=== PATIENT | female | born 1935 | race Caucasian/White ===

== ENCOUNTER 2016-11-08 10:09 | Observation (INO) | payer MEDICARE, BC ==
[~2016-11-08] VITALS: Ht 170.2 cm; Wt 65.0 kg
[~2016-11-08 10:09] MED LIST: CALC625 PO; CENTTAB9 PO; CHOL1CAP6 PO; CHOL4 PO; CLAR10TA7 PO; DONE5TAB14 PO; FLUO10TA PO; METO25 PO; NAME10TA PO; POTA20PA PO; VITA60003
[2016-11-08 10:13] VITALS: BP 178/71; PULSE 90; RESP 20; TEMP 98.3; O2SAT 98
[2016-11-08] MEDS ORDERED: SODIUM CHLORIDE 0.9% FLUSH 5 ML FLUSH IVF PRN (10:15)
[2016-11-08] MEDS ORDERED: MORPHINE SULFATE 4 MG/ML INJ IV PUSH ONE (10:30)
--- NOTE | 2016-11-08 10:32 | PD ---
HPI Chief Complaint: Fall Time Seen by Provider: 10:13 Travel History International Travel<30 days: No Contact w/Intl Traveler<30days: No Traveled to known affect area: No History of Present Illness HPI 80-year-old female with history of dementia brought in by ambulance from home for evaluation of head injury after an unwitnessed fall. 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 She found the patient on the floor. The patient was awake when she found the patient. The patient is complaining of some posterior head pain. She does not provide any other history and is likely secondary to her dementia. Med rec with the patient does not show that the patient is on any antiplatelets or anticoagulate. PFSH Past Medical History Alzheimer's Disease: Yes Heart Rhythm Problems: No Cardiovascular Problems: Yes High Cholesterol: No Chest Pain: No Congestive Heart Failure: No Dementia: Yes Diminished Hearing: No Hypertension: Yes Musculoskeletal: No Neurologic: No Respiratory: No Immunizations Current: Yes Menopausal: Yes Past Surgical History Appendectomy: Yes Cholecystectomy: Yes Hysterectomy: Yes Other Surgery: Yes Social History Alcohol Use: No Tobacco Use: No Substance Use: No Allergies-Medications (Allergen,Severity, Reaction): Coded Allergies: Contrast Media (Verified Allergy, Mild, 12/28/15) Sulfa (Verified Allergy, Mild, 12/28/15) Tetanus Toxoid (Verified Allergy, Mild, 12/28/15) Reported Meds & Prescriptions Reported Meds & Active Scripts Active Reported Fluoxetine (Fluoxetine HCl) 10 Mg Cap 10 Mg PO DAILY Vitamin D-1000 (Cholecalciferol) 1,000 Unit Tab 1,000 Units PO DAILY Metoprolol Tartrate 25 Mg Tab 25 Mg PO BID Centrum (Multiple Vitamins W/ Minerals) 1 Tab 1 Tab PO DAILY Sm Artificial Tears Opth Drops (Artificial Tear Solution Opth Drops) 1 Drops 1 Drop EACH EYE BID Alph-E (Vitamin E) 400 Unit Cap 400 Units PO DAILY Review of Systems Except as stated in HPI: all other systems reviewed are Neg Physical Exam Narrative GENERAL: Well-developed, well-nourished, awake, alert, no acute distress. SKIN: Warm and dry. Laceration to posterior scalp, moderate depth, no visible contamination, no active bleeding, galea intact. HEAD: Atraumatic. Normocephalic. EYES: Pupils equal and round. No scleral icterus. No injection or drainage. ENT: Mucous membranes pink and moist. NECK: Trachea midline. No JVD. No midline vertebral step-off or tenderness. CARDIOVASCULAR: Regular rate and rhythm. RESPIRATORY: No accessory muscle use. Clear to auscultation. Breath sounds equal bilaterally. GASTROINTESTINAL: Abdomen soft, non-tender, nondistended. MUSCULOSKELETAL: No obvious deformities. No clubbing. No cyanosis. No edema. NEUROLOGICAL: Awake and alert. No obvious cranial nerve deficits. Motor grossly within normal limits. Normal speech. No focal deficits. Data Data Last Documented VS Vital Signs Date Time Temp Pulse Resp B/P Pulse Ox O2 Delivery O2 Flow Rate FiO2 11/08/16 10:13 98.3 90 20 178/71 98 Orders Basic Metabolic Panel (Bmp) (11/08/16 10:14) Complete Blood Count With Diff (11/08/16 10:14) Prothrombin Time / Inr (Pt) (11/08/16 10:14) Act Partial Throm Time (Ptt) (11/08/16 10:14) Urinalysis - C+S If Indicated (11/08/16 10:14) Iv Access Insert/Monitor (11/08/16 10:14) Ecg Monitoring (11/08/16 10:14) Oximetry (11/08/16 10:14) Sodium Chloride 0.9% Flush (Ns Flush) (11/08/16 10:15) Electrocardiogram (11/08/16 10:14) Cath For Specimen (11/08/16 10:14) Chest, Single Ap (11/08/16 ) Ct Brain W/O Iv Contrast(Rout) (11/08/16 ) Ct Cerv Spine W/O Contrast (11/08/16 ) Morphine Inj (Morphine Inj) (11/08/16 10:30) Ckmb (Isoenzyme) Profile (11/08/16 10:28) Troponin I (11/08/16 10:28) Urine Culture (11/08/16 10:30) Ceftriaxone Inj (Rocephin Inj) (11/08/16 11:15) Wound Care (11/08/16 11:15) Lidocai-Epi 1%-1:100,000 Inj (Xylocaine- (11/08/16 11:15) Sodium Chlor 0.9% 1000 Ml Inj (Ns 1000 M (11/08/16 11:45) Labs Laboratory Tests Test 11/08/16 10:30 White Blood Count 6.4 TH/MM3 Red Blood Count 3.95 MIL/MM3 Hemoglobin 12.0 GM/DL Hematocrit 36.4 % Mean Corpuscular Volume 92.1 FL Mean Corpuscular Hemoglobin 30.3 PG Mean Corpuscular Hemoglobin 32.9 % Concent Red Cell Distribution Width 14.1 % Platelet Count 166 TH/MM3 Mean Platelet Volume 7.8 FL Neutrophils (%) (Auto) 56.4 % Lymphocytes (%) (Auto) 29.0 % Monocytes (%) (Auto) 9.9 % Eosinophils (%) (Auto) 4.2 % Basophils (%) (Auto) 0.5 % Neutrophils # (Auto) 3.6 TH/MM3 Lymphocytes # (Auto) 1.9 TH/MM3 Monocytes # (Auto) 0.6 TH/MM3 Eosinophils # (Auto) 0.3 TH/MM3 Basophils # (Auto) 0.0 TH/MM3 CBC Comment DIFF FINAL Differential Comment Prothrombin Time 10.8 SEC Prothromb Time International 1.0 RATIO Ratio Activated Partial 23.1 SEC Thromboplast Time Urine Color YELLOW Urine Turbidity HAZY Urine pH 7.5 Urine Specific [place] 1.014 Urine Protein NEG mg/dL Urine Glucose (UA) NEG mg/dL Urine Ketones NEG mg/dL Urine Occult Blood NEG Urine Nitrite POS Urine Bilirubin NEG Urine Urobilinogen LESS THAN 2.0 MG/DL Urine Leukocyte Esterase TRACE Urine RBC LESS THAN 1 /hpf Urine WBC 2 /hpf Urine Amorphous Sediment RARE Urine Bacteria OCC /hpf Urine Mucus FEW /lpf Microscopic Urinalysis Comment CATH-CULTURE IND Sodium Level 144 MEQ/L Potassium Level 4.3 MEQ/L Chloride Level 109 MEQ/L Carbon Dioxide Level 30.7 MEQ/L Anion Gap 4 MEQ/L Blood Urea Nitrogen 21 MG/DL Creatinine 1.39 MG/DL Estimat Glomerular Filtration 36 ML/MIN Rate Random Glucose 116 MG/DL Calcium Level 9.0 MG/DL [facility] Medical Decision Making Medical Screen Exam Complete: Yes Emergency Medical Condition: Yes Medical Record Reviewed: Yes Interpretation(s) EKG: Sinus, rate 90, normal axis, normal intervals, ST depressions in inferior and lateral leads Differential Diagnosis Syncope, dysrhythmia, ACS, mechanical fall, intracranial trauma, cervical spine injury Narrative Course Vital signs reviewed. CBC is unremarkable. BMP is remarkable for BUN 21, creatinine 1.29, GFR 36 which is worse than her baseline. UA is suggestive of UTI. The patient was given a dose of Rocephin. CT head: CONCLUSION: 1. 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 2. Moderate periventricular and subcortical white matter small vessel ischemic changes bilaterally. 3. Diffuse cerebral atrophy. 4. No acute hemorrhage, acute infarct, mass effect or extraaxial fluid collections. CT cervical spine: CONCLUSION: No acute disease. No evidence of fracture. Chest x-ray: CONCLUSION: Stable chest with no acute disease The patient was given a liter of normal saline for acute renal insufficiency. Given abnormal EKG and likely syncopal episode, the patient will be admitted for overnight observation and telemetry monitoring. Scalp laceration repaired by my PA. See his note for further details. The patient was not given tetanus as she is allergic. Case discussed with hospitalist Dr. De Leon who will admit the patient to his service. Diagnosis Primary Impression: Syncope Qualified Code: R55 - Syncope, unspecified syncope type Additional Impressions: Head injury Qualified Code: S09.90XA - Head injury, initial encounter Scalp laceration Qualified Code: S01.01XA - Scalp laceration, initial encounter Abnormal EKG UTI (urinary tract infection) Qualified Code: N39.0 - Urinary tract infection without hematuria, site unspecified Acute renal insufficiency Rich Marlow MD Nov 08, 2016 10:31
[2016-11-08 11:06] LABS: BACTERIA, URINE OCC /hpf; BLOOD, URINE NEG (NEG); COMMENT (UR) CATH-CULTURE IND; CULTURE IF INDICATED CATH CULTURE IND; GLUCOSE,URINE NEG (NEG); KETONE, URINE NEG (NEG); MUCUS URINE FEW /lpf (OCC); PH, URINE 7.5 (5.0-8.5); URINE COLOR YELLOW (YELLW/STRAW)
[2016-11-08 11:07] LABS: NITRITE,URINE POS (NEG)
[2016-11-08 11:11] LABS: AUTOMATED NEUTROPHIL # 3.6 TH/MM3 (1.8-7.7); BASOPHIL % 0.5 % (0.0-2.0); EOSINOPHIL # 0.3 TH/MM3 (0-0.4); EOSINOPHIL % 4.2 % (0.0-4.0); HEMATOCRIT 36.4 % (35.0-46.0); HEMO FLAGS DIFF FINAL; LYMPHOCYTE # 1.9 TH/MM3 (1.0-4.8); MEAN CELL VOLUME 92.1 FL (80.0-100.0); MEAN CORPUSCULAR HEMOGLOBIN 30.3 PG (27.0-34.0); MEAN CORPUSCULAR HGB CONC 32.9 % (32.0-36.0); MONO % 9.9 % (0.0-8.0); NEUT % 56.4 % (16.0-70.0); PLATELET COUNT 166 TH/MM3 (150-450); RED BLOOD COUNT 3.95 MIL/MM3 (4.00-5.30); RED CELL DISTRIBUTION WIDTH 14.1 % (11.6-17.2); WHITE BLOOD COUNT 6.4 TH/MM3 (4.0-11.0)
[2016-11-08 11:15] LABS: APTT (PATIENT) 23.1 SEC (24.3-30.1); PROTHROMBIN TIME - PATIENT 10.8 SEC (9.8-11.6)
[2016-11-08] MEDS ORDERED: LIDOCAINE 1%/EPINEPHrine 1:100,000 SOLN 20 ML VIAL INFIL ONE (11:15)
[2016-11-08] MEDS ORDERED: cefTRIAXone INJ 1,000 MG in SODIUM CHLORIDE 0.9% INJ 100 ML IV ONE (11:15)
--- NOTE | 2016-11-08 11:18 | RADRPT ---
EXAM DATE/TIME: 11/08/2016 10:40 [facility] COMPARISON: CHEST SINGLE AP, December 28, 2015, 12:47. INDICATIONS : Syncope, laceration back of head. MEDICAL HISTORY : Unresponsive SURGICAL HISTORY : Unresponsive ENCOUNTER: Initial ACUITY: 1 day PAIN SCORE: Non-responsive. LOCATION: Left chest FINDINGS: Mild biapical pleural thickening is noted. Patchy granulomatous calcifications are noted. There is no evidence of infiltrate or effusion. Cardiomediastinal contours are satisfactory for projection CONCLUSION: Stable chest with no acute disease Jamarcus Kovacs MD on November 08, 2016 at 11:14 Board Certified Radiologist. This report was verified electronically.
[2016-11-08 11:31] LABS: BICARBONATE 30.7 MEQ/L (21.0-32.0)
--- NOTE | 2016-11-08 11:33 | RADRPT ---
EXAM DATE/TIME: 11/08/2016 11:00 [facility] COMPARISON: CT CERVICAL SPINE W/O CONTRAST, March 09, 2015, 1:26. INDICATIONS : Trauma; fall, laceration to back of head. RADIATION DOSE: 21.08 CTDIvol (mGy) MEDICAL HISTORY : Alzheimer's Hypertension. SURGICAL HISTORY : None. ENCOUNTER: Initial ACUITY: 1 day PAIN SCALE: 3/10 LOCATION: neck TECHNIQUE: Volumetric scanning of the cervical spine was performed. Multiplanar reconstructions in the sagittal, coronal and oblique axial planes were performed. Using automated exposure control and adjustment o f the mA and/or kV according to patient size, radiation dose was kept as low as reasonably achievable to obtain optimal diagnostic quality images. FINDINGS: The cervical spine maintains normal alignment without evidence of fracture or dislocation. There is n o evidence of disc protrusion. There are severe bilateral facet degenerative changes present from the level of c3-c6. The prevertebral soft tissues are normal. Imaging of the lungs demonstrates apical scarring. CONCLUSION: No acute disease. No evidence of fracture. Courtney Diaz MD on November 08, 2016 at 11:24 Board Certified Radiologist. This report was verified electronically.
[2016-11-08 11:35] LABS: POTASSIUM 4.3 MEQ/L (3.5-5.1)
[2016-11-08] MEDS ORDERED: SODIUM CHLOR 0.9% 1000 ML INJ 1,000 ML IV ONE (11:45)
--- NOTE | 2016-11-08 11:46 | RADRPT ---
EXAM DATE/TIME: 11/08/2016 11:00 [facility] COMPARISON: CT BRAIN W/O CONTRAST, December 28, 2015, 13:22. INDICATIONS: Trauma; fall, laceration to posterior head. RADIATION DOSE: 31.13 CTDIvol (mGy) MEDICAL HISTORY: Alzheimer's Hypertension. SURGICAL HISTORY: None. ENCOUNTER: Initial ACUITY: 1 day PAIN SCALE: 4/10 LOCATION: Occipital TECHNIQUE: Multiple contiguous axial images were obtained of the head. Using automated exposure control and adj ustment of the mA and/or kV according to patient size, radiation dose was kept as low as reasonably a chievable to obtain optimal diagnostic quality images. FINDINGS: Focal encephalomalacia is noted involving the left occipital lobe. There is also encephalomalacia in volving the left temporal lobe. Moderate periventricular and subcortical white matter small vessel ischemic you ges are noted bilaterally. Diffuse cerebral atrophy is noted. there is no acute hemorrhage, midline shift or extr aaxial fluid collections. CONCLUSION: 1. Encephalomalacia involving the left temporal and occipital lobes consistent with probable old inf arcts. 2. Moderate periventricular and subcortical white matter small vessel ischemic changes bilaterally. 3. Diffuse cerebral atrophy. 4. No acute hemorrhage, acute infarct, mass effect or extraaxial fluid collections. Adalid Castano MD on November 08, 2016 at 11:14 Board Certified Radiologist. This report was verified electronically.
--- NOTE | 2016-11-08 11:46 | PD ---
Physical Exam Date Seen by Provider: Nov 08, 2016 Time Seen by Provider: 11:44 Narrative 80-year-old female that presents to the ED for evaluation of laceration to the scalp. My attending asked me to repair laceration. Please refer to his note for pertinent findings in history and physical. Data Data Last Documented VS Vital Signs Date Time Temp Pulse Resp B/P Pulse Ox O2 Delivery O2 Flow Rate FiO2 11/08/16 10:13 98.3 90 20 178/71 98 Orders Basic Metabolic Panel (Bmp) (11/08/16 10:14) Complete Blood Count With Diff (11/08/16 10:14) Prothrombin Time / Inr (Pt) (11/08/16 10:14) Act Partial Throm Time (Ptt) (11/08/16 10:14) Urinalysis - C+S If Indicated (11/08/16 10:14) Iv Access Insert/Monitor (11/08/16 10:14) Ecg Monitoring (11/08/16 10:14) Oximetry (11/08/16 10:14) Sodium Chloride 0.9% Flush (Ns Flush) (11/08/16 10:15) Electrocardiogram (11/08/16 10:14) Cath For Specimen (11/08/16 10:14) Chest, Single Ap (11/08/16 ) Ct Brain W/O Iv Contrast(Rout) (11/08/16 ) Ct Cerv Spine W/O Contrast (11/08/16 ) Morphine Inj (Morphine Inj) (11/08/16 10:30) Ckmb (Isoenzyme) Profile (11/08/16 10:28) Troponin I (11/08/16 10:28) Urine Culture (11/08/16 10:30) Ceftriaxone Inj (Rocephin Inj) (11/08/16 11:15) Wound Care (11/08/16 11:15) Lidocai-Epi 1%-1:100,000 Inj (Xylocaine- (11/08/16 11:15) Sodium Chlor 0.9% 1000 Ml Inj (Ns 1000 M (11/08/16 11:45) Labs Laboratory Tests Test 11/08/16 10:30 White Blood Count 6.4 TH/MM3 Red Blood Count 3.95 MIL/MM3 Hemoglobin 12.0 GM/DL Hematocrit 36.4 % Mean Corpuscular Volume 92.1 FL Mean Corpuscular Hemoglobin 30.3 PG Mean Corpuscular Hemoglobin 32.9 % Concent Red Cell Distribution Width 14.1 % Platelet Count 166 TH/MM3 Mean Platelet Volume 7.8 FL Neutrophils (%) (Auto) 56.4 % Lymphocytes (%) (Auto) 29.0 % Monocytes (%) (Auto) 9.9 % Eosinophils (%) (Auto) 4.2 % Basophils (%) (Auto) 0.5 % Neutrophils # (Auto) 3.6 TH/MM3 Lymphocytes # (Auto) 1.9 TH/MM3 Monocytes # (Auto) 0.6 TH/MM3 Eosinophils # (Auto) 0.3 TH/MM3 Basophils # (Auto) 0.0 TH/MM3 CBC Comment DIFF FINAL Differential Comment Prothrombin Time 10.8 SEC Prothromb Time International 1.0 RATIO Ratio Activated Partial 23.1 SEC Thromboplast Time Urine Color YELLOW Urine Turbidity HAZY Urine pH 7.5 Urine Specific [place] 1.014 Urine Protein NEG mg/dL Urine Glucose (UA) NEG mg/dL Urine Ketones NEG mg/dL Urine Occult Blood NEG Urine Nitrite POS Urine Bilirubin NEG Urine Urobilinogen LESS THAN 2.0 MG/DL Urine Leukocyte Esterase TRACE Urine RBC LESS THAN 1 /hpf Urine WBC 2 /hpf Urine Amorphous Sediment RARE Urine Bacteria OCC /hpf Urine Mucus FEW /lpf Microscopic Urinalysis Comment CATH-CULTURE IND Sodium Level 144 MEQ/L Potassium Level 4.3 MEQ/L Chloride Level 109 MEQ/L Carbon Dioxide Level 30.7 MEQ/L Anion Gap 4 MEQ/L Blood Urea Nitrogen 21 MG/DL Creatinine 1.39 MG/DL Estimat Glomerular Filtration 36 ML/MIN Rate Random Glucose 116 MG/DL Calcium Level 9.0 MG/DL [facility] Medical Record Reviewed: Yes Supervised Visit with MARLO: No Procedures Procedure Narrative LACERATION LOCATION: occipital scalp LENGTH: 2 cm NUMBER OF STITCHES/LUKE: 6 luke REPAIR: The area of the laceration was prepped with Betadine and sterilely draped. The laceration was infiltrated with 1% Xylocaine. The wound was copiously irrigated and explored without evidence of foreign body, tendon injury or neurovascular injury. The wound was closed using sterile stapler. This was a 1 layer repair. A sterile dressing was applied. The patient was advised to keep the dressing clean and dry. Patient tolerated the procedure well. Diagnosis Primary Impression: Syncope Qualified Code: R55 - Syncope, unspecified syncope type Additional Impressions: Abnormal EKG Acute renal insufficiency Scalp laceration Qualified Code: S01.01XA - Scalp laceration, initial encounter UTI (urinary tract infection) Qualified Code: N39.0 - Urinary tract infection without hematuria, site unspecified Head injury Qualified Code: S09.90XA - Head injury, initial encounter Ambrosio Krause Nov 08, 2016 11:46
[2016-11-08] MEDS ORDERED: MULT-6 PO (12:12)
[2016-11-08] MEDS ORDERED: METO25TA3 PO (12:12)
[2016-11-08] MEDS ORDERED: [UNRECOGNIZED DRUG - OTHER] EACH EYE (12:12)
[2016-11-08] MEDS ORDERED: ALPH400C2 PO (12:12)
[2016-11-08] MEDS ORDERED: METO-309 PO (12:12)
[2016-11-08] MEDS ORDERED: VITA1000 PO (12:13)
[2016-11-08] MEDS ORDERED: FLUO10CA5 PO (12:13)
[2016-11-08] MEDS ORDERED: NAME10TA PO (12:49)
[2016-11-08] MEDS ORDERED: LORA10TA PO (12:49)
[2016-11-08] MEDS ORDERED: NALOXONE HCL 0.4 MG/ML AMP IV PRN (13:00)
[2016-11-08] MEDS ORDERED: SODIUM CHLORIDE 0.9% FLUSH 5 ML FLUSH FLUSH PRN (13:00)
[2016-11-08] MEDS ORDERED: ONDANSETRON HCL 4 MG/2 ML VIAL IVP PRN (13:00)
[2016-11-08 13:08] VITALS: BP 127/60; PULSE 76; RESP 20; O2SAT 97
--- NOTE | 2016-11-08 15:14 | HHI.HP ---
HPI Service [facility] Primary Care Physician Jose Alberto Richard MD Admission Diagnosis syncope, abnormal EKG, head injury, scalp laceration, FERMIN Diagnoses: Chief Complaint: fall (Jacqui Frederick) Travel History International Travel<30 Days: No Contact w/Intl Traveler <30 Da: No Traveled to Known Affected Are: No (Jacqui Frederick) History of Present Illness This is an 80-year-old female with history of dementia, atrial fibrillation, falls, previous subdural bleed secondary to fall, HTN. Pt. brought in by ambulance from home for evaluation of head injury after fall. Pt. not on any blood thinners, no ASA. Pt. has caregivers due to dementia. I spoke to caregiver as pt. is not able to provide any details. Caregiver indicates pt. was standing at kitchen counter fixing a bowl of food for the cat, when she noted the patient falling backwards. Legs did not buckle, pt. just went down. It is not clear if pt had preceding symptoms. Pt. was awake, complained of head pain. She was brought to ED, was found with laceration which was sutured. Laboratory work up remarkable for renal insufficiency BUN/Creat 21/1.34, no WBC elevation. UA positive for UTI. Caregiver endorses pt. has been more sleepy than usual, no reported fever, chills, cough, sputum production. She is incontinent of urine. She has noted that pt. appears more unsteady, doesn't use assistive devices. CT of head was done with results old infarcts. No acute findings. CXR stable. Cervical spine CT was noted without any acute injuries. Last Impressions Head CT 11/08/16 0000 Signed Impressions: Service Date/Time: Tuesday, November 08, 2016 11:00 - CONCLUSION: 1. 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 2. Moderate periventricular and subcortical white matter small vessel ischemic changes bilaterally. 3. Diffuse cerebral atrophy. 4. No acute hemorrhage, acute infarct, mass effect or extraaxial fluid collections. Adalid Castano MD Chest X-Ray 11/08/16 0000 Signed Impressions: Service Date/Time: Tuesday, November 08, 2016 10:40 - CONCLUSION: Stable chest with no acute disease Jamarcus Kovacs MD Cervical Spine CT 11/08/16 0000 Signed Impressions: Service Date/Time: Tuesday, November 08, 2016 11:00 - CONCLUSION: No acute disease. No evidence of fracture. Courtney Diaz MD Pt. was given IVF, started on antibiotics. EKG was reviewed by ED physician, Sinus, rate 90, normal axis, normal intervals, ST depressions in inferior and lateral leads. Pt. has a rn manager per caregiver's report, was seen 3 months ago. She can't recall name and will RN to provide name. As indicated above, prior history of afib, none noted. She has been evaluated by Dr. Valle in 2006 when she had a cardiac cath, which was clear. Dr. Mcwilliams saw her in 2015 when she was admitted for the fall with subdural bleed for afib with RVR. She was put on BB and recommended against anticoagulation on account of frequent falls and bleed. Pt. is examined in the ED, caregiver is at bsd. She is resting comfortably, oriented to self only. No focal deficits. Pt. admitted for further evaluation and treatment. (Jacqui Frederick) Review of Systems ROS Limitations: Poor Historian (demented, unable to provide any details ) ( Jacqui Frederick) Past Family Social History Past Medical History paroxysmal afib previous falls with subdural hemorrhage, non surgical treatment dementia gallstones HTN Abd. bruit IBS SMA stenosis Past Surgical History Appendectomy Cholecystectomy Hysterectomy left elbow fracture and repair 10/2015 Reported Medications Reported Meds & Active Scripts Active Reported Loratadine 10 Mg Tab 10 Mg PO DAILY Namenda (Memantine) 10 Mg Tab 10 Mg PO BID Fluoxetine (Fluoxetine HCl) 10 Mg Cap 10 Mg PO DAILY Vitamin D-1000 (Cholecalciferol) 1,000 Unit Tab 1,000 Units PO DAILY Metoprolol Tartrate 25 Mg Tab 25 Mg PO BID Centrum (Multiple Vitamins W/ Minerals) 1 Tab 1 Tab PO DAILY Sm Artificial Tears Opth Drops (Artificial Tear Solution Opth Drops) 1 Drops 1 Drop EACH EYE BID Alph-E (Vitamin E) 400 Unit Cap 400 Units PO DAILY (Jacqui Frederick) Allergies: Coded Allergies: Contrast Media (Verified Allergy, Mild, 12/28/15) Sulfa (Verified Allergy, Mild, 12/28/15) Tetanus Toxoid (Verified Allergy, Mild, 12/28/15) Active Ordered Medications Inpatient Medications Acetaminophen (Tylenol) 650 mg Q4H PRN PO TEMP > 100.4; Start 11/08/16 at 13:00 Ceftriaxone Sodium/Sodium Chloride (Rocephin Inj/NS Inj) 100 ml @ 200 mls/hr Q24H IV ; Start 11/09/16 at 13:00 IV Flush (NS Flush) 2 ml BID FLUSH ; Start 11/08/16 at 21:00 Lidocaine/ Epinephrine 10 ml 10 ml ONCE ONCE INFIL Last administered on 11:15; Start 11/08/16 at 11:15; Stop 11/08/16 at 11:16; Status DC Morphine Sulfate (Morphine Inj) 2 mg ONCE ONCE IV PUSH Last administered on 11:26; Start 11/08/16 at 10:30; Stop 11/08/16 at 10:31; Status DC Naloxone HCl 0.4 mg 0.4 mg UNSCH PRN IV SEE LABEL COMMENTS; Start 11/08/16 at 13:00 Ondansetron HCl (Zofran Inj) 4 mg Q6H PRN IVP NAUSEA OR VOMITING; Start at 13:00 Sodium Chloride (1/2 NS 1000 ml Inj) 1,000 ml @ 75 mls/hr [id number] IV ; Start at 13:00 Family History Unable to obtain Social History Pt. has a son, granddaughter Gilma is POA and lives out of state. Pt. has caregivers 24 hours. No ETOH, no substance abuse, smoking. No assistive devices. Pt. ambulatory, able to feed herself, communicate needs (Jacqui Frederick) Physical Exam Vital Signs Vital Signs Date Time Temp Pulse Resp B/P Pulse Ox O2 Delivery O2 Flow Rate FiO2 11/08/16 13:08 76 20 127/60 97 Room Air 11/08/16 11:31 20 11/08/16 10:13 98.3 90 20 178/71 98 Physical Exam GENERAL: This is a well-nourished, well-developed patient, in no apparent distress. SKIN: No rashes, ecchymoses or lesions. Cool and dry. HEAD: Left posterior scalp with laceration, sutured, tender to touch. Oozing blood. EYES: Pupils equal round and reactive. Extraocular motions intact. No scleral icterus. No injection or drainage. ENT: Nose without bleeding, purulent drainage or septal hematoma. Throat without erythema, tonsillar hypertrophy or exudate. Uvula midline. Airway patent. NECK: Trachea midline. No JVD or lymphadenopathy. Supple, nontender, no meningeal signs. CARDIOVASCULAR: Regular rate and rhythm without murmurs, gallops, or rubs. RESPIRATORY: Clear to auscultation. Breath sounds equal bilaterally. No wheezes , rales, or rhonchi. GASTROINTESTINAL: Abdomen soft, non-tender, nondistended. No hepato-splenomegaly , or palpable masses. No guarding. MUSCULOSKELETAL: Extremities without clubbing, cyanosis, or edema. No joint tenderness, effusion, or edema noted. No calf tenderness. Negative Homans sign bilaterally. NEUROLOGICAL: Awake, alert, demented. Speaks very little. Follows simple commands. Laboratory Laboratory Tests Test 11/08/16 10:30 White Blood Count 6.4 Red Blood Count 3.95 Hemoglobin 12.0 Hematocrit 36.4 Mean Corpuscular Volume 92.1 Mean Corpuscular Hemoglobin 30.3 Mean Corpuscular Hemoglobin 32.9 Concent Red Cell Distribution Width 14.1 Platelet Count 166 Mean Platelet Volume 7.8 Neutrophils (%) (Auto) 56.4 Lymphocytes (%) (Auto) 29.0 Monocytes (%) (Auto) 9.9 Eosinophils (%) (Auto) 4.2 Basophils (%) (Auto) 0.5 Neutrophils # (Auto) 3.6 Lymphocytes # (Auto) 1.9 Monocytes # (Auto) 0.6 Eosinophils # (Auto) 0.3 Basophils # (Auto) 0.0 CBC Comment DIFF FINAL Differential Comment Prothrombin Time 10.8 Prothromb Time International 1.0 Ratio Activated Partial 23.1 Thromboplast Time Urine Color YELLOW Urine Turbidity HAZY Urine pH 7.5 Urine Specific [place] 1.014 Urine Protein NEG Urine Glucose (UA) NEG Urine Ketones NEG Urine Occult Blood NEG Urine Nitrite POS Urine Bilirubin NEG Urine Urobilinogen LESS THAN 2.0 Urine Leukocyte Esterase TRACE Urine RBC LESS THAN 1 Urine WBC 2 Urine Amorphous Sediment RARE Urine Bacteria OCC Urine Mucus FEW Microscopic Urinalysis Comment CATH-CULTURE IND Sodium Level 144 Potassium Level 4.3 Chloride Level 109 Carbon Dioxide Level 30.7 Anion Gap 4 Blood Urea Nitrogen 21 Creatinine 1.39 Estimat Glomerular Filtration 36 Rate Random Glucose 116 Calcium Level 9.0 Date/Time Procedure Status Source Growth 11/08/16 10:30 Urine Culture Received Urine Catheterized Urine Pending (Jacqui Frederick) Result Diagram: 11/08/16 1030 11/08/16 1030 Imaging Last Impressions Head CT 11/08/16 0000 Signed Impressions: Service Date/Time: Tuesday, November 08, 2016 11:00 - CONCLUSION: 1. 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 2. Moderate periventricular and subcortical white matter small vessel ischemic changes bilaterally. 3. Diffuse cerebral atrophy. 4. No acute hemorrhage, acute infarct, mass effect or extraaxial fluid collections. Adalid Castano MD Chest X-Ray 11/08/16 0000 Signed Impressions: Service Date/Time: Tuesday, November 08, 2016 10:40 - CONCLUSION: Stable chest with no acute disease Jamarcus Kovacs MD Cervical Spine CT 11/08/16 0000 Signed Impressions: Service Date/Time: Tuesday, November 08, 2016 11:00 - CONCLUSION: No acute disease. No evidence of fracture. Courtney Diaz MD (Jacqui Frederick) Assessment and Plan Problem List: (1) Syncope (2) Fall (3) Dehydration (4) UTI (urinary tract infection) (5) Acute renal insufficiency (6) Abnormal EKG (7) Head injury (8) Scalp laceration Assessment and Plan Admit to Dr. De Leon 80-year-old female with history of dementia, atrial fibrillation, falls, previous subdural bleed secondary to fall, HTN. Pt. brought in by ambulance from home after she fell backwards, while she was standing. Syncope, unclear etiology, found dehydrated, UTI, abnormal EKG. -Continue with IVF -Continuous cardiac telemetry -will check 2D echo -Continue antibiotics -caregiver to find rn manager's name and provide to RN, will consult -Orthostatics q shift UTI -Continue abx -follow urine cultures. Renal insufficiency poss. sec. dehydration -Continue IVF -BMP in am Dementia, hx of falls. -monitor -Fall precautions -PT eval and tx -CM to arrange HHC/PT CT findings of old infarcts -no ASA -check echo HTN, stable -Resume home meds Hx of afib -telemetry monitoring -2D echo -no anticoagulation recommended, hx of falls with previous brain bleed. Home medications reviewed, initiated as indicated SCDs for DVT prophylaxis Plan of care discussed with caregiver, RN. Further management of the patient will be dependent on the hospital course. This patient was seen by myself and Dr. De Leon, this H/P is written on his behalf. (Jacqui Frederick) Assessment and Plan Patient seen and examined as above Chart reviewed including Medications and labs and radiological data reviewed Plan of care discussed with CONTINGENTS SUPERVISOR Try to explain to patient (Dea De Leon MD) Problem Qualifiers (1) Syncope: Qualified Code: R55 - Syncope, unspecified syncope type (2) Fall: Qualified Code: W19.XXXA - Fall, initial encounter (3) UTI (urinary tract infection): Qualified Code: N39.0 - Urinary tract infection without hematuria, site unspecified (4) Head injury: Qualified Code: S09.90XA - Head injury, initial encounter (5) Scalp laceration: Qualified Code: S01.01XA - Scalp laceration, initial encounter Jacqui Frederick Nov 08, 2016 15:14 Dea De Leon MD Nov 08, 2016 16:02
[2016-11-08] MEDS: SODIUM CHLOR 0.45% 1000 ML INJ 1,000 ML IV SCH (15:16)
[2016-11-08 16:24] VITALS: BP 163/74; PULSE 85; RESP 19; TEMP 98.2; O2SAT 97
--- NOTE | 2016-11-08 16:28 | HHI.FF ---
Face to Face Verification Diagnosis: (1) Dehydration (2) Acute renal insufficiency (3) Syncope (4) UTI (urinary tract infection) (5) Head injury (6) Fall (7) Abnormal EKG (8) Scalp laceration Physical Therapy Order: Evaluate and Treat Home Health Nursing Order: Medical education Nursing assessment with vital signs Preform Plate Maker Order: To Evaluate: Living conditions/environment, Support services Order: To Provide: Long range planning, Community services I have seen patient Mi Wing on 11/08/16. My clinical findings support the need for the requested home health care services because: Deconditioned w/ increased weakness Limited ability to care for self Need for psychosocial assistance Impaired cognition/judgement I certify that my clinical findings support that this patient is homebound because: Impaired cognitive ability/safety Unsteady gait/balance Unsafe to leave home unassisted Need for psychosocial assistance Jacqui Frederick Nov 08, 2016 16:28
[2016-11-08 20:18] VITALS: BP 130/60; PULSE 103; RESP 20; TEMP 98.2; O2SAT 95
[2016-11-08] MEDS: SODIUM CHLORIDE 0.9% FLUSH 5 ML FLUSH FLUSH SCH (21:00)
[2016-11-08 21:30] VITALS: PULSE 99
[2016-11-08] MEDS: MEMANTINE HCL 10 MG TAB PO SCH (22:03)
[2016-11-08] MEDS: METOPROLOL TARTRATE 25 MG TAB PO SCH (22:03)
--- NOTE | 2016-11-08 22:03 | EC ---
Study Study Date:11/08/2016 STUDY CONCLUSIONS SUMMARY - Procedure narrative: Transthoracic echocardiography. Image quality was fair. Scanning was performed from the parasternal, apical, and subcostal acoustic windows. - Left ventricle: The cavity size was normal. Wall thickness was normal. Systolic function was mildly reduced. The estimated ejection fraction was in the range of 40% to 45%. Diffuse hypokinesis. - Mitral valve: Trace regurgitation. - Tricuspid valve: Trace regurgitation. If LV function is below 40, please consider prescribing an ACEI or ARB or document rationale for non-use. PROCEDURE DATA STUDY STATUS: Elective. Procedure: Transthoracic echocardiography. Image quality was fair. Scanning was performed from the parasternal, apical, and subcostal acoustic windows. Study completion: The patient tolerated the procedure well. Transthoracic echocardiography. M-mode, complete 2D, complete spectral Doppler, and color Doppler. Patient status: Inpatient. CARDIAC ANATOMY LEFT VENTRICLE: The cavity size was normal. Wall thickness was normal. Systolic function was mildly reduced. The estimated ejection fraction was in the range of 40% to 45%. Diffuse hypokinesis. AORTIC VALVE: Trileaflet; normal thickness leaflets. Doppler: Transvalvular velocity was within the normal range. There was no stenosis. No regurgitation. AORTA: Aortic root: The aortic root was normal in size. MITRAL VALVE: Structurally normal valve. Doppler: Transvalvular velocity was within the normal range. There was no evidence for stenosis. Trace regurgitation. Mean gradient: 3mm Hg (D). Peak gradient: 7mm Hg (D). LEFT ATRIUM: The atrium was normal in size. RIGHT VENTRICLE: The cavity size was normal. Wall thickness was normal. PULMONIC VALVE: Doppler: Transvalvular velocity was within the normal range. There was no evidence for stenosis. No regurgitation. TRICUSPID VALVE: Structurally normal valve. Doppler: Transvalvular velocity was within the normal range. Trace regurgitation. PULMONARY ARTERY: The main pulmonary artery was normal-sized. Systolic pressure was within the normal range. RIGHT ATRIUM: The atrium was normal in size. PERICARDIUM: There was no pericardial effusion. SYSTEMIC VEINS: Inferior vena cava: The vessel was normal in size. BASIC MEASUREMENTS ADULT Normal Left ventricle LV internal dimension, ED, chordal level, 44 mm 43-52 PLAX LV posterior wall thickness, ED 7.65 mm IVS/LVPW ratio, ED 1.18 <1.3 Ventricular septum Septal thickness, ED 9.04 mm Aortic valve Leaflet separation 19 mm 15-26 Left atrium Anterior-posterior dimension 29 mm Right ventricle RV internal dimension, ED, PLAX *18.2 mm 19-38 BASIC MEASUREMENTS ADULT Normal Aortic valve Leaflet separation 19 mm 15-26 Aorta Root diameter, ED 27 mm 20-37 DOPPLER MEASUREMENTS ADULT Normal Main pulmonary artery Pressure, S 25 mm Hg =30 Aortic valve VTI, S 39.1 cm Mitral valve Peak E-wave velocity 132 cm/s Peak A-wave velocity 141 cm/s Mean velocity, D 83.6 cm/s Mean gradient, D 3 mm Hg Peak gradient, D 7 mm Hg Peak E/A ratio 0.9 Maximal regurgitant velocity 471 cm/s Tricuspid valve Regurgitant peak velocity 191 cm/s Peak RV-RA gradient, S 15 mm Hg Maximal regurgitant velocity 191 cm/s Systemic veins Estimated CVP 10 mm Hg Right ventricle RV pressure, S 25 mm Hg <30 LEGEND: Mean values are shown as u=mean value. Asterisk (*) anderson values outside specified normal range. Prepared and signed by Vincent Holly [id number]
[2016-11-08 22:31] LABS: CREATINE KINASE 60 U/L (26-192)
[2016-11-08 23:30] VITALS: BP 132/62; PULSE 94; RESP 19; TEMP 98; O2SAT 96
[2016-11-09] VITALS (7 sets, daily range): BP systolic 115–139; BP diastolic 57–66; PULSE 75–102; RESP 16–20; TEMP 97.4–98.5; O2SAT 95–97
[2016-11-09] MEDS: SODIUM CHLOR 0.45% 1000 ML INJ 1,000 ML IV SCH ×2 (02:20→05:57)
[2016-11-09] MEDS: ACETAMINOPHEN 325 MG TAB PO PRN ×2 (05:56→20:36)
[2016-11-09 07:27] LABS: BASOPHIL % 0.4 % (0.0-2.0); EOSINOPHIL # 0.2 TH/MM3 (0-0.4); HEMATOCRIT 33.4 % (35.0-46.0); HEMO FLAGS DIFF FINAL; LYMPH % 37.6 % (9.0-44.0); LYMPHOCYTE # 2.4 TH/MM3 (1.0-4.8); MEAN CELL VOLUME 91.2 FL (80.0-100.0); MEAN CORPUSCULAR HEMOGLOBIN 30.7 PG (27.0-34.0); MEAN CORPUSCULAR HGB CONC 33.7 % (32.0-36.0); MONO % 10.8 % (0.0-8.0); NEUT % 48.2 % (16.0-70.0); PLATELET COUNT 142 TH/MM3 (150-450); RED BLOOD COUNT 3.66 MIL/MM3 (4.00-5.30); RED CELL DISTRIBUTION WIDTH 13.7 % (11.6-17.2); WHITE BLOOD COUNT 6.3 TH/MM3 (4.0-11.0)
[2016-11-09 07:50] LABS: BICARBONATE 26.5 MEQ/L (21.0-32.0); POTASSIUM 3.8 MEQ/L (3.5-5.1)
[2016-11-09] MEDS: SODIUM CHLORIDE 0.9% FLUSH 5 ML FLUSH FLUSH SCH ×2 (09:00→21:00)
--- NOTE | 2016-11-09 10:03 | HHI.PR ---
Subjective Remarks Patient is sitting in her bed enjoying her breakfast. Offering no complaint. No headache. She is confused but pleasant. Has dementia. Caregiver at bedside. Objective Objective Results - Vital Signs Date Time Temp Pulse Resp B/P Pulse Ox O2 Delivery O2 Flow Rate FiO2 11/09/16 08:34 98.4 89 16 121/59 96 11/09/16 04:27 98.1 91 19 130/62 95 11/08/16 23:30 98.0 94 19 132/62 96 11/08/16 21:30 99 11/08/16 20:18 98.2 103 20 130/60 95 11/08/16 16:24 98.2 85 19 163/74 97 11/08/16 13:08 76 20 127/60 97 Room Air 11/08/16 11:31 20 11/08/16 10:13 98.3 90 20 178/71 98 I/O 11/08/16 11/08/16 11/08/16 11/09/16 11/09/16 11/09/16 07:00 15:00 23:00 07:00 15:00 23:00 Intake Total 837 ml Output Total 700 ml Balance -700 ml 837 ml Intake IV Total 837 ml Output Urine Total 700 ml # Voids 1 1 1 Result Diagram: 11/09/16 0704 11/09/16 0704 Imaging Last Impressions Head CT 11/08/16 0000 Signed Impressions: Service Date/Time: Tuesday, November 08, 2016 11:00 - CONCLUSION: 1. 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 2. Moderate periventricular and subcortical white matter small vessel ischemic changes bilaterally. 3. Diffuse cerebral atrophy. 4. No acute hemorrhage, acute infarct, mass effect or extraaxial fluid collections. Adalid Castano MD Chest X-Ray 11/08/16 0000 Signed Impressions: Service Date/Time: Tuesday, November 08, 2016 10:40 - CONCLUSION: Stable chest with no acute disease Jamarcus Kovacs MD Cervical Spine CT 11/08/16 0000 Signed Impressions: Service Date/Time: Tuesday, November 08, 2016 11:00 - CONCLUSION: No acute disease. No evidence of fracture. Courtney Diaz MD Other Results Laboratory Tests Test 11/08/16 11/09/16 10:30 07:04 White Blood Count 6.4 6.3 Red Blood Count 3.95 3.66 Hemoglobin 12.0 11.3 Hematocrit 36.4 33.4 Mean Corpuscular Volume 92.1 91.2 Mean Corpuscular Hemoglobin 30.3 30.7 Mean Corpuscular Hemoglobin 32.9 33.7 Concent Red Cell Distribution Width 14.1 13.7 Platelet Count 166 142 Mean Platelet Volume 7.8 7.4 Neutrophils (%) (Auto) 56.4 48.2 Lymphocytes (%) (Auto) 29.0 37.6 Monocytes (%) (Auto) 9.9 10.8 Eosinophils (%) (Auto) 4.2 3.0 Basophils (%) (Auto) 0.5 0.4 Neutrophils # (Auto) 3.6 3.0 Lymphocytes # (Auto) 1.9 2.4 Monocytes # (Auto) 0.6 0.7 Eosinophils # (Auto) 0.3 0.2 Basophils # (Auto) 0.0 0.0 CBC Comment DIFF FINAL DIFF FINAL Differential Comment Prothrombin Time 10.8 Prothromb Time International 1.0 Ratio Activated Partial 23.1 Thromboplast Time Urine Color YELLOW Urine Turbidity HAZY Urine pH 7.5 Urine Specific [place] 1.014 Urine Protein NEG Urine Glucose (UA) NEG Urine Ketones NEG Urine Occult Blood NEG Urine Nitrite POS Urine Bilirubin NEG Urine Urobilinogen LESS THAN 2.0 Urine Leukocyte Esterase TRACE Urine RBC LESS THAN 1 Urine WBC 2 Urine Amorphous Sediment RARE Urine Bacteria OCC Urine Mucus FEW Microscopic Urinalysis Comment CATH-CULTURE IND Sodium Level 144 144 Potassium Level 4.3 3.8 Chloride Level 109 109 Carbon Dioxide Level 30.7 26.5 Anion Gap 4 9 Blood Urea Nitrogen 21 18 Creatinine 1.39 0.84 Estimat Glomerular Filtration 36 65 Rate Random Glucose 116 87 Calcium Level 9.0 8.5 Total Creatine Kinase 60 Troponin I LESS THAN 0.02 Date/Time Procedure Status Source Growth 11/08/16 10:30 Urine Culture Received Urine Catheterized Urine Pending Physical Exam Physical Exam GENERAL: This is a well-nourished, well-developed patient, in no apparent distress. SKIN: No rashes, ecchymoses or lesions. Cool and dry. HEAD: Left posterior scalp with laceration, luke, tender to touch. Oozing blood. EYES: Pupils equal round and reactive. Extraocular motions intact. No scleral icterus. No injection or drainage. ENT: Nose without bleeding, purulent drainage. Throat without erythema, tonsillar hypertrophy or exudate. Uvula midline. Airway patent. NECK: Trachea midline. No JVD or lymphadenopathy. Supple, nontender, no meningeal signs. CARDIOVASCULAR: Regular rate and rhythm without murmurs, gallops, or rubs. RESPIRATORY: Clear to auscultation. Breath sounds equal bilaterally. No wheezes , rales, or rhonchi. GASTROINTESTINAL: Abdomen soft, non-tender, nondistended. No hepato-splenomegaly , or palpable masses. No guarding. MUSCULOSKELETAL: Extremities without clubbing, cyanosis, or edema. No joint tenderness, effusion, or edema noted. No calf tenderness. Negative Homans sign bilaterally. NEUROLOGICAL: Awake, alert, demented. Speaks very little. Follows simple commands. A/P Assessment and Plan (1) Syncope (2) Fall (3) Dehydration (4) UTI (urinary tract infection) (5) Acute renal insufficiency (6) Abnormal EKG (7) Head injury (8) Scalp laceration Plan 80-year-old female with history of dementia, atrial fibrillation, falls, previous subdural bleed secondary to fall, HTN. Pt. brought in by ambulance from home after she fell backwards, while she was standing. Syncope, unclear etiology, found dehydrated, UTI, abnormal EKG. -Continue with IVF -Continuous cardiac telemetry -2D echo showing ejection fraction of 40-45% -Continue antibiotics -caregiver told me her primary care doctor is Dr. Valle will consult -Orthostatics q shift UTI -Continue abx -follow urine cultures. Renal insufficiency poss. sec. dehydration -Continue IVF -BMP and CBC reviewed Dementia, hx of falls. -monitor -Fall precautions -PT eval and tx -CM to arrange HHC/PT CT findings of old infarcts -no ASA -check echo HTN, stable -Resume home meds Hx of afib -telemetry monitoring -2D echo reviewed -no anticoagulation recommended, hx of falls with previous brain bleed. Home medications reviewed, initiated as indicated SCDs for DVT prophylaxis Discussed with RN Discussed with caregiver Dea De Leon MD Nov 09, 2016 10:03
[2016-11-09] MEDS: FLUoxetine HCL 10 MG CAP PO SCH (10:18)
[2016-11-09] MEDS: MEMANTINE HCL 10 MG TAB PO SCH ×2 (10:18→20:34)
[2016-11-09] MEDS: CHOLECALCIFEROL (VIT D3) 1000 UNIT TAB PO SCH (10:19)
[2016-11-09] MEDS: LORATADINE 10 MG TAB PO SCH (10:19)
[2016-11-09] MEDS: VITAMIN E 400 UNIT CAP PO SCH (10:19)
[2016-11-09] MEDS: METOPROLOL TARTRATE 25 MG TAB PO SCH ×2 (10:19→20:36)
--- NOTE | 2016-11-09 15:30 | EKG ---
Date Performed: 11/08/2016 Time Performed: 10:26:41 PTAGE: 80 years EKG: Sinus rhythm WITH FIRST DEGREE AV BLOCK NONSPECIFIC ST & T-WAVE ABNORMALITY Sinus rhythm has replaced atrial fibr illation Persistant ST depression is more pronounced Clinical correlation is recommended ABNORMAL ECG PREVIOUS TRACING : 12/28/2015 12.40 DOCTOR: Marcin Tuttle Interpretating Date/Time 11/09/2016 15:28:47
--- NOTE | 2016-11-09 16:24 | MB ---
cc: MELE METZGER MD DATE OF CONSULTATION: 11/09/2016. REASON FOR CONSULTATION: Possible syncope. HISTORY OF PRESENT ILLNESS: The patient is a pleasant 80-year-old woman with significant dementia who was brought to the hospital for a fall. It is quite unclear about whether she actually had loss of consciousness as the patient is unable to provide any significant history. Apparently she has a caregiver who is not available at the moment. The patient was actually just wandering / lost in the hallway but was brought back by security. She says she is trying to go home. She says she is not having any symptoms but then when I list the full review of systems, she said she had "all of those". She does appear quite comfortable currently. PAST MEDICAL HISTORY: 1. Dementia. 2. Hypertension. 3. Atrial fibrillation apparently not on anticoagulation due to proven fall risk. 4. Prior intracranial bleed. CURRENT MEDICATIONS: 1. Ceftriaxone. 2. Prozac. 3. Claritin. 4. Namenda. 5. Lopressor 25 milligrams twice a day. ALLERGIES: 1. CONTRAST MEDIA. 2. SULFA. 3. TETANUS TOXOID. PHYSICAL EXAMINATION: VITAL SIGNS: Afebrile, pulse 89, respiratory rate 16, blood pressure 115/57, satting 95% on room air. GENERAL: A pleasant demented elderly woman in no distress. NECK: No jugular venous distention. LUNGS: Clear to auscultation bilaterally. CARDIOVASCULAR: Regular rate and rhythm. No murmurs appreciated. ABDOMEN: Benign. EXTREMITIES: No edema. LABORATORY DATA: Urine is indicative of a urinary tract infection. Sodium 144, potassium 3.8, chloride 109, bicarbonate 26.5, BUN 18, creatinine 0.84, glucose 87. Troponin negative x1. White count 6.3, hematocrit is 33.4, platelet count 142,000. IMAGING STUDIES: Head CT showed encephalomalacia consistent with old infarcts with chronic small-vessel ischemic changes and diffuse cerebral atrophy. CARDIOLOGY STUDIES: EKG shows sinus at 90 with diffuse S-T changes. Echocardiogram shows an ejection fraction of 40% to 45%. IMPRESSION: 1. Possible syncope. Whether or not the patient has actually had a true syncopal episode versus a loss of balance is quite suspect as the patient is not able to give any history. It is not clear if this was even currently witnessed. Her echocardiogram shows a reduced ejection fraction but no significant valvular disease. I think it is reasonable to watch her telemetry and obtain carotid Dopplers but given her advanced age and severe dementia, consider her a candidate for medical therapy only. Further recommendations will be based on her clinical course. Thank you again for the opportunity to participate in this patient's care. MD ELVIN Pendleton/GRETEL /3:48 PM /4:11 PM
[2016-11-09] MEDS: cefTRIAXone INJ 1,000 MG in SODIUM CHLORIDE 0.9% INJ 100 ML IV SCH (17:35)
--- NOTE | 2016-11-09 18:04 | RADRPT ---
EXAM DATE/TIME: 11/09/2016 17:20 [facility] COMPARISON: No previous studies available for comparison. INDICATIONS : Syncope. MEDICAL HISTORY : Alzheimer's Hypertension. Dementia. SURGICAL HISTORY : Hysterectomy. Appendectomy. Cholecystectomy. Left elbow surgery. ENCOUNTER: Initial ACUITY: 1 day PAIN SCORE: 0/10 LOCATION: Bilateral neck PEAK SYSTOLIC VELOCITIES (cm/sec): ICA/CCA RATIO: Right: 1.0 Left: 1.2 ICA: Right: 105 Left: 85 CCA: Right: 101 Left: 72 ECA: Right: 117 Left: 124 VERTEBRAL: Right: 65 antegrade Left: 45 antegrade Elevated flow velocities and ICA/CCA ratios have been found to correlate with increased degrees of vessel stenosis, calculated as percentage of diameter relative to a normal segment of distal ICA/CCA FINDINGS: RIGHT CAROTID: There is no evidence for a hemodynamically significant carotid stenosis. Minimal int imal hyperplasia is present with scattered calcific plaque. LEFT CAROTID: There is no evidence for a hemodynamically significant carotid stenosis. Minimal inti mal hyperplasia is present with scattered calcific plaque. VERTEBRAL ARTERIES: Flow is antegrade in both vertebral arteries. MISCELLANEOUS: There are no ancillary masses or adenopathy. CONCLUSION: Negative examination for a hemodynamically significant carotid stenosis. Sumit Cunningham MD FACR Board Certified Radiologist. This report was verified electronically.
[2016-11-10] VITALS (8 sets, daily range): BP systolic 109–166; BP diastolic 55–73; PULSE 91–101; RESP 20; TEMP 95.7–98.3; O2SAT 95–98
[2016-11-10] MEDS: SODIUM CHLOR 0.45% 1000 ML INJ 1,000 ML IV SCH ×2 (01:40→18:45)
[2016-11-10] MEDS ORDERED: POTASSIUM CHLORIDE 20 MEQ CONTROLLED RELEASE TAB PO ONE (03:45)
[2016-11-10] MEDS: SODIUM CHLORIDE 0.9% FLUSH 5 ML FLUSH FLUSH SCH ×2 (09:00→21:00)
--- NOTE | 2016-11-10 09:15 | HHI.PR ---
Subjective Remarks Patient is lying on the bed without any apparent distress. Offering no complaint. Confused pleasant Unreliable review of system Objective Objective Results - Vital Signs Date Time Temp Pulse Resp B/P Pulse Ox O2 Delivery O2 Flow Rate FiO2 11/10/16 07:06 98.2 91 20 152/70 97 11/10/16 04:26 97.6 94 20 146/66 97 11/09/16 23:25 98.5 95 20 132/60 95 11/09/16 21:45 18 11/09/16 21:39 75 11/09/16 19:58 97.6 102 20 134/63 97 138/66 139/64 11/09/16 12:48 97.4 89 16 115/57 95 I/O 11/09/16 11/09/16 11/09/16 11/10/16 11/10/16 11/10/16 07:00 15:00 23:00 07:00 15:00 23:00 Intake Total 837 ml 1500 ml Balance 837 ml 1500 ml Intake Oral 800 ml IV Total 837 ml 700 ml # Voids 1 1 1 Result Diagram: 11/09/16 0704 11/09/16 0704 Imaging Last Impressions Head CT 11/08/16 0000 Signed Impressions: Service Date/Time: Tuesday, November 08, 2016 11:00 - CONCLUSION: 1. 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 2. Moderate periventricular and subcortical white matter small vessel ischemic changes bilaterally. 3. Diffuse cerebral atrophy. 4. No acute hemorrhage, acute infarct, mass effect or extraaxial fluid collections. Adalid Castano MD Chest X-Ray 11/08/16 0000 Signed Impressions: Service Date/Time: Tuesday, November 08, 2016 10:40 - CONCLUSION: Stable chest with no acute disease Jamarcus Kovacs MD Cervical Spine CT 11/08/16 0000 Signed Impressions: Service Date/Time: Tuesday, November 08, 2016 11:00 - CONCLUSION: No acute disease. No evidence of fracture. Courtney Diaz MD Other Results Laboratory Tests Test 11/10/16 06:08 Magnesium Level 1.8 Date/Time Procedure Status Source Growth 11/08/16 10:30 Urine Culture - Final Complete Urine Catheterized Urine 50-100,000 CFU/ML MIXED GRAM POSITIVE... Physical Exam Physical Exam GENERAL: This is a well-nourished, well-developed patient, in no apparent distress. SKIN: No rashes, ecchymoses or lesions. Cool and dry. HEAD: Left posterior scalp with laceration, luke, tender to touch. Oozing blood. EYES: Pupils equal round and reactive. Extraocular motions intact. No scleral icterus. No injection or drainage. ENT: Nose without bleeding, purulent drainage. Throat without erythema, tonsillar hypertrophy or exudate. Uvula midline. Airway patent. NECK: Trachea midline. No JVD or lymphadenopathy. Supple, nontender, no meningeal signs. CARDIOVASCULAR: Regular rate and rhythm without murmurs, gallops, or rubs. RESPIRATORY: Clear to auscultation. Breath sounds equal bilaterally. No wheezes , rales, or rhonchi. GASTROINTESTINAL: Abdomen soft, tender in lower abdomen, nondistended. No hepato -splenomegaly, or palpable masses. No guarding. No rebound or rigidity MUSCULOSKELETAL: Extremities without clubbing, cyanosis, or edema. No joint tenderness, effusion, or edema noted. No calf tenderness. Negative Homans sign bilaterally. NEUROLOGICAL: Awake, alert, demented. Speaks very little. Follows simple commands. A/P Assessment and Plan (1) Syncope (2) Fall (3) Dehydration (4) UTI (urinary tract infection) (5) Acute renal insufficiency (6) Abnormal EKG (7) Head injury (8) Scalp laceration Plan 80-year-old female with history of dementia, atrial fibrillation, falls, previous subdural bleed secondary to fall, HTN. Pt. brought in by ambulance from home after she fell backwards, while she was standing. Syncope, unclear etiology, found dehydrated, UTI, abnormal EKG. -Continue with IVF -Continuous cardiac telemetry -2D echo showing ejection fraction of 40-45% -Continue antibiotics -Cardiology input appreciated -Orthostatics BP noted no significant change -Ultrasound of carotids did not show any significant stenosis UTI -Continue abx -follow urine cultures. Renal insufficiency poss. sec. dehydration -Continue IVF -BMP and CBC reviewed Dementia, hx of falls. -monitor -Fall precautions -PT eval and tx -CM to arrange HHC/PT CT findings of old infarcts -no ASA -check echo HTN, stable -Resume home meds Hx of afib -telemetry monitoring -2D echo reviewed -no anticoagulation recommended, hx of falls with previous brain bleed. Abdominal tenderness on palpation. -Plan for CT abdomen and pelvis. Home medications reviewed, initiated as indicated Continue physical therapy SCDs for DVT prophylaxis Discussed with RN Discussed with caregiver Left message for Gilma (her granddaughter and power of commercial real estate attorney as per caregiver) to call us back Some of the previous records reviewed. Total time spent in management of this patient more than 35 minutes Dea De Leon MD Nov 10, 2016 09:14
[2016-11-10] MEDS: MEMANTINE HCL 10 MG TAB PO SCH ×2 (09:56→21:48)
[2016-11-10] MEDS: FLUoxetine HCL 10 MG CAP PO SCH (09:56)
[2016-11-10] MEDS: LORATADINE 10 MG TAB PO SCH (09:56)
[2016-11-10] MEDS: VITAMIN E 400 UNIT CAP PO SCH (09:57)
[2016-11-10] MEDS: METOPROLOL TARTRATE 25 MG TAB PO SCH ×2 (09:57→21:48)
[2016-11-10] MEDS: CHOLECALCIFEROL (VIT D3) 1000 UNIT TAB PO SCH (09:57)
--- NOTE | 2016-11-10 12:58 | RADRPT ---
EXAM DATE/TIME: 11/10/2016 12:46 [facility] COMPARISON: No previous studies available for comparison. INDICATIONS : Diffuse abdominal pain. ORAL CONTRAST: No oral contrast ingested. RADIATION DOSE: 5.75 CTDIvol (mGy) MEDICAL HISTORY : Hypertension. SURGICAL HISTORY : None. ENCOUNTER: Initial ACUITY: 2 days PAIN SCALE: 3/10 LOCATION: abdomen/pelvis TECHNIQUE: Volumetric scanning of the abdomen and pelvis was performed. Using automated exposure control and ad justment of the mA and/or kV according to patient size, radiation dose was kept as low as reasonably achievable to obtain optimal diagnostic quality images. FINDINGS: LOWER LUNGS: The visualized lower lungs are clear. Small bilateral pleural effusions right greater left LIVER: Homogeneous density without lesion. There is no dilation of the biliary tree. Cholecystectomy clips. SPLEEN: Normal size without lesion. PANCREAS: Within normal limits. KIDNEYS: Normal in size and shape. There is no mass, stone, or hydronephrosis. ADRENAL GLANDS: Within normal limits. VASCULAR: There is no aortic aneurysm. BOWEL/MESENTERY: The stomach, small bowel, and colon demonstrate no acute abnormality. There is no free intraperitone al air or fluid. ABDOMINAL WALL: Within normal limits. RETROPERITONEUM: There is no lymphadenopathy. BLADDER: No wall thickening or mass. REPRODUCTIVE: Within normal limits. INGUINAL: There is no lymphadenopathy or hernia. MUSCULOSKELETAL: Within normal limits for patient age. CONCLUSION: Small bilateral pleural effusions. Intra-abdominal exam is unremarkable. Brant Ferrer MD on November 10, 2016 at 12:56 Board Certified Radiologist. This report was verified electronically.
[2016-11-10] MEDS: cefTRIAXone INJ 1,000 MG in SODIUM CHLORIDE 0.9% INJ 100 ML IV SCH (14:54)
--- NOTE | 2016-11-10 15:06 | PD.CARD.PN ---
Subjective Subjective Remarks No events, pt w/o complaints but confused. Objective Medications Administered Medications Medications (Trade) Dose Ordered Sig/Rolando Route PRN Reason Start Time Stop Time Status Last Admin Dose Admin Sodium Chloride (1/2 NS 1000 ml Inj) 1,000 ml @ 75 mls/hr [id number] IV 11/08/16 13:00 11/10/16 01:40 Acetaminophen 650 mg 650 mg Q4H PRN PO TEMP > 100.4 11/08/16 13:00 11/09/16 20:36 Ceftriaxone Sodium/Sodium Chloride (Rocephin Inj/NS Inj) 100 ml @ 200 mls/hr Q24H IV 11/09/16 13:00 11/09/16 17:35 Cholecalciferol (Vitamin D3) 1,000 units DAILY PO 11/09/16 09:00 11/10/16 09:57 Fluoxetine HCl (PROzac) 10 mg DAILY PO 11/09/16 09:00 11/10/16 09:56 Loratadine (Claritin) 10 mg DAILY PO 11/09/16 09:00 11/10/16 09:56 Memantine (Namenda) 10 mg BID PO 11/08/16 21:00 11/10/16 09:56 Metoprolol Tartrate (Lopressor) 25 mg BID PO 11/08/16 21:00 11/10/16 09:57 Vitamin E (Vitamin E) 400 units DAILY PO 11/09/16 09:00 11/10/16 09:57 Vital Signs / I&O Vital Signs Date Time Temp Pulse Resp B/P Pulse Ox O2 Delivery O2 Flow Rate FiO2 11/10/16 12:00 95.7 97 20 150/69 98 138/69 109/60 11/10/16 07:06 98.2 91 20 152/70 97 11/10/16 04:26 97.6 94 20 146/66 97 11/09/16 23:25 98.5 95 20 132/60 95 11/09/16 21:45 18 11/09/16 21:39 75 11/09/16 19:58 97.6 102 20 134/63 97 138/66 139/64 I/O 11/09/16 11/09/16 11/09/16 11/10/16 11/10/16 11/10/16 07:00 15:00 23:00 07:00 15:00 23:00 Intake Total 837 ml 1500 ml Balance 837 ml 1500 ml Intake Oral 800 ml IV Total 837 ml 700 ml # Voids 1 1 1 Physical Exam GENERAL: This is a well-nourished, well-developed patient, in no apparent distress. CARDIOVASCULAR: Regular rate and rhythm without murmurs, gallops, or rubs. RESPIRATORY: Clear to auscultation. Breath sounds equal bilaterally. No wheezes , rales, or rhonchi. GASTROINTESTINAL: Abdomen soft, non-tender, nondistended. Normal active bowel sounds MUSCULOSKELETAL: Extremities without clubbing, cyanosis, or edema. NEURO: disoriented Laboratory Laboratory Tests Test 11/10/16 06:08 Magnesium Level 1.8 MG/DL Imaging Last Impressions Carotid Artery Ultrasound 11/09/16 0000 Signed Impressions: Service Date/Time: Wednesday, November 09, 2016 17:20 - CONCLUSION: Negative examination for a hemodynamically significant carotid stenosis. Sumit Cunningham MD Head CT 11/08/16 0000 Signed Impressions: Service Date/Time: Tuesday, November 08, 2016 11:00 - CONCLUSION: 1. 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 2. Moderate periventricular and subcortical white matter small vessel ischemic changes bilaterally. 3. Diffuse cerebral atrophy. 4. No acute hemorrhage, acute infarct, mass effect or extraaxial fluid collections. Adalid Castano MD Chest X-Ray 11/08/16 0000 Signed Impressions: Service Date/Time: Tuesday, November 08, 2016 10:40 - CONCLUSION: Stable chest with no acute disease Jamarcus Kovacs MD Cervical Spine CT 11/08/16 0000 Signed Impressions: Service Date/Time: Tuesday, November 08, 2016 11:00 - CONCLUSION: No acute disease. No evidence of fracture. Courtney Diaz MD Assessment and Plan Problem List: (1) Syncope Assessment and Plan: Likely due to UTI but nsvt also seen on tele; discussed at length with the patient's grandaugter who make medical decisions; she wants only medical/conservative therapy, will continue metoprolol. (2) NSVT (nonsustained ventricular tachycardia) Assessment and Plan: see above (3) Dementia Assessment and Plan Ok to d/c home from cardiac standpoint. Problem Qualifiers (1) Syncope: Qualified Code: R55 - Syncope, unspecified syncope type Mango Watson MD Nov 10, 2016 15:06
[2016-11-10] MEDS: ACETAMINOPHEN 325 MG TAB PO PRN (18:42)
[2016-11-11 04:26] VITALS: BP 139/61; PULSE 90; RESP 20; TEMP 98.6; O2SAT 96
[2016-11-11 07:34] VITALS: BP 147/66; PULSE 85; RESP 17; TEMP 97.7; O2SAT 96
[2016-11-11] MEDS: SODIUM CHLORIDE 0.9% FLUSH 5 ML FLUSH FLUSH SCH (08:00)
--- NOTE | 2016-11-11 08:31 | HHI.PR ---
Subjective Remarks demented, oriented to self has no complaints no fever caregiver at [facility] telemetry-SR, no ectopy Objective Objective Results - Vital Signs Date Time Temp Pulse Resp B/P Pulse Ox O2 Delivery O2 Flow Rate FiO2 11/11/16 07:34 97.7 85 17 147/66 96 11/11/16 04:26 98.6 90 20 139/61 96 11/10/16 23:47 98.3 95 20 119/55 95 11/10/16 21:53 101 11/10/16 19:42 20 11/10/16 19:16 97.6 100 20 166/73 97 11/10/16 16:00 97.7 99 20 165/62 97 11/10/16 12:00 95.7 97 20 150/69 98 138/69 109/60 I/O 11/10/16 11/10/16 11/10/16 11/11/16 11/11/16 11/11/16 07:00 15:00 23:00 07:00 15:00 23:00 Intake Total 1250 ml Balance 1250 ml Intake Oral 500 ml IV Total 750 ml # Voids 1 3 2 # Bowel Movements 0 Result Diagram: 11/09/16 0704 11/09/16 0704 Imaging Last Impressions Head CT 11/08/16 0000 Signed Impressions: Service Date/Time: Tuesday, November 08, 2016 11:00 - CONCLUSION: 1. 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 2. Moderate periventricular and subcortical white matter small vessel ischemic changes bilaterally. 3. Diffuse cerebral atrophy. 4. No acute hemorrhage, acute infarct, mass effect or extraaxial fluid collections. Adalid Castano MD Chest X-Ray 11/08/16 0000 Signed Impressions: Service Date/Time: Tuesday, November 08, 2016 10:40 - CONCLUSION: Stable chest with no acute disease Jamarcus Kovacs MD Cervical Spine CT 11/08/16 0000 Signed Impressions: Service Date/Time: Tuesday, November 08, 2016 11:00 - CONCLUSION: No acute disease. No evidence of fracture. Courtney Diaz MD Other Results Date/Time Procedure Status Source Growth 11/08/16 10:30 Urine Culture - Final Complete Urine Catheterized Urine 50-100,000 CFU/ML MIXED GRAM POSITIVE... ROS General: Other (demented, unable to provide ROS) Physical Exam Physical Exam GENERAL: This is a well-nourished, well-developed patient, in no apparent distress. SKIN: No rashes, ecchymoses or lesions. Cool and dry. HEAD: Left posterior scalp with laceration, sutured, tender to touch. Oozing blood. EYES: Pupils equal round and reactive. Extraocular motions intact. No scleral icterus. No injection or drainage. ENT: Nose without bleeding, purulent drainage or septal hematoma. Throat without erythema, tonsillar hypertrophy or exudate. Uvula midline. Airway patent. NECK: Trachea midline. No JVD or lymphadenopathy. Supple, nontender, no meningeal signs. CARDIOVASCULAR: Regular rate and rhythm without murmurs, gallops, or rubs. RESPIRATORY: Clear to auscultation. Breath sounds equal bilaterally. No wheezes , rales, or rhonchi. GASTROINTESTINAL: Abdomen soft, non-tender, nondistended. No hepato-splenomegaly , or palpable masses. No guarding. MUSCULOSKELETAL: Extremities without clubbing, cyanosis, or edema. No joint tenderness, effusion, or edema noted. No calf tenderness. Negative Homans sign bilaterally. NEUROLOGICAL: Awake, alert, demented. Speaks very little. Follows simple commands. Urinary Catheter: No Vascular Central Line Catheter: No A/P Diagnosis: (1) Syncope (2) Fall (3) Dehydration (4) UTI (urinary tract infection) (5) Acute renal insufficiency (6) Abnormal EKG (7) Head injury (8) Scalp laceration Assessment and Plan 80-year-old female with history of dementia, atrial fibrillation, falls, previous subdural bleed secondary to fall, HTN. Pt. brought in by ambulance from home after she fell backwards, while she was standing. Syncope, unclear etiology, found dehydrated, UTI, abnormal EKG. -D/C IVF -Continuous cardiac telemetry -2D echo showing ejection fraction of 40-45% -Continue antibiotics -Cardiology input appreciated, cleared for discharge -Orthostatics BP noted no significant change -Ultrasound of carotids did not show any significant stenosis UTI -Continue abx -follow urine cultures.-mixed, GPC, poss. contaminant Renal insufficiency poss. sec. dehydration-resolved -DC IVF Dementia, hx of falls. -monitor -Fall precautions -PT eval and tx -CM to arrange HHC/PT CT findings of old infarcts -no ASA -echo done, CUS done, results noted HTN, stable -continue home meds Hx of afib -telemetry monitoring -2D echo reviewed -no anticoagulation recommended, hx of falls with previous brain bleed. Abdominal tenderness on palpation. -CT abdomen and pelvis, no acute findings -no abd. pain today Continue physical therapy SCDs for DVT prophylaxis Overall improved, cleared for discharge CM to arrange HHC/PT, caregiver requesting bed. Will order F/U cardiology, PCP Diet-heart healthy Activity-as tolerated, fall precautions D/W RN D/W pt's caregiver D/W Dr. De Leon This patient was seen by myself and Dr. De Leon, this H/P is written on his behalf. Problem Qualifiers (1) Syncope: Qualified Code: R55 - Syncope, unspecified syncope type (2) Fall: Qualified Code: W19.XXXA - Fall, initial encounter (3) UTI (urinary tract infection): Qualified Code: N39.0 - Urinary tract infection without hematuria, site unspecified (4) Head injury: Qualified Code: S09.90XA - Head injury, initial encounter (5) Scalp laceration: Qualified Code: S01.01XA - Scalp laceration, initial encounter Jacqui Frederick Nov 11, 2016 08:31
[2016-11-11] MEDS ORDERED: HOSP BED2 (08:39)
[2016-11-11] MEDS: MEMANTINE HCL 10 MG TAB PO SCH (09:32)
[2016-11-11] MEDS: METOPROLOL TARTRATE 25 MG TAB PO SCH (09:32)
[2016-11-11] MEDS: FLUoxetine HCL 10 MG CAP PO SCH (09:32)
[2016-11-11] MEDS: LORATADINE 10 MG TAB PO SCH (09:32)
[2016-11-11] MEDS: VITAMIN E 400 UNIT CAP PO SCH (09:32)
[2016-11-11] MEDS: CHOLECALCIFEROL (VIT D3) 1000 UNIT TAB PO SCH (09:32)
--- NOTE | 2016-11-11 09:39 | HHI.DS ---
Discharge Summary Admission Date Nov 08, 2016 at 12:32 Discharge Date: Nov 11, 2016 Admitting Diagnosis syncope, abnormal EKG, head injury, scalp laceration, FERMIN (1) Syncope (2) Fall (3) Dehydration (4) UTI (urinary tract infection) (5) Acute renal insufficiency (6) Abnormal EKG (7) Head injury (8) Scalp laceration CBC/BMP: 11/09/16 0704 11/09/16 0704 Significant Findings Laboratory Tests Test 11/08/16 11/09/16 10:30 07:04 Red Blood Count 3.95 MIL/MM3 3.66 MIL/MM3 (4.00-5.30) (4.00-5.30) Monocytes (%) (Auto) 9.9 % (0.0-8.0) 10.8 % (0.0-8.0) Eosinophils (%) (Auto) 4.2 % (0.0-4.0) Activated Partial 23.1 SEC Thromboplast Time (24.3-30.1) Urine Turbidity HAZY (CLEAR) Urine Nitrite POS (NEG) Urine Leukocyte Esterase TRACE (NEG) Urine Bacteria OCC /hpf (NONE) Urine Mucus FEW /lpf (OCC) Chloride Level 109 MEQ/L 109 MEQ/L (98-107) (98-107) Anion Gap 4 MEQ/L (5-15) Blood Urea Nitrogen 21 MG/DL (7-18) Creatinine 1.39 MG/DL (0.50-1.00) Estimat Glomerular Filtration 36 ML/MIN (>89) 65 ML/MIN (>89) Rate Random Glucose 116 MG/DL (74-106) Troponin I LESS THAN 0.02 NG/ML (0.02-0.05) Hemoglobin 11.3 GM/DL (11.6-15.3) Hematocrit 33.4 % (35.0-46.0) Platelet Count 142 TH/MM3 (150-450) Imaging Last Impressions Abdomen/Pelvis CT 11/10/16 0000 Signed Impressions: Service Date/Time: Thursday, November 10, 2016 12:46 - CONCLUSION: Small bilateral pleural effusions. Intra-abdominal exam is unremarkable. Brant Ferrer MD Carotid Artery Ultrasound 11/09/16 0000 Signed Impressions: Service Date/Time: Wednesday, November 09, 2016 17:20 - CONCLUSION: Negative examination for a hemodynamically significant carotid stenosis. Sumit Cunningham MD Head CT 11/08/16 0000 Signed Impressions: Service Date/Time: Tuesday, November 08, 2016 11:00 - CONCLUSION: 1. 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 2. Moderate periventricular and subcortical white matter small vessel ischemic changes bilaterally. 3. Diffuse cerebral atrophy. 4. No acute hemorrhage, acute infarct, mass effect or extraaxial fluid collections. Adalid Castano MD Chest X-Ray 11/08/16 Signed Impressions: Service Date/Time: Tuesday, November 08, 2016 10:40 - CONCLUSION: Stable chest with no acute disease Jamarcus Kovacs MD Cervical Spine CT 11/08/16 0000 Signed Impressions: Service Date/Time: Tuesday, November 08, 2016 11:00 - CONCLUSION: No acute disease. No evidence of fracture. Courtney Diaz MD Hospital Course This is an 80-year-old female with history of dementia, atrial fibrillation, falls, previous subdural bleed secondary to fall, HTN. Pt. brought in by ambulance from home for evaluation of head injury after fall. Pt. not on any blood thinners, no ASA. Pt. has caregivers due to dementia. I spoke to caregiver as pt. is not able to provide any details. Caregiver indicates pt. was standing at kitchen counter fixing a bowl of food for the cat, when she noted the patient falling backwards. Legs did not buckle, pt. just went down. It is not clear if pt had preceding symptoms. Pt. was awake, complained of head pain. She was brought to ED, was found with laceration which was sutured. Laboratory work up remarkable for renal insufficiency BUN/Creat 21/1.34, no WBC elevation. UA positive for UTI. Caregiver endorses pt. has been more sleepy than usual, no reported fever, chills, cough, sputum production. She is incontinent of urine. She has noted that pt. appears more unsteady, doesn't use assistive devices. CT of head was done with results old infarcts. No acute findings. CXR stable. Cervical spine CT was noted without any acute injuries. Last Impressions Head CT 11/08/16 0000 Signed Impressions: Service Date/Time: Tuesday, November 08, 2016 11:00 - CONCLUSION: 1. 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 2. Moderate periventricular and subcortical white matter small vessel ischemic changes bilaterally. 3. Diffuse cerebral atrophy. 4. No acute hemorrhage, acute infarct, mass effect or extraaxial fluid collections. Adalid Castano MD Chest X-Ray 11/08/16 0000 Signed Impressions: Service Date/Time: Tuesday, November 08, 2016 10:40 - CONCLUSION: Stable chest with no acute disease Jamarcus Kovacs MD Cervical Spine CT 11/08/16 0000 Signed Impressions: Service Date/Time: Tuesday, November 08, 2016 11:00 - CONCLUSION: No acute disease. No evidence of fracture. Courtney Diaz MD Pt. was given IVF, started on antibiotics. EKG was reviewed by ED physician, Sinus, rate 90, normal axis, normal intervals, ST depressions in inferior and lateral leads. 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 She can't recall name and will RN to provide name. As indicated above, prior history of afib, none noted. She has been evaluated by Dr. Valle in 2006 when she had a cardiac cath, which was clear. Dr. Mcwilliams saw her in 2016 when she was admitted for the fall with subdural bleed for afib with RVR. She was put on BB and recommended against anticoagulation on account of frequent falls and bleed. Pt. is examined in the ED, caregiver is at d. She is resting comfortably, oriented to self only. No focal deficits. Pt. was admitted for further evaluation and treatment. (1) Syncope (2) Fall (3) Dehydration (4) UTI (urinary tract infection) (5) Acute renal insufficiency (6) Abnormal EKG (7) Head injury (8) Scalp laceration Assessment and Plan 80-year-old female with history of dementia, atrial fibrillation, falls, previous subdural bleed secondary to fall, HTN. Pt. brought in by ambulance from home after she fell backwards, while she was standing. Syncope, unclear etiology, found dehydrated, UTI, abnormal EKG. -Put on IVF -Continuous cardiac telemetry -2D echo showing ejection fraction of 40-45% -Continued antibiotics -Cardiology input appreciated. Evaluated by cardiology, NSVT, recommend to continue BB, likely cause of syncope was UTI -Orthostatics BP noted no significant change -Ultrasound of carotids did not show any significant stenosis UTI -put in IV abx -followed urine cultures - poss contaminant Renal insufficiency poss. sec. dehydration-improved -Given IVF -BMP and CBC reviewed Dementia, hx of falls. -monitored closely -Fall precautions -PT eval and tx -CM arranged HHC/PT CT findings of old infarcts -no ASA -Echo done, EF 40-45% HTN, stable -continued on home meds Hx of afib -telemetry monitoring -2D echo reviewed -no anticoagulation recommended, hx of falls with previous brain bleed. Abdominal tenderness on palpation. -Plan for CT abdomen and pelvis. Home medications reviewed, initiated as indicated ordered physical therapy SCDs for DVT prophylaxis Overall improved, cleared for discharge CM to arrange HHC/PT, caregiver requesting bed. Will order F/U cardiology, PCP Diet-heart healthy Activity-as tolerated, fall precautions Discharged home in stable condition. Pt Condition on Discharge: Stable Discharge Disposition: Disch w/ Home Health Serv Discharge Instructions DIET: Follow Instructions for: Heart Healthy Diet Activities you can perform: Weight Bearing as Addie Other Activity Instructions: fall precautions enc. to use walker Follow up Referrals: PCP Follow-up New Medications: Hospital Bed - Manual (Hospital Bed - Manual) 1 Ea Ea 1 EA .ROUTE DIRECTED #1 EA Continued Medications: Artificial Tear Solution Opth Drops (Sm Artificial Tears Opth Drops) 1 Drops 1 DROP EACH EYE BID Dry Eye Cholecalciferol (Vitamin D-1000) 1,000 Unit Tab 1000 UNITS PO DAILY Nutritional Supplement #1 Ref 0 BOTTLE Fluoxetine (Fluoxetine) 10 Mg Cap 10 MG PO DAILY #30 Ref 0 CAP Loratadine (Loratadine) 10 Mg Tab 10 MG PO DAILY Allergy Management Ref 0 TAB Memantine (Namenda) 10 Mg Tab 10 MG PO BID Alzheimer Disease #30 Ref 0 TAB Metoprolol Tartrate (Metoprolol Tartrate) 25 Mg Tab 25 MG PO BID #60 Ref 0 TAB Multiple Vitamins W/ Minerals (Centrum) 1 Tab 1 TAB PO DAILY Nutritional Supplement Ref 0 TAB Vitamin E (Alph-E) 400 Unit Cap 400 UNITS PO DAILY Jacqui Frederick Nov 11, 2016 09:39
[2016-11-11] MEDS ORDERED: WALKER WHEELS/F1 MIS (10:48)
[2016-11-11] MEDS ORDERED: COMMODE 3-IN-11 MIS (11:01)
[2016-11-11] MEDS ORDERED: HOSP BED1 (11:17)
[2016-11-11] MEDS: cefTRIAXone INJ 1,000 MG in SODIUM CHLORIDE 0.9% INJ 100 ML IV SCH (13:00)
[2016-11-11 13:36] VITALS: BP 150/70; PULSE 83; RESP 17; O2SAT 95
== END 2016-11-11 16:45 | disposition home or self-care (01) ==
LOC: NEPC 11:15 → NEDA 12:32 → NEPHCDU 16:08
PROVIDERS: ADMIT Specialist; ATTEND Specialist
DX: R55 Syncope and collapse (principal); S01.01XA Laceration without foreign body of scalp, initial encounter; E86.0 Dehydration; N39.0 Urinary tract infection, site not specified; I48.0 Paroxysmal atrial fibrillation; F02.80 Dementia in other diseases classified elsewhere, unspecified severity, without behavioral disturbance, psychotic disturbance, mood disturbance, and anxiety; G30.9 Alzheimer's disease, unspecified; I10 Essential (primary) hypertension; G93.89 Other specified disorders of brain; I47.2 Ventricular tachycardia; N17.9 Acute kidney failure, unspecified; K58.9 Irritable bowel syndrome, unspecified; Z91.81 History of falling; W19.XXXA Unspecified fall, initial encounter
CPT/HCPCS: 12001; 70450; 71010; 72125; 74176; 80048; 81001; 82550; 83735; 84484; 85025; 85610; 85730; 87086; 93005; 93306; 93880; 96365; 96375; 97110; 97116; 97163; 99285; G0378; G8987; G8988; J0696; J2270; J7030; P9612

== ENCOUNTER 2017-03-15 07:34 | Emergency (ER) | payer MEDICARE, BC ==
[~2017-03-15] VITALS: Ht 157.5 cm; Wt 60.0 kg
[~2017-03-15 07:34] MED LIST changes: +ALPH400C2 PO; -CALC625 PO; -CENTTAB9 PO; -CHOL1CAP6 PO; -CHOL4 PO; -CLAR10TA7 PO; +COMMODE 3-IN-11 MIS; -DONE5TAB14 PO; +FLUO10CA5 PO; -FLUO10TA PO; +HOSP BED1; +LORA10TA PO; -METO25 PO; +METO25TA3 PO; +MULT-6 PO; -POTA20PA PO; +VITA1000 PO; -VITA60003; +WALKER WHEELS/F1 MIS; +[UNRECOGNIZED DRUG - OTHER] EACH EYE
[2017-03-15 07:35] VITALS: BP 193/78; PULSE 76; RESP 16; TEMP 98; O2SAT 98
[2017-03-15] MEDS ORDERED: SODIUM CHLORIDE 0.9% FLUSH 10 ML FLUSH IVF PRN (07:45)
--- NOTE | 2017-03-15 07:49 | PD ---
HPI Chief Complaint: Fall Time Seen by Provider: 07:43 Travel History International Travel<30 days: No Contact w/Intl Traveler<30days: No History of Present Illness HPI Patient is a 81-year-old female with history of dementia who presents emergency department after fall. History is obtained per EMS as patient is a poor historian with baseline dementia. Apparently she was at home with caregiver. Caregiver instructed patient to sit, all while she finished a task, and then they were in a feed patient's Together. Caregiver stepped away from patient for only 10-15 seconds and turned around and heard a side ache, patient had gotten up and had fallen. She does have a history of frequent falls that the fall was not technically witnessed. There was no LOC, caregiver states she turned around and never saw patient lose consciousness. She did have a laceration to the back of the head that was bandaged per EMS. Per medication list, patient is not anticoagulated. Patient denied any complaints en route. Per caregiver, patient at baseline mental status. PFSH Past Medical History Alzheimer's Disease: Yes Blood Disorders: No Heart Rhythm Problems: No Cancer: No Cardiovascular Problems: Yes High Cholesterol: No Chest Pain: No Congestive Heart Failure: No Dementia: Yes Diminished Hearing: No Endocrine: No Genitourinary: No Hypertension: Yes Immune Disorder: No Musculoskeletal: No Neurologic: Yes (dementia. alzhemiers) Psychiatric: No Reproductive: No Respiratory: No Immunizations Current: Yes Menopausal: Yes Past Surgical History Appendectomy: Yes Cholecystectomy: Yes Hysterectomy: Yes Other Surgery: Yes Social History Alcohol Use: No Tobacco Use: No Substance Use: No Allergies-Medications (Allergen,Severity, Reaction): Coded Allergies: Contrast Media (Verified Allergy, Mild, 12/28/15) Sulfa (Verified Allergy, Mild, 12/28/15) Tetanus Toxoid (Verified Allergy, Mild, 12/28/15) Reported Meds & Prescriptions Reported Meds & Active Scripts Active Hospital Bed - Electric 1 Ea Ea 1 Ea .ROUTE DIRECTED Commode 3-in-1 (Device) 1 Mis Mis 1 Ea .ROUTE DIRECTED Walker with Front Wheels (Device) 1 Mis Mis 1 Ea .ROUTE DIRECTED Reported Risperidone 0.5 Mg Tab 0.5 Mg PO HS Donepezil 10 Mg Tab 10 Mg PO HS Loratadine 10 Mg Tab 10 Mg PO DAILY Namenda (Memantine) 10 Mg Tab 10 Mg PO BID Fluoxetine (Fluoxetine HCl) 10 Mg Cap 10 Mg PO DAILY Vitamin D-1000 (Cholecalciferol) 1,000 Unit Tab 1,000 Units PO DAILY Metoprolol Tartrate 25 Mg Tab 25 Mg PO BID Centrum (Multiple Vitamins W/ Minerals) 1 Tab 1 Tab PO DAILY Sm Artificial Tears Opth Drops (Artificial Tear Solution Opth Drops) 1 Drops 1 Drop EACH EYE BID Alph-E (Vitamin E) 400 Unit Cap 400 Units PO DAILY Review of Systems ROS Limitations: Poor Historian Physical Exam Exam Limitations: Poor Historian Narrative GENERAL: Elderly female in no acute distress SKIN: Focused skin assessment warm/dry. HEAD: Dried matted blood in here to the back of the head, no obvious laceration visualized at this time. Normocephalic. EYES: Pupils equal and round. 2 mm and sluggish. No scleral icterus. No injection or drainage. ENT: No nasal bleeding or discharge. Mucous membranes pink and moist. NECK: Supple, no midline tenderness palpation. Cervical collar in place. CARDIOVASCULAR: Regular rate and rhythm. No murmur appreciated. RESPIRATORY: No accessory muscle use. Clear to auscultation. Breath sounds equal bilaterally. GASTROINTESTINAL: Abdomen soft, non-tender, nondistended. MUSCULOSKELETAL: No midline tenderness to palpation of the thoracic or lumbar spine. Pelvis is stable to AP and lateral compression. No obvious deformities. No clubbing. No cyanosis. No edema. NEUROLOGICAL: Awake and alert to person, no she is in a hospital but does not know which one. Not oriented to time. Baseline mental status per caregiver. No obvious cranial nerve deficits. Motor grossly within normal limits. Normal speech. PSYCHIATRIC: Deferred given mental status Data Data Last Documented VS Vital Signs Date Time Temp Pulse Resp B/P Pulse Ox O2 Delivery O2 Flow Rate FiO2 03/15/17 07:35 16 98 Room Air 03/15/17 07:35 78 03/15/17 07:35 98.0 193/78 Orders Electrocardiogram (03/15/17 07:43) Basic Metabolic Panel (Bmp) (03/15/17 07:43) Complete Blood Count With Diff (03/15/17 07:43) Ct Brain W/O Iv Contrast(Rout) (03/15/17 07:43) Ct Cerv Spine W/O Contrast (03/15/17 07:43) Ecg Monitoring (03/15/17 07:43) Iv Access Insert/Monitor (03/15/17 07:43) Oximetry (03/15/17 07:43) Sodium Chloride 0.9% Flush (Ns Flush) (03/15/17 07:45) Labs Laboratory Tests Test 03/15/17 07:45 White Blood Count 6.9 TH/MM3 Red Blood Count 3.92 MIL/MM3 Hemoglobin 11.8 GM/DL Hematocrit 36.4 % Mean Corpuscular Volume 92.7 FL Mean Corpuscular Hemoglobin 30.0 PG Mean Corpuscular Hemoglobin 32.3 % Concent Red Cell Distribution Width 14.7 % Platelet Count 167 TH/MM3 Mean Platelet Volume 7.1 FL Neutrophils (%) (Auto) 47.6 % Lymphocytes (%) (Auto) 39.3 % Monocytes (%) (Auto) 9.3 % Eosinophils (%) (Auto) 3.0 % Basophils (%) (Auto) 0.8 % Neutrophils # (Auto) 3.3 TH/MM3 Lymphocytes # (Auto) 2.7 TH/MM3 Monocytes # (Auto) 0.6 TH/MM3 Eosinophils # (Auto) 0.2 TH/MM3 Basophils # (Auto) 0.1 TH/MM3 CBC Comment DIFF FINAL Differential Comment Sodium Level 145 MEQ/L Potassium Level 3.8 MEQ/L Chloride Level 110 MEQ/L Carbon Dioxide Level 26.4 MEQ/L Anion Gap 9 MEQ/L Blood Urea Nitrogen 13 MG/DL Creatinine 0.91 MG/DL Estimat Glomerular Filtration 59 ML/MIN Rate Random Glucose 101 MG/DL Calcium Level 8.8 MG/DL MDM Medical Decision Making Medical Screen Exam Complete: Yes Emergency Medical Condition: Yes Medical Record Reviewed: Yes Differential Diagnosis 81-year-old female here with scalp laceration after fall. Differential includes mechanical fall, syncope, arrhythmia, electrolyte abnormality, closed head injury, skull fracture, ICH, symptomatic anemia, electrolyte abnormality, scalp laceration. Narrative Course Patient placed on monitor, IV established and blood obtained. Twelve-lead EKG showed sinus rhythm without notable ST abnormalities, normal intervals. CBC, BMP unremarkable. CT of the brain and cervical spine showed acute changes only. Laceration repaired. Patient will be discharged to home. Diagnosis Primary Impression: Scalp laceration Qualified Code: S01.01XA - Scalp laceration, initial encounter Additional Impression: Fall Qualified Code: W19.XXXA - Fall, initial encounter Referrals: Primary Care Physician 1 week Additional Instructions: Staple removal in 7-10 days Med/Other Pt SpecificInfo: No Change to Meds Disposition: 01 DISCHARGE HOME Condition: Stable Michelle Sánchez MD March 15, 2017 07:49
[2017-03-15] MEDS ORDERED: RISP0.5T2 PO (08:02)
[2017-03-15] MEDS ORDERED: DONE10TA7 PO (08:02)
[2017-03-15 08:03] LABS: AUTOMATED NEUTROPHIL # 3.3 TH/MM3 (1.8-7.7); BASOPHIL # 0.1 TH/MM3 (0-0.2); BASOPHIL % 0.8 % (0.0-2.0); EOSINOPHIL # 0.2 TH/MM3 (0-0.4); HEMATOCRIT 36.4 % (35.0-46.0); HEMO FLAGS DIFF FINAL; LYMPH % 39.3 % (9.0-44.0); LYMPHOCYTE # 2.7 TH/MM3 (1.0-4.8); MEAN CELL VOLUME 92.7 FL (80.0-100.0); MEAN CORPUSCULAR HGB CONC 32.3 % (32.0-36.0); MONO % 9.3 % (0.0-8.0); NEUT % 47.6 % (16.0-70.0); PLATELET COUNT 167 TH/MM3 (150-450); RED BLOOD COUNT 3.92 MIL/MM3 (4.00-5.30); RED CELL DISTRIBUTION WIDTH 14.7 % (11.6-17.2); WHITE BLOOD COUNT 6.9 TH/MM3 (4.0-11.0)
[2017-03-15 08:14] LABS: BICARBONATE 26.4 MEQ/L (21.0-32.0); POTASSIUM 3.8 MEQ/L (3.5-5.1)
--- NOTE | 2017-03-15 09:08 | RADRPT ---
EXAM DATE/TIME: 03/15/2017 08:15 [facility] COMPARISON: CT BRAIN W/O CONTRAST, November 08, 2016, 11:00. INDICATIONS : Fall today, cephalgia and neck pain. RADIATION DOSE: 30.37 CTDIvol (mGy) MEDICAL HISTORY : Alzheimer's Dementia. SURGICAL HISTORY : None. ENCOUNTER: Initial ACUITY: 1 day PAIN SCALE: 5/10 LOCATION: Bilateral head TECHNIQUE: Multiple contiguous axial images were obtained of the head. Using automated exposure control and adj ustment of the mA and/or kV according to patient size, radiation dose was kept as low as reasonably a chievable to obtain optimal diagnostic quality images. FINDINGS: CEREBRUM: Chronic bilateral encephalomalacia again seen in unchanged indicating old insults. No evidence of acu te intracranial hemorrhage, mass lesion, or infarct. POSTERIOR FOSSA: The cerebellum and brainstem are intact. The 4th ventricle is midline. The cerebellopontine angle i s unremarkable. EXTRACRANIAL: The visualized portion of the orbits is intact. SKULL: The calvaria is intact. No evidence of skull fracture. CONCLUSION: Bilateral chronic encephalomalacia unchanged. No acute intracranial findings. Gaetano Becerril MD on March 15, 2017 at 9:05 Board Certified Radiologist. This report was verified electronically.
--- NOTE | 2017-03-15 09:16 | RADRPT ---
EXAM DATE/TIME: 03/15/2017 08:15 [facility] COMPARISON: CT CERVICAL SPINE W/O CONTRAST, November 08, 2016, 11:00. INDICATIONS : Fall today, cephalgia and neck pain. RADIATION DOSE: 21.86 CTDIvol (mGy) MEDICAL HISTORY : Alzheimer's Dementia. SURGICAL HISTORY : None. ENCOUNTER: Initial ACUITY: 1 day PAIN SCALE: 5/10 LOCATION: Bilateral neck TECHNIQUE: Volumetric scanning of the cervical spine was performed. Multiplanar reconstructions in the sagittal, coronal and oblique axial planes were performed. Using automated exposure control and adjustment o f the mA and/or kV according to patient size, radiation dose was kept as low as reasonably achievable to obtain optimal diagnostic quality images. FINDINGS: VERTEBRAE: Normal vertebral body height. ALIGNMENT: 2 mm anterolisthesis C4 on C5. Multilevel degenerative findings again seen. No significant interval change from 11/08/2016. No focal disc protrusion identified. Central canal diameter within normal limits. Moderate right neural forami nal narrowing is seen at C3-4 and C4-5. CONCLUSION: No evidence of fracture. No significant interval change in degenerative findings. Gaetano Becerril MD on March 15, 2017 at 9:07 Board Certified Radiologist. This report was verified electronically.
[2017-03-15 09:30] VITALS: BP 146/76; PULSE 85; RESP 18; O2SAT 95
[2017-03-15] MEDS ORDERED: LIDOCAINE 1%/EPINEPHrine 1:100,000 SOLN 20 ML VIAL INFIL ONE (09:30)
--- NOTE | 2017-03-15 09:34 | PD ---
Physical Exam Date Seen by Provider: March 15, 2017 Time Seen by Provider: 09:31 Narrative I was asked by Dr. Sánchez to perform laceration repair to the scalp. Please see her note for full details of HPI. Data Data Last Documented VS Vital Signs Date Time Temp Pulse Resp B/P Pulse Ox O2 Delivery O2 Flow Rate FiO2 03/15/17 07:35 16 98 Room Air 03/15/17 07:35 78 03/15/17 07:35 98.0 193/78 Orders Electrocardiogram (03/15/17 07:43) Basic Metabolic Panel (Bmp) (03/15/17 07:43) Complete Blood Count With Diff (03/15/17 07:43) Ct Brain W/O Iv Contrast(Rout) (03/15/17 07:43) Ct Cerv Spine W/O Contrast (03/15/17 07:43) Ecg Monitoring (03/15/17 07:43) Iv Access Insert/Monitor (03/15/17 07:43) Oximetry (03/15/17 07:43) Sodium Chloride 0.9% Flush (Ns Flush) (03/15/17 07:45) Lidocai-Epi 1%-1:100,000 Inj (Xylocaine- (03/15/17 09:30) Labs Laboratory Tests Test 03/15/17 07:45 White Blood Count 6.9 TH/MM3 Red Blood Count 3.92 MIL/MM3 Hemoglobin 11.8 GM/DL Hematocrit 36.4 % Mean Corpuscular Volume 92.7 FL Mean Corpuscular Hemoglobin 30.0 PG Mean Corpuscular Hemoglobin 32.3 % Concent Red Cell Distribution Width 14.7 % Platelet Count 167 TH/MM3 Mean Platelet Volume 7.1 FL Neutrophils (%) (Auto) 47.6 % Lymphocytes (%) (Auto) 39.3 % Monocytes (%) (Auto) 9.3 % Eosinophils (%) (Auto) 3.0 % Basophils (%) (Auto) 0.8 % Neutrophils # (Auto) 3.3 TH/MM3 Lymphocytes # (Auto) 2.7 TH/MM3 Monocytes # (Auto) 0.6 TH/MM3 Eosinophils # (Auto) 0.2 TH/MM3 Basophils # (Auto) 0.1 TH/MM3 CBC Comment DIFF FINAL Differential Comment Sodium Level 145 MEQ/L Potassium Level 3.8 MEQ/L Chloride Level 110 MEQ/L Carbon Dioxide Level 26.4 MEQ/L Anion Gap 9 MEQ/L Blood Urea Nitrogen 13 MG/DL Creatinine 0.91 MG/DL Estimat Glomerular Filtration 59 ML/MIN Rate Random Glucose 101 MG/DL Calcium Level 8.8 MG/DL [facility] Medical Record Reviewed: Yes Supervised Visit with MARLO: No Differential Diagnosis laceration, abrasion, fall Narrative Course 81 yr old female s/p fall with laceration to the occiput. measures 2.3 cm irregularly shaped. area repaired with 6 luke. Patient tolerated without incident. will need removal in ~ 7-10 days. I discussed with her caregiver. Procedures Procedure Narrative LACERATION LOCATION: Scalp/occiput LENGTH: 2.3 cm NUMBER OF STITCHES/LUKE: 6 [place] REPAIR: The area of the laceration was prepped with Betadine and sterilely draped. The laceration was infiltrated with 1% lidocaine with epi. The wound was copiously irrigated and explored without evidence of foreign body, tendon injury or neurovascular injury. The wound was closed using luke. This was a single layer repair. A sterile dressing was applied. The patient was advised to keep the dressing clean and dry. Patient tolerated the procedure well. Diagnosis Primary Impression: Scalp laceration Qualified Code: S01.01XA - Scalp laceration, initial encounter Additional Impression: Fall Qualified Code: W19.XXXA - Fall, initial encounter Referrals: Primary Care Physician 1 week Additional Instruction: Staple removal in 7-10 days Disposition: 01 DISCHARGE HOME Condition: Stable Apryl Mullins March 15, 2017 09:34
--- NOTE | 2017-03-15 16:12 | EKG ---
Date Performed: 03/15/2017 Time Performed: 07:47:45 PTAGE: 81 years EKG: Sinus rhythm POSSIBLE RIGHT VENTRICULAR CONDUCTION DELAY MINIMAL ST DEPRESSION BORDERLINE ECG PREVIOUS TRACING : 11/08/2016 10.26 Compared to prior tracing no significant change DOCTOR: Cyndi Alcantar Interpretating Date/Time 03/15/2017 16:11:30
== END 2017-03-15 10:13 | disposition home or self-care (01) ==
LOC: NEPC 07:34
DX: S01.01XA Laceration without foreign body of scalp, initial encounter (principal); I10 Essential (primary) hypertension; F03.90 Unspecified dementia, unspecified severity, without behavioral disturbance, psychotic disturbance, mood disturbance, and anxiety; W19.XXXA Unspecified fall, initial encounter; Y92.009 Unspecified place in unspecified non-institutional (private) residence as the place of occurrence of the external cause
CPT/HCPCS: 12001; 70450; 72125; 80048; 85025; 93005

== ENCOUNTER 2017-03-17 08:19 | Inpatient (IN) | payer MEDICARE, BC ==
[2017-03-17] VITALS (14 sets, daily range): BP systolic 160–203; BP diastolic 67–86; PULSE 72–83; RESP 16–20; TEMP 97.4–98.7; O2SAT 97–99
[~2017-03-17] VITALS: Ht 165.1 cm; Wt 63.0 kg
[~2017-03-17 08:19] MED LIST changes: +DONE10TA7 PO; +RISP0.5T2 PO
--- NOTE | 2017-03-17 08:44 | PD ---
HPI Chief Complaint: Altered Mental Status Time Seen by Provider: 08:44 Travel History International Travel<30 days: No Contact w/Intl Traveler<30days: No Traveled to known affect area: No History of Present Illness HPI 81-year-old female came to the emergency room brought by her professor of biochemistry with history of altered mental status since past 3 days. Patient fell and hit her head 3 days ago. She was brought to the emergency room by her and workup including CAT scan of the head was done. She had luke applied and discharged home. Liver as per the professor of biochemistry patient has been extremely lethargic and seems to be not moving her left upper extremity since then. She has not been able to get out of the bed which is not her at all. Her speech has been slow and not responding as promptly. She appeared to be the same way in triage. Patient was hypertensive in triage. Patient is unable to give any meaningful history herself. PFSH Past Medical History Narrative Medical List of her past medical, surgical, social and family history is reviewed from the nursing note. Alzheimer's Disease: Yes Blood Disorders: No Heart Rhythm Problems: No Cancer: No Cardiovascular Problems: Yes High Cholesterol: No Chest Pain: No Congestive Heart Failure: No Dementia: Yes Diminished Hearing: No Endocrine: No Genitourinary: No Hypertension: Yes Immune Disorder: No Musculoskeletal: No Neurologic: Yes Psychiatric: No Reproductive: No Respiratory: No Immunizations Current: Yes Menopausal: Yes Past Surgical History Appendectomy: Yes Cholecystectomy: Yes Hysterectomy: Yes Other Surgery: Yes Social History Alcohol Use: No Tobacco Use: No Substance Use: No Allergies-Medications (Allergen,Severity, Reaction): Coded Allergies: Contrast Media (Verified Allergy, Mild, 12/28/15) Sulfa (Verified Allergy, Mild, 12/28/15) Tetanus Toxoid (Verified Allergy, Mild, 12/28/15) Comments Rest of her allergies reviewed from the nursing note. Reported Meds & Prescriptions Reported Meds & Active Scripts Active Hospital Bed - Electric 1 Ea Ea 1 Ea .ROUTE DIRECTED Commode 3-in-1 (Device) 1 Mis Mis 1 Ea .ROUTE DIRECTED Walker with Front Wheels (Device) 1 Mis Mis 1 Ea .ROUTE DIRECTED Reported Risperidone 0.5 Mg Tab 0.5 Mg PO HS Donepezil 10 Mg Tab 10 Mg PO HS Loratadine 10 Mg Tab 10 Mg PO DAILY Namenda (Memantine) 10 Mg Tab 10 Mg PO BID Fluoxetine (Fluoxetine HCl) 10 Mg Cap 10 Mg PO DAILY Vitamin D-1000 (Cholecalciferol) 1,000 Unit Tab 1,000 Units PO DAILY Metoprolol Tartrate 25 Mg Tab 25 Mg PO BID Centrum (Multiple Vitamins W/ Minerals) 1 Tab 1 Tab PO DAILY Alph-E (Vitamin E) 400 Unit Cap 400 Units PO DAILY Narrative Medication List of her home medications reviewed from the nursing note. Review of Systems Except as stated in HPI: all other systems reviewed are Neg Physical Exam Narrative GENERAL: Lethargic, slowly responding, moderate distress SKIN: Focused skin assessment warm/dry. HEAD: Austin applied to the occipital area of the scalp EYES: Pupils equal and round. No scleral icterus. No injection or drainage. ENT: No nasal bleeding or discharge. Dry mucous membrane NECK: Trachea midline. No JVD. CARDIOVASCULAR: Regular rate and rhythm. No murmur appreciated. RESPIRATORY: No accessory muscle use. Clear to auscultation. Breath sounds equal bilaterally. GASTROINTESTINAL: Abdomen soft, non-tender, nondistended. Hepatic and splenic margins not palpable. MUSCULOSKELETAL: No obvious deformities. No clubbing. No cyanosis. No edema. NEUROLOGICAL: GCS of 13, slow speech, motor strength 3 out of 5 all 4 extremities PSYCHIATRIC: Unable to assess Data Data Last Documented VS Vital Signs Date Time Temp Pulse Resp B/P Pulse Ox O2 Delivery O2 Flow Rate FiO2 03/17/17 11:03 82 185/76 99 03/17/17 10:31 Room Air 03/17/17 08:48 18 03/17/17 08:30 98.7 Orders Electrocardiogram (03/17/17 08:52) Ammonia (03/17/17 08:52) Complete Blood Count With Diff (03/17/17 08:52) Comprehensive Metabolic Panel (03/17/17 08:52) Creatine Kinase (Cpk) (03/17/17 08:52) Prothrombin Time / Inr (Pt) (03/17/17 08:52) Troponin I (03/17/17 08:52) Thyroid Stimulating Hormone (03/17/17 08:52) Urinalysis - C+S If Indicated (03/17/17 08:52) Lactic Acid Sepsis Protocol (03/17/17 08:52) Blood Culture (03/17/17 08:52) Chest, Single Ap (03/17/17 08:52) Ct Brain W/O Iv Contrast(Rout) (03/17/17 08:52) Blood Glucose (03/17/17 08:52) Ecg Monitoring (03/17/17 08:52) Iv Access Insert/Monitor (03/17/17 08:52) Oximetry (03/17/17 08:52) Sodium Chloride 0.9% Flush (Ns Flush) (03/17/17 09:00) Sodium Chlorid 0.9% 500 Ml Inj (Ns 500 M (03/17/17 09:00) Urinary Catheter Insert/Apply (03/17/17 08:52) Urine Culture (03/17/17 09:50) Ceftriaxone Inj (Rocephin Inj) (03/17/17 11:30) Admit Order (Ed Use Only) (03/17/17 11:23) Labs Laboratory Tests Test 03/17/17 03/17/17 09:00 09:50 Prothrombin Time 10.9 SEC Prothromb Time International 1.0 RATIO Ratio Sodium Level 144 MEQ/L Potassium Level 3.9 MEQ/L Chloride Level 107 MEQ/L Carbon Dioxide Level 27.2 MEQ/L Anion Gap 10 MEQ/L Blood Urea Nitrogen 14 MG/DL Creatinine 0.84 MG/DL Estimat Glomerular Filtration 65 ML/MIN Rate Random Glucose 93 MG/DL Lactic Acid Level 1.5 mmol/L Calcium Level 9.2 MG/DL Total Bilirubin 0.5 MG/DL Aspartate Amino Transf 21 U/L (AST/SGOT) Alanine Aminotransferase 27 U/L (ALT/SGPT) Alkaline Phosphatase 102 U/L Ammonia 24 MCMOL/L Total Creatine Kinase 53 U/L Troponin I LESS THAN 0.02 NG/ML Total Protein 7.1 GM/DL Albumin 3.3 GM/DL Thyroid Stimulating Hormone 0.791 uIU/ML 3rd Gen White Blood Count 7.4 TH/MM3 Red Blood Count 4.40 MIL/MM3 Hemoglobin 13.2 GM/DL Hematocrit 40.5 % Mean Corpuscular Volume 92.1 FL Mean Corpuscular Hemoglobin 30.0 PG Mean Corpuscular Hemoglobin 32.6 % Concent Red Cell Distribution Width 14.5 % Platelet Count 168 TH/MM3 Mean Platelet Volume 7.1 FL Neutrophils (%) (Auto) 58.8 % Lymphocytes (%) (Auto) 28.7 % Monocytes (%) (Auto) 10.0 % Eosinophils (%) (Auto) 2.2 % Basophils (%) (Auto) 0.3 % Neutrophils # (Auto) 4.3 TH/MM3 Lymphocytes # (Auto) 2.1 TH/MM3 Monocytes # (Auto) 0.7 TH/MM3 Eosinophils # (Auto) 0.2 TH/MM3 Basophils # (Auto) 0.0 TH/MM3 CBC Comment DIFF FINAL Differential Comment Urine Color YELLOW Urine Turbidity HAZY Urine pH 6.5 Urine Specific [place] 1.016 Urine Protein NEG mg/dL Urine Glucose (UA) NEG mg/dL Urine Ketones NEG mg/dL Urine Occult Blood NEG Urine Nitrite POS Urine Bilirubin NEG Urine Urobilinogen LESS THAN 2.0 MG/DL Urine Leukocyte Esterase MOD Urine RBC 2 /hpf Urine WBC 6 /hpf Urine Squamous Epithelial <1 /hpf Cells Urine Bacteria MANY /hpf Urine Mucus FEW /lpf Microscopic Urinalysis Comment CATH-CULTURE IND MDM Medical Decision Making Medical Screen Exam Complete: Yes Emergency Medical Condition: Yes Medical Record Reviewed: Yes Interpretation(s) Twelve-lead EKG was reviewed by me. Normal sinus rhythm, normal axis, nonspecific ST-T wave changes. Heart rate of 75 bpm. Differential Diagnosis Intracranial bleed, CVA, UTI, rhabdomyolysis, metabolic encephalopathy Narrative Course 11:15AM blood test results of back and within normal limits. UA is positive for UTI. Head CT did not show any acute head bleed. However given her altered mental status and inability to follow commands I don't think she is appropriate to be discharged home. I have given her dose of Rocephin and spoken with the hospitalist was accepted the case. Patient will be admitted. Procedures EKG Prior to Arrival: No Diagnosis Primary Impression: Altered mental status Qualified Code: R40.0 - Somnolence Additional Impressions: UTI (urinary tract infection) Qualified Code: N39.0 - Urinary tract infection without hematuria, site unspecified Fall Qualified Code: W19.XXXD - Fall, subsequent encounter Admitting Information Admitting Physician Requests: Admit Scripts [Cefuroxime Axetil] (Ceftin)250 MG TAB No Conflict Syokn008 Mg PO Q12HR #10 TAB Ref 0 Prov:Jacqui Frederick 03/20/17 Mary Pittman MD March 17, 2017 08:44 Mary Pittman MD March 17, 2017 08:44
[2017-03-17] MEDS ORDERED: SODIUM CHLORIDE 0.9% FLUSH 5 ML FLUSH IV FLUSH PRN (09:00)
[2017-03-17] MEDS ORDERED: SODIUM CHLORID 0.9% 500 ML INJ 500 ML IV ONE (09:00)
[2017-03-17 09:16] LABS: AUTOMATED NEUTROPHIL # 4.3 TH/MM3 (1.8-7.7); BASOPHIL % 0.3 % (0.0-2.0); EOSINOPHIL # 0.2 TH/MM3 (0-0.4); EOSINOPHIL % 2.2 % (0.0-4.0); HEMATOCRIT 40.5 % (35.0-46.0); HEMO FLAGS DIFF FINAL; LYMPH % 28.7 % (9.0-44.0); LYMPHOCYTE # 2.1 TH/MM3 (1.0-4.8); MEAN CELL VOLUME 92.1 FL (80.0-100.0); MEAN CORPUSCULAR HGB CONC 32.6 % (32.0-36.0); NEUT % 58.8 % (16.0-70.0); PLATELET COUNT 168 TH/MM3 (150-450); RED CELL DISTRIBUTION WIDTH 14.5 % (11.6-17.2); WHITE BLOOD COUNT 7.4 TH/MM3 (4.0-11.0)
[2017-03-17 09:25] LABS: PROTHROMBIN TIME - PATIENT 10.9 SEC (9.8-11.6)
--- NOTE | 2017-03-17 09:36 | RADRPT ---
EXAM DATE/TIME: 03/17/2017 09:18 [facility] COMPARISON: CT BRAIN W/O CONTRAST, March 15, 2017, 8:15. INDICATIONS : Altered mental status today. History of old infarctions.. RADIATION DOSE: 32.62 CTDIvol (mGy) MEDICAL HISTORY : Cardiovascular disease. Hypertension. Alzheimer's. SURGICAL HISTORY : None. ENCOUNTER: Initial ACUITY: 1 day PAIN SCALE: Non-responsive LOCATION: Bilateral head TECHNIQUE: Multiple contiguous axial images were obtained of the head. Using automated exposure control and adj ustment of the mA and/or kV according to patient size, radiation dose was kept as low as reasonably a chievable to obtain optimal diagnostic quality images. FINDINGS: CEREBRUM: There is diffuse moderate to severe atrophic change with sulcal and ventricular prominence. 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 No evidence of midline shift, mass lesion, hemorrhage or acute infarction. N o extra-axial fluid collections are seen. POSTERIOR FOSSA: The cerebellum and brainstem are intact. The 4th ventricle is midline. The cerebellopontine angle i s unremarkable. EXTRACRANIAL: The visualized portion of the orbits is intact. SKULL: The calvaria is intact. No evidence of skull fracture. There is soft tissue swelling and surgical st aples over the left occipital lobe with no evidence of fracture. CONCLUSION: 1. No acute hemorrhage or mass effect. 2. 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 3. Moderate to severe atrophic change. 4. Soft tissue swelling and skin luke over left occipital lobe with no evidence of fracture. José Antonio Price MD on March 17, 2017 at 9:32 Board Certified Radiologist. This report was verified electronically.
--- NOTE | 2017-03-17 09:41 | RADRPT ---
EXAM DATE/TIME: 03/17/2017 09:02 [facility] COMPARISON: CHEST SINGLE AP, November 08, 2016, 10:40. INDICATIONS : Short of breath with wheezing, confusion, syncope. MEDICAL HISTORY : Unresponsive SURGICAL HISTORY : Unresponsive ENCOUNTER: Initial ACUITY: 1 day PAIN SCORE: Non-responsive. LOCATION: Bilateral chest FINDINGS: A single view of the chest demonstrates the lungs to be symmetrically aerated without evidence of mas s, infiltrate or effusion. Mild scarring remains in the lung apices right greater than left. The car diomediastinal contours are unremarkable. Osseous structures are intact. CONCLUSION: No acute disease. José Antonio Price MD on March 17, 2017 at 9:38 Board Certified Radiologist. This report was verified electronically.
[2017-03-17 09:42] LABS: ANION GAP 10 MEQ/L (5-15); BICARBONATE 27.2 MEQ/L (21.0-32.0); BLOOD UREA NITROGEN 14 MG/DL (7-18); CHLORIDE 107 MEQ/L (98-107); GLOMERULAR FILTRATION RATE 65 ML/MIN (>89); POTASSIUM 3.9 MEQ/L (3.5-5.1); SODIUM (NA) 144 MEQ/L (136-145)
[2017-03-17 09:53] LABS: ALKALINE PHOSPHATASE 102 U/L (45-117); ALT (GPT) 27 U/L (10-53); AST (GOT) 21 U/L (15-37); TOTAL BILIRUBIN ADULT 0.5 MG/DL (0.2-1.0)
[2017-03-17 09:55] LABS: CREATINE KINASE 53 U/L (26-192)
[2017-03-17 11:07] LABS: BACTERIA, URINE MANY /hpf; BLOOD, URINE NEG (NEG); COMMENT (UR) CATH-CULTURE IND; CULTURE IF INDICATED CATH CULTURE IND; GLUCOSE,URINE NEG (NEG); KETONE, URINE NEG (NEG); MUCUS URINE FEW /lpf (OCC); PH, URINE 6.5 (5.0-8.5); SQUAMOUS EPITHELIAL CELL URINE <1 /hpf (0-5); URINE COLOR YELLOW (YELLW/STRAW)
[2017-03-17 11:12] LABS: NITRITE,URINE POS (NEG)
[2017-03-17] MEDS ORDERED: ONDANSETRON HCL 4 MG/2 ML VIAL IVP PRN (11:30)
[2017-03-17] MEDS ORDERED: ACETAMINOPHEN 325 MG TAB PO PRN (11:30)
[2017-03-17] MEDS ORDERED: SODIUM CHLORIDE 0.9% FLUSH 10 ML FLUSH IV FLUSH PRN (11:30)
[2017-03-17] MEDS ORDERED: NALOXONE HCL 0.4 MG/ML AMP IV PRN (11:30)
[2017-03-17] MEDS ORDERED: cefTRIAXone INJ 1,000 MG in SODIUM CHLORIDE 0.9% INJ 100 ML IV ONE (11:30)
[2017-03-17] MEDS: HEPARIN SODIUM - SQ 10,000 UNITS/ML VIAL SQ SCH ×2 (12:08→23:49)
[2017-03-17] MEDS: SODIUM CHLOR 0.9% 1000 ML INJ 1,000 ML IV SCH (12:09)
--- NOTE | 2017-03-17 13:58 | RADRPT ---
EXAM DATE/TIME: 03/17/2017 12:47 [facility] COMPARISON: CT BRAIN W/O CONTRAST, March 17, 2017, 9:18. INDICATIONS : Altered mental status since past 3 days. Patient fell and hit her head 3 days ago. MEDICAL HISTORY : Hypertension. Dementia. SURGICAL HISTORY : Cholecystectomy. Left elbow surgery ENCOUNTER: Initial ACUITY: 3 day PAIN SCORE: 0/10 LOCATION: cranial TECHNIQUE: Multiplanar, multisequence MRI of the brain was performed without contrast. FINDINGS: CEREBRUM: The ventricles are normal for age with diffuse moderate atrophic change with sulcal and ventricular p rominence. There are areas of encephalomalacia noted involving both temporal lobes left greater than right and left occipital lobe. No evidence of midline shift, mass lesion, hemorrhage or acute infarct ion. No extraaxial fluid collections are seen. The pituitary gland and suprasellar cistern are norm al in configuration. WHITE MATTER: On the flair weighted images there is increased signal also noted in the periventricular white matter and centrum semiovale consistent with chronic small vessel ischemic change. POSTERIOR FOSSA: The cerebellum and brainstem are intact. The 4th ventricle is midline. The cerebellopontine angle is unremarkable. The cerebellar tonsils are normal in position. DIFFUSION IMAGING: No focal areas of restricted diffusion are seen. No evidence of acute infarction. EXTRACRANIAL: The visualized portions of the orbits and paranasal sinuses are unremarkable. CONCLUSION: 1. No acute hemorrhage or infarction. 2. There is an encephalomalacia consistent with remote insult. 3. Moderate atrophic change and chronic small vessel ischemic changes. José Antonio Price MD on March 17, 2017 at 13:54 Board Certified Radiologist. This report was verified electronically.
--- NOTE | 2017-03-17 15:56 | HHI.PR ---
Objective Objective Results - Vital Signs Date Time Temp Pulse Resp B/P Pulse Ox O2 Delivery O2 Flow Rate FiO2 03/17/17 13:56 81 20 163/70 98 Room Air 03/17/17 12:31 73 183/78 99 Room Air 03/17/17 12:12 79 20 203/86 98 Room Air 03/17/17 11:47 75 20 188/80 99 Room Air 03/17/17 11:31 74 177/76 99 Room Air 03/17/17 11:28 72 194/81 99 Room Air 03/17/17 11:03 82 185/76 99 03/17/17 10:31 75 188/80 99 Room Air 03/17/17 08:55 98 Room Air 03/17/17 08:55 98 Room Air 03/17/17 08:48 76 18 164/70 98 Room Air 03/17/17 08:43 79 183/76 98 Room Air 03/17/17 08:30 98.7 75 18 196/83 99 I/O 03/16/17 03/16/17 03/16/17 03/17/17 03/17/17 03/17/17 07:00 15:00 23:00 07:00 15:00 23:00 Intake Total 595 ml Balance 595 ml Intake IV Total 595 ml Result Diagram: 03/17/17 0903/17/17 09 Other Results Laboratory Tests Test 03/17/17 03/17/17 03/17/17 09:00 09:50 13:53 White Blood Count 7.4 Red Blood Count 4.40 Hemoglobin 13.2 Hematocrit 40.5 Mean Corpuscular Volume 92.1 Mean Corpuscular Hemoglobin 30.0 Mean Corpuscular Hemoglobin 32.6 Concent Red Cell Distribution Width 14.5 Platelet Count 168 Mean Platelet Volume 7.1 Neutrophils (%) (Auto) 58.8 Lymphocytes (%) (Auto) 28.7 Monocytes (%) (Auto) 10.0 Eosinophils (%) (Auto) 2.2 Basophils (%) (Auto) 0.3 Neutrophils # (Auto) 4.3 Lymphocytes # (Auto) 2.1 Monocytes # (Auto) 0.7 Eosinophils # (Auto) 0.2 Basophils # (Auto) 0.0 CBC Comment DIFF FINAL Differential Comment Prothrombin Time 10.9 Prothromb Time International 1.0 Ratio Sodium Level 144 Potassium Level 3.9 Chloride Level 107 Carbon Dioxide Level 27.2 Anion Gap 10 Blood Urea Nitrogen 14 Creatinine 0.84 Estimat Glomerular Filtration 65 Rate Random Glucose 93 Lactic Acid Level 1.5 Calcium Level 9.2 Total Bilirubin 0.5 Aspartate Amino Transf 21 (AST/SGOT) Alanine Aminotransferase 27 (ALT/SGPT) Alkaline Phosphatase 102 Ammonia 24 Total Creatine Kinase 53 Troponin I LESS THAN 0.02 Total Protein 7.1 Albumin 3.3 Thyroid Stimulating Hormone 0.791 3rd Gen Urine Color YELLOW Urine Turbidity HAZY Urine pH 6.5 Urine Specific [place] 1.016 Urine Protein NEG Urine Glucose (UA) NEG Urine Ketones NEG Urine Occult Blood NEG Urine Nitrite POS Urine Bilirubin NEG Urine Urobilinogen LESS THAN 2.0 Urine Leukocyte Esterase MOD Urine RBC 2 Urine WBC 6 Urine Squamous Epithelial <1 Cells Urine Bacteria MANY Urine Mucus FEW Microscopic Urinalysis Comment CATH-CULTURE IND Random Cortisol 19.4 Date/Time Procedure Status Source Growth 03/17/17 09:50 Urine Culture Received Urine Catheterized Urine Pending 03/17/17 09:00 Aerobic Blood Culture Received Blood Peripheral Pending 03/17/17 09:00 Anaerobic Blood Culture Received Blood Peripheral Pending Physical Exam Physical Exam PHYSICAL EXAMINATION GENERAL: This is a well-developed, well-nourished female who appears to be in no acute distress. She is alert and awake, []. HEAD: Normocephalic without any lesion or mass noted. Facial features appear symmetric. EYES: Perrla, Normal eye movement, [] Icterus. [] Conj congestion. OROPHARYNGEAL: Oropharynx without erythema or edema. MOUTH/THROAT: Tongue midline []. Buccal mucosa is moist []. NECK: Supple. No nuchal rigidity or lymphadenopathy. Trachea midline without deviation. Thyroid not palpable, no bruits appreciated. CARDIAC: Regular rhythm, regular rate, S1 and S2 are heard. Murmur []; no gallops or rubs. LUNGS: Clear to auscultation bilaterally. [] wheeze, [] rhonchi or [] rale. No use of accessory muscles on inspiration or expiration. ABDOMEN: Soft, nontender, no organomegaly or masses. Bowel sounds are heard in all four quadrants. No rebound. No guarding. EXTREMITIES: [] edema. Pulses equal bilateral. [] cyanosis. NEUROLOGICAL: Patient mood and affect appropriate. Cranial nerves II through XII grossly intact. Muscle strength 5/5 in the upper and lower extremities bilaterally. Deep tendon reflexes are 2+ in the upper and lower extremities bilaterally. SKIN:Warm and moist PSYCH: Mood and affect appropriate A/P Assessment and Plan patient seen and exasmined Please refer to admission H & p for details AMS likely sec to UTI UTI r/o CVA continue rocephin follow urine cultures MRI brain check TSH, cortisol and ammonia plan on thickened diet no family at bed side plan of care discussed with Waleska Dewey MD March 17, 2017 15:56
[2017-03-17] MEDS ORDERED: cloNIDine HCL 0.1 MG TAB PO PRN (16:45)
--- NOTE | 2017-03-17 16:53 | HHI.HP ---
[facility] Jose Alberto Richard MD Admission Diagnosis altered mental status, UTI Diagnoses: Chief Complaint: altered mental status Travel History International Travel<30 Days: No Contact w/Intl Traveler <30 Da: No Traveled to Known Affected Are: No History of Present Illness This is an 80-year-old female with history of dementia, atrial fibrillation, falls, previous subdural bleed secondary to fall, HTN. Pt. last admitted to this facility for fall after syncope in Oct. patient presented to the emergency room after she was noted altered. Patient brought in by caregivers. Patient had a fall 3 days ago and hit her head. She came to the emergency room, had CT of the head that was negative. She had luke applied and was discharged home. According to caregivers, patient had been extremely lethargic, she wasn' t moving very much and wasn't talking as much. Usually she is able to get up feed herself and can communicate her needs, although she doesn't engage in much conversation. There is no reported fever, no chills. Patient is unable to provide any history. She is oriented to self but otherwise doesn't know where she is. Her drains were completed in the emergency room was unremarkable. UTI was positive for moderate leukocyte esterase and bacteriuria. Blood pressure is uncontrolled, 190s. Patient was given a 500 cc bolus. Started on Rocephin. Patient is now examined in room 1518. Blood pressure has come down to 163/ 70. She remains altered. Caregiver is at bedside providing most details. Patient is admitted for further evaluation and treatment. Review of Systems ROS Limitations: Altered Mental Status, Poor Historian Past Family Social History Past Medical History paroxysmal afib previous falls with subdural hemorrhage, non surgical treatment dementia gallstones HTN Abd. bruit IBS SMA stenosis NSVT Past Surgical History Appendectomy Cholecystectomy Hysterectomy left elbow fracture and repair 10/2015 Reported Medications Reported Medications Reported Meds & Active Scripts Active Hospital Bed - Electric 1 Ea Ea 1 Ea .ROUTE DIRECTED Commode 3-in-1 (Device) 1 Mis Mis 1 Ea .ROUTE DIRECTED Walker with Front Wheels (Device) 1 Mis Mis 1 Ea .ROUTE DIRECTED Reported Risperidone 0.5 Mg Tab 0.5 Mg PO HS Donepezil 10 Mg Tab 10 Mg PO HS Loratadine 10 Mg Tab 10 Mg PO DAILY Namenda (Memantine) 10 Mg Tab 10 Mg PO BID Fluoxetine (Fluoxetine HCl) 10 Mg Cap 10 Mg PO DAILY Vitamin D-1000 (Cholecalciferol) 1,000 Unit Tab 1,000 Units PO DAILY Metoprolol Tartrate 25 Mg Tab 25 Mg PO BID Centrum (Multiple Vitamins W/ Minerals) 1 Tab 1 Tab PO DAILY Alph-E (Vitamin E) 400 Unit Cap 400 Units PO DAILY Allergies: Coded Allergies: Contrast Media (Verified Allergy, Mild, 12/28/15) Sulfa (Verified Allergy, Mild, 12/28/15) Tetanus Toxoid (Verified Allergy, Mild, 12/28/15) Active Ordered Medications Inpatient Medications Acetaminophen (Tylenol) 650 mg Q4H PRN PO TEMP > 100.4; Start 03/17/17 at 11:30 Ceftriaxone Sodium 1000 mg/ Sodium Chloride 100 ml @ 200 mls/hr ONCE ONCE IV Last administered on 03/17/17 11:27; Start 03/17/17 at 11:30; Stop 03/17/17 at 11:59; Status DC Ceftriaxone Sodium/Sodium Chloride (Rocephin Inj/NS Inj) 100 ml @ 200 mls/hr Q24H IV ; Start 03/18/17 at 11:00 Heparin Sodium (Porcine) (Heparin Inj) 5,000 units Q12H SQ Last administered on 03/17/17 12:08; Start 03/17/17 at 12:00 IV Flush 2 ml 2 ml UNSCH PRN IV FLUSH FLUSH AFTER USING IV ACCESS; Start at 09:00; Stop 03/17/17 at 11:38; Status DC Naloxone HCl 0.4 mg 0.4 mg UNSCH PRN IV SEE LABEL COMMENTS; Start 03/17/17 at 11:30 Ondansetron HCl (Zofran Inj) 4 mg Q6H PRN IVP NAUSEA OR VOMITING; Start at 11:30 Sodium Chloride (NS 1000 ml Inj) 1,000 ml @ 50 mls/hr Q20H IV Last administered on 03/17/17 12:09; Start 03/17/17 at 11:23 Sodium Chloride (NS Flush) 2 ml BID IV FLUSH ; Start 03/17/17 at 21:00 Family History Unable to obtain Social History Pt. has a son, granddaughter Gilma is POA and lives out of state. Pt. has caregivers 24 hours. No ETOH, no substance abuse, smoking. No assistive devices. Pt. ambulatory, able to feed herself, communicate needs Physical Exam Vital Signs Vital Signs Date Time Temp Pulse Resp B/P Pulse Ox O2 Delivery O2 Flow Rate FiO2 03/17/17 13:56 81 20 163/70 98 Room Air 03/17/17 12:31 73 183/78 99 Room Air 03/17/17 12:12 79 20 203/86 98 Room Air 03/17/17 11:47 75 20 188/80 99 Room Air 03/17/17 11:31 74 177/76 99 Room Air 03/17/17 11:28 72 194/81 99 Room Air 03/17/17 11:03 82 185/76 99 03/17/17 10:31 75 188/80 99 Room Air 03/17/17 08:55 98 Room Air 03/17/17 08:55 98 Room Air 03/17/17 08:48 76 18 164/70 98 Room Air 03/17/17 08:43 79 183/76 98 Room Air 03/17/17 08:30 98.7 75 18 196/83 99 Physical Exam GENERAL: This is a well-nourished, well-developed patient, in no apparent distress. SKIN: No rashes, ecchymoses or lesions. Cool and dry. HEAD: Atraumatic. Normocephalic. No temporal or scalp tenderness. EYES: Pupils equal round and reactive. Extraocular motions intact. No scleral icterus. No injection or drainage. ENT: Nose without bleeding, purulent drainage or septal hematoma. Throat without erythema, tonsillar hypertrophy or exudate. Uvula midline. Airway patent. NECK: Trachea midline. No JVD or lymphadenopathy. Supple, nontender, no meningeal signs. CARDIOVASCULAR: Regular rate and rhythm without murmurs, gallops, or rubs. RESPIRATORY: Clear to auscultation. Breath sounds equal bilaterally. No wheezes , rales, or rhonchi. GASTROINTESTINAL: Abdomen soft, non-tender, nondistended. No hepato-splenomegaly , or palpable masses. No guarding. MUSCULOSKELETAL: Extremities without clubbing, cyanosis, or edema. No joint tenderness, effusion, or edema noted. No calf tenderness. Negative Homans sign bilaterally. NEUROLOGICAL: Patient is awake, able to provide her name. Doesn't know where she is. Follows simple commands. Upper and lower extremity strength 3 out of 5 bilaterally. Slow to respond. Laboratory Laboratory Tests Test 03/17/17 03/17/17 03/17/17 09:00 09:50 13:53 White Blood Count 7.4 Red Blood Count 4.40 Hemoglobin 13.2 Hematocrit 40.5 Mean Corpuscular Volume 92.1 Mean Corpuscular Hemoglobin 30.0 Mean Corpuscular Hemoglobin 32.6 Concent Red Cell Distribution Width 14.5 Platelet Count 168 Mean Platelet Volume 7.1 Neutrophils (%) (Auto) 58.8 Lymphocytes (%) (Auto) 28.7 Monocytes (%) (Auto) 10.0 Eosinophils (%) (Auto) 2.2 Basophils (%) (Auto) 0.3 Neutrophils # (Auto) 4.3 Lymphocytes # (Auto) 2.1 Monocytes # (Auto) 0.7 Eosinophils # (Auto) 0.2 Basophils # (Auto) 0.0 CBC Comment DIFF FINAL Differential Comment Prothrombin Time 10.9 Prothromb Time International 1.0 Ratio Sodium Level 144 Potassium Level 3.9 Chloride Level 107 Carbon Dioxide Level 27.2 Anion Gap 10 Blood Urea Nitrogen 14 Creatinine 0.84 Estimat Glomerular Filtration 65 Rate Random Glucose 93 Lactic Acid Level 1.5 Calcium Level 9.2 Total Bilirubin 0.5 Aspartate Amino Transf 21 (AST/SGOT) Alanine Aminotransferase 27 (ALT/SGPT) Alkaline Phosphatase 102 Ammonia 24 Total Creatine Kinase 53 Troponin I LESS THAN 0.02 Total Protein 7.1 Albumin 3.3 Thyroid Stimulating Hormone 0.791 3rd Gen Urine Color YELLOW Urine Turbidity HAZY Urine pH 6.5 Urine Specific [place] 1.016 Urine Protein NEG Urine Glucose (UA) NEG Urine Ketones NEG Urine Occult Blood NEG Urine Nitrite POS Urine Bilirubin NEG Urine Urobilinogen LESS THAN 2.0 Urine Leukocyte Esterase MOD Urine RBC 2 Urine WBC 6 Urine Squamous Epithelial <1 Cells Urine Bacteria MANY Urine Mucus FEW Microscopic Urinalysis Comment CATH-CULTURE IND Random Cortisol 19.4 Date/Time Procedure Status Source Growth 03/17/17 09:50 Urine Culture Received Urine Catheterized Urine Pending 03/17/17 09:00 Aerobic Blood Culture Received Blood Peripheral Pending 03/17/17 09:00 Anaerobic Blood Culture Received Blood Peripheral Pending Result Diagram: 03/17/17 0900 03/17/17 0900 Imaging Last Impressions Head CT 03/17/17 0852 Signed Impressions: Service Date/Time: Friday, March 17, 2017 09:18 - CONCLUSION: 1. No acute hemorrhage or mass effect. 2. Old areas of encephalomalacia involving the upper lobes and left occipital lobes consistent with areas of old infarction. 3. Moderate to severe atrophic change. 4. Soft tissue swelling and skin luke over left occipital lobe with no evidence of fracture. José Antonio Price MD Chest X-Ray 03/17/17 0852 Signed Impressions: Service Date/Time: Friday, March 17, 2017 09:02 - CONCLUSION: No acute disease. José Antonio Price MD Brain MRI 03/17/17 0000 Signed Impressions: Service Date/Time: Friday, March 17, 2017 12:47 - CONCLUSION: 1. No acute hemorrhage or infarction. 2. There is an encephalomalacia consistent with remote insult. 3. Moderate atrophic change and chronic small vessel ischemic changes. José Antonio Price MD Assessment and Plan Problem List: (1) Altered mental status (2) UTI (urinary tract infection) (3) Scalp laceration (4) Atrial fibrillation (5) History of recent fall (6) Uncontrolled hypertension Assessment and Plan Admit to Dr. Goetz 81-year-old elderly female with history of dementia, A. fib, previous falls with subdural bleed, syncopal episode, and NSVT. Patient brought into the emergency room for altered mental status. Patient was seen here in the emergency room 3 days ago after she had a fall and hit her head, had luke applied. Initial CT was negative. Patient brought back in for increased lethargy, was found with UTI in the emergency room. -Continue Rocephin 1 g IV daily, follow cultures Neuro checks MRI of the brain has been ordered Recent fall with scalp laceration monitor wound -PT eval and tx Hypertension uncontrolled, now improving Continue home medications Add clonidine when necessary systolic greater than 170, diastolic rhythm night Dementia -Continue home medical History of paroxysmal A. fib and nonsustained VT, stable Continuous cardiac telemetry -Continue Lopressor 25 mg by mouth twice a day Home medications reviewed, initiated as indicated Heparin for DVT prophylaxis Plan of care has been discussed with the patient's caregiver, attending and registered nurse. Further management of the patient will be dependent on the hospital course This patient was seen by myself and Dr. Goetz, this H&P is written on her behalf Physician Certification 2 Midnight Certification Type: Admission for Inpatient Services Order for Inpatient Services The services are ordered in accordance with Medicare regulations or non- Medicare payer requirements, as applicable. In the case of services not specified as inpatient-only, they are appropriately provided as inpatient services in accordance with the 2-midnight benchmark. Estimated LOS (days): 2 2 days is the estimated time the patient will need to remain in the hospital, assuming treatment plan goals are met and no additional complications. Post-Hospital Plan: Not yet determined Problem Qualifiers (1) Altered mental status: Qualified Code: R40.0 - Somnolence (2) UTI (urinary tract infection): Qualified Code: N39.0 - Urinary tract infection without hematuria, site unspecified (3) Scalp laceration: Qualified Code: S01.01XD - Scalp laceration, subsequent encounter (4) Atrial fibrillation: Qualified Code: I48.91 - Atrial fibrillation, unspecified type Jacqui Frederick [facility] March 17, 2017 16:53
[2017-03-17] MEDS: risperiDONE 0.5 MG TAB PO SCH (21:00)
[2017-03-17] MEDS: SODIUM CHLORIDE 0.9% FLUSH 10 ML FLUSH IV FLUSH SCH (21:00)
[2017-03-17] MEDS: DONEPEZIL HCL 5 MG TAB PO SCH (21:58)
[2017-03-17] MEDS: MEMANTINE HCL 10 MG TAB PO SCH (21:58)
[2017-03-17] MEDS: METOPROLOL TARTRATE 25 MG TAB PO SCH (21:58)
[2017-03-18] VITALS (9 sets, daily range): BP systolic 117–147; BP diastolic 61–83; PULSE 79–104; RESP 16–18; TEMP 95.8–99.1; O2SAT 94–97
[2017-03-18] MEDS: MEMANTINE HCL 10 MG TAB PO SCH ×2 (08:48→20:24)
[2017-03-18] MEDS: SODIUM CHLORIDE 0.9% FLUSH 10 ML FLUSH IV FLUSH SCH ×2 (08:48→20:24)
[2017-03-18] MEDS: METOPROLOL TARTRATE 25 MG TAB PO SCH ×2 (08:48→20:24)
[2017-03-18] MEDS: FLUoxetine HCL 10 MG CAP PO SCH (08:48)
[2017-03-18] MEDS: SODIUM CHLOR 0.9% 1000 ML INJ 1,000 ML IV SCH (08:48)
[2017-03-18] MEDS: HEPARIN SODIUM - SQ 10,000 UNITS/ML VIAL SQ SCH (10:51)
[2017-03-18] MEDS: cefTRIAXone INJ 1,000 MG in SODIUM CHLORIDE 0.9% INJ 100 ML IV SCH (10:52)
[2017-03-18 11:47] LABS: AUTOMATED NEUTROPHIL # 5.1 TH/MM3 (1.8-7.7); BASOPHIL % 0.3 % (0.0-2.0); EOSINOPHIL # 0.2 TH/MM3 (0-0.4); EOSINOPHIL % 2.4 % (0.0-4.0); HEMATOCRIT 34.9 % (35.0-46.0); HEMO FLAGS DIFF FINAL; LYMPH % 19.9 % (9.0-44.0); LYMPHOCYTE # 1.5 TH/MM3 (1.0-4.8); MEAN CELL VOLUME 91.1 FL (80.0-100.0); MEAN CORPUSCULAR HEMOGLOBIN 30.2 PG (27.0-34.0); MEAN CORPUSCULAR HGB CONC 33.1 % (32.0-36.0); MONO % 9.3 % (0.0-8.0); NEUT % 68.1 % (16.0-70.0); PLATELET COUNT 167 TH/MM3 (150-450); RED BLOOD COUNT 3.83 MIL/MM3 (4.00-5.30); RED CELL DISTRIBUTION WIDTH 14.1 % (11.6-17.2); WHITE BLOOD COUNT 7.5 TH/MM3 (4.0-11.0)
[2017-03-18 12:15] LABS: BICARBONATE 27.7 MEQ/L (21.0-32.0); POTASSIUM 3.5 MEQ/L (3.5-5.1)
--- NOTE | 2017-03-18 13:58 | HHI.PR ---
Subjective Remarks Opens eyes but nonverbal to stimuli Appetite poor, thickener in room Eyes reddened bilateral with serous drainage No family present Afebrile (Victoria Walker) Objective Objective Results - Vital Signs Date Time Temp Pulse Resp B/P Pulse Ox O2 Delivery O2 Flow Rate FiO2 03/18/17 12:44 97.2 88 18 129/83 96 03/18/17 08:40 95.8 92 18 133/62 97 03/18/17 08:05 87 03/18/17 04:31 97.6 91 18 124/61 95 03/18/17 00:21 96.2 82 18 147/69 97 03/17/17 20:22 98.2 83 16 160/67 97 03/17/17 16:00 97.4 79 18 179/77 98 I/O 03/17/17 03/17/17 03/17/17 03/18/17 03/18/17 03/18/17 06:59 14:59 22:59 06:59 14:59 22:59 Intake Total 595 ml 400 ml Output Total 950 ml 600 ml Balance 595 ml -950 ml -200 ml Intake IV Total 595 ml 400 ml Output Urine Total 950 ml 600 ml # Bowel Movements 0 (Victoria Walker) Result Diagram: 03/18/17 1102 03/18/17 1102 ROS General: Fatigue, Weakness, Other (10 point ROS done positives noted other systems negative) HEENT: Dysphagia Pulmonary: Cough (occasional) GI: BM (no BM monitor bowel regimen) Neuro/MS: Confusion (pleasant), Other (end-stage dementia monitor swallow) ( Victoria Walker) Physical Exam Physical Exam PHYSICAL EXAMINATION GENERAL: This is a thin, frail female who appears to be in no acute distress. She opens eyes to loud voice HEAD: Normocephalic, bilateral erythema noted in eyes with some serous drainage OROPHARYNGEAL: Oropharynx without erythema NECK: Supple. Trachea midline without deviation. CARDIAC: Regular rhythm, regular rate, S1 and S2 are heard. Heart rate 80s LUNGS: Diminished with low volumes to auscultation bilaterally. ABDOMEN: Flat, Soft, nontender, no organomegaly or masses. Bowel sounds present EXTREMITIES: No edema. Pulses palpable NEUROLOGICAL: Patient mood and affect flat. Nonverbal this a.m. SKIN: Dry (Victoria Walker) A/P Assessment and Plan (1) Altered mental status (2) UTI (urinary tract infection) (3) Scalp laceration (4) Atrial fibrillation (5) History of recent fall (6) Uncontrolled hypertension Assessment and Plan Altered mental status probable secondary chiefly to UTI Rocephin IV, Rubalcava catheter and will plan to remove today, monitor culture CT shows old infarct areas, with small vessel disease, no acute findings Recent fall with scalp laceration Stable for now Due to patient's debility will have PT eval and treat Hypertension now controlled Vital signs reviewed normal trends Add clonidine as needed for any control Dementia, probable in stage Appetite poor monitor swallow and cough with eating, using thickener on diet for liquids, pured Medical management History of A. fib Currently sinus rhythm heart rate in the 80s we'll continue telemetry for now Home medications reviewed, initiated as indicated Heparin for DVT prophylaxis Discharge planning snf placement, not ready yet (Victoria Walker) Assessment and Plan patient seen and examined still confused No family at bed side MRI neg for acute stroke TSH, Cortisol and ammonia normal continue antibiotics continue current care plan of care discussed with Victoria HERRING follow cultures urine prelim GNR (Waleska Goetz MD) Victoria Walker March 18, 2017 13:58 Waleska Goetz MD March 18, 2017 16:11
--- NOTE | 2017-03-18 15:30 | EKG ---
Date Performed: 03/17/2017 Time Performed: 08:44:07 PTAGE: 81 years EKG: Sinus rhythm POSSIBLE RIGHT VENTRICULAR CONDUCTION DELAY MINIMAL ST DEPRESSION BORDERLINE ECG Compared to prior t racing no significant change PREVIOUS TRACING 03/15/2017 07.47.45 DOCTOR: Brynn Veronica Interpretating Date/Time 03/18/2017 15:28:30
[2017-03-18] MEDS: risperiDONE 0.5 MG TAB PO SCH (20:24)
[2017-03-18] MEDS: DONEPEZIL HCL 5 MG TAB PO SCH (20:24)
[2017-03-19] VITALS (7 sets, daily range): BP systolic 135–184; BP diastolic 58–72; PULSE 69–92; RESP 14–20; TEMP 95.8–97.8; O2SAT 95–96
[2017-03-19] MEDS: HEPARIN SODIUM - SQ 10,000 UNITS/ML VIAL SQ SCH ×3 (00:29→23:18)
[2017-03-19] MEDS: SODIUM CHLOR 0.9% 1000 ML INJ 1,000 ML IV SCH ×2 (03:10→23:14)
[2017-03-19] MEDS: FLUoxetine HCL 10 MG CAP PO SCH (09:07)
[2017-03-19] MEDS: MEMANTINE HCL 10 MG TAB PO SCH ×2 (09:07→21:10)
[2017-03-19] MEDS: METOPROLOL TARTRATE 25 MG TAB PO SCH ×2 (09:07→21:11)
[2017-03-19] MEDS: SODIUM CHLORIDE 0.9% FLUSH 10 ML FLUSH IV FLUSH SCH ×2 (09:08→21:11)
--- NOTE | 2017-03-19 11:31 | HHI.PR ---
Subjective Remarks Opens eyes appears more alert today Smiled when I entered the room Sitter in room with her who stays with her as an outpatient basis Appetite poor, thickener in room Tearing of eyes bilateral but erythema improved Afebrile (Victoria Walker) Objective Objective Results - Vital Signs Date Time Temp Pulse Resp B/P Pulse Ox O2 Delivery O2 Flow Rate FiO2 03/19/17 08:03 96.9 74 16 170/70 96 03/19/17 04:27 97.8 76 14 138/68 95 03/18/17 23:57 97.8 79 16 135/63 94 03/18/17 20:16 98.7 104 16 117/65 95 03/18/17 17:06 99.1 90 18 132/68 95 03/18/17 12:44 97.2 88 18 129/83 96 I/O 03/18/17 03/18/17 03/18/17 03/19/17 03/19/17 03/19/17 07:00 15:00 23:00 07:00 15:00 23:00 Intake Total 400 ml 785 ml 60 ml Output Total 600 ml 550 ml Balance -200 ml -550 ml 785 ml 60 ml Intake Oral 60 ml IV Total 400 ml 785 ml Output Urine Total 600 ml 550 ml # Voids 2 # Bowel Movements 1 1 (Victoria Walker) Result Diagram: 03/18/17 1102 03/18/17 1102 ROS General: Weakness (generalized acute on chronic), Other (10 point ROS done positives noted otherwise systems are negative) Pulmonary: Cough (occasional) GI: BM (I'll regimen BMs 2 yesterday) /TC OPERATOR: Dysuria (patient complained to sitter day of discharge of burning) Neuro/MS: Confusion (pleasant), Other (Alzheimer's dementia) (Victoria Walker) Physical Exam Physical Exam PHYSICAL EXAMINATION GENERAL: This is a thin elderly female who appears to be in no acute distress. She is smiling and awake, more alert, bilateral tearing of eyes but less erythema noted HEAD: Normocephalic without any lesion or mass noted OROPHARYNGEAL: Oropharynx without erythema or edema. NECK: Supple. No nuchal rigidity or lymphadenopathy. CARDIAC: Regular rhythm, regular rate, S1 and S2 are heard. LUNGS: Low volumes mild diminished sounds to auscultation bilaterally. No wheeze, occasional rhonchi ABDOMEN: Soft, nontender, no organomegaly or masses. Bowel sounds are heard in all four quadrants EXTREMITIES: No edema. Pulses equal bilateral. NEUROLOGICAL: Patient mood and affect flat, minimal verbal response with her Alzheimer's dementia. More alert today SKIN:Warm and moist (Victoria Walker) A/P Assessment and Plan (1) Altered mental status (2) UTI (urinary tract infection) (3) Scalp laceration (4) Atrial fibrillation (5) History of recent fall (6) Uncontrolled hypertension Assessment and Plan Altered mental status probable secondary chiefly to UTI, solving more alert today Rocephin IV, Rubalcava catheter DC'd on 03-18, culture results Escherichia coli for urine, blood cultures negative so far CT shows old infarct areas, with small vessel disease, no acute findings Patient has history of Alzheimer's dementia Recent fall with scalp laceration, healing Debility after being in bed for several days and UTI, DT OT eval's and treatment plans done Feels patient would benefit from rehabilitation placement. Will do case management consult as discharge planning should be able to happen in the next day or 2 Hypertension now controlled Vital signs reviewed normal trends Add clonidine as needed for any control Dementia, probable in stage Appetite poor monitor swallow and cough with eating, using thickener on diet for liquids, pured. Constant cues to swallow otherwise does fairly well History of A. fib Currently sinus rhythm heart rate in the 80s we'll continue telemetry for now Home medications reviewed, initiated as indicated Heparin for DVT prophylaxis Discharge planning snf rehabilitation, possibly in a.m. or next day with by mouth antibiotics to follow (Victoria Walker) Assessment and Plan patient seen and examined still confused, although per nursing reports was much alert ealrier continue current care E coli resistant to Cipro UTI continue Rocephin monitor BP Need rehab at discharge no family at bedside discussed with Victoria HERRING (Waleska Goetz MD) Victoria Walker March 19, 2017 11:31 Waleska Goetz MD March 19, 2017 15:57
[2017-03-19] MEDS: cefTRIAXone INJ 1,000 MG in SODIUM CHLORIDE 0.9% INJ 100 ML IV SCH (11:45)
[2017-03-19] MEDS: DONEPEZIL HCL 5 MG TAB PO SCH (21:10)
[2017-03-19] MEDS: risperiDONE 0.5 MG TAB PO SCH (21:10)
[2017-03-20] VITALS: BP 143/57; PULSE 76; RESP 18; TEMP 97.5; O2SAT 96
[2017-03-20 04:00] VITALS: BP 153/67; PULSE 66; RESP 20; TEMP 96.4; O2SAT 97
[2017-03-20 08:00] VITALS: BP 176/73; PULSE 69; RESP 20; TEMP 96.6; O2SAT 99
[2017-03-20] MEDS: FLUoxetine HCL 10 MG CAP PO SCH (09:12)
[2017-03-20] MEDS: MEMANTINE HCL 10 MG TAB PO SCH (09:12)
[2017-03-20] MEDS: SODIUM CHLORIDE 0.9% FLUSH 10 ML FLUSH IV FLUSH SCH (09:12)
[2017-03-20] MEDS: METOPROLOL TARTRATE 25 MG TAB PO SCH (09:12)
[2017-03-20 09:47] LABS: HEMATOCRIT 35.4 % (35.0-46.0); MEAN CELL VOLUME 92.1 FL (80.0-100.0); MEAN CORPUSCULAR HEMOGLOBIN 31.4 PG (27.0-34.0); MEAN CORPUSCULAR HGB CONC 34.1 % (32.0-36.0); PLATELET COUNT 161 TH/MM3 (150-450); RED BLOOD COUNT 3.85 MIL/MM3 (4.00-5.30); RED CELL DISTRIBUTION WIDTH 13.9 % (11.6-17.2); REVIEW FLAG FINAL; WHITE BLOOD COUNT 6.3 TH/MM3 (4.0-11.0)
[2017-03-20 10:06] LABS: BICARBONATE 25.2 MEQ/L (21.0-32.0); POTASSIUM 3.7 MEQ/L (3.5-5.1)
[2017-03-20 10:16] VITALS: PULSE 68
--- NOTE | 2017-03-20 11:39 | HHI.DCPOC ---
Discharge Care Plan Diagnosis: (1) Altered mental status (2) UTI (urinary tract infection) (3) Atrial fibrillation (4) Head injury (5) Scalp laceration (6) Uncontrolled hypertension (7) History of recent fall Your Health Problems Are: Anxiety Difficulty with ADL Goals to Promote Your Health * To prevent worsening of your condition and complications * To maintain your health at the optimal level Directions to Meet Your Goals Take your medications as prescribed Follow your dietary instruction Follow activity as directed Keep your appointments as scheduled Take your immunizations and boosters as scheduled If your symptoms worsen call your PCP, if no PCP go to Urgent Care Center or Emergency Room Smoking is Dangerous to Your Health. Avoid second hand smoke Call the 24-hour hour crisis hotline for domestic abuse at Jacqui Frederick [facility] March 20, 2017 11:39
[2017-03-20] MEDS: HEPARIN SODIUM - SQ 10,000 UNITS/ML VIAL SQ SCH (11:43)
[2017-03-20 12:00] VITALS: BP 164/67; PULSE 75; RESP 18; TEMP 96.4; O2SAT 99
[2017-03-20] MEDS ORDERED: Cefuroxime PO (12:57)
--- NOTE | 2017-03-20 13:13 | HHI.DS ---
Discharge Summary Admission Date March 17, 2017 at 11:25 Discharge Date: March 20, 2017 Admitting Diagnosis altered mental status, UTI (1) Altered mental status (2) UTI (urinary tract infection) (3) Scalp laceration (4) Atrial fibrillation (5) History of recent fall (6) Uncontrolled hypertension CBC/BMP: 03/20/17 0852 03/20/17 0852 Significant Findings Laboratory Tests Test 03/18/17 03/20/17 11:02 08:52 Red Blood Count 3.83 MIL/MM3 3.85 MIL/MM3 (4.00-5.30) (4.00-5.30) Hematocrit 34.9 % (35.0-46.0) Monocytes (%) (Auto) 9.3 % (0.0-8.0) Chloride Level 109 MEQ/L 115 MEQ/L (98-107) (98-107) Estimat Glomerular Filtration 83 ML/MIN (>89) 84 ML/MIN (>89) Rate Random Glucose 115 MG/DL (74-106) Sodium Level 148 MEQ/L (136-145) Imaging Last Impressions Head CT 03/17/17 0852 Signed Impressions: Service Date/Time: Friday, March 17, 2017 09:18 - CONCLUSION: 1. No acute hemorrhage or mass effect. 2. Old areas of encephalomalacia involving the upper lobes and left occipital lobes consistent with areas of old infarction. 3. Moderate to severe atrophic change. 4. Soft tissue swelling and skin luke over left occipital lobe with no evidence of fracture. José Antonio Price MD Chest X-Ray 03/17/17 0852 Signed Impressions: Service Date/Time: Friday, March 17, 2017 09:02 - CONCLUSION: No acute disease. José Antonio Price MD Brain MRI 03/17/17 0000 Signed Impressions: Service Date/Time: Friday, March 17, 2017 12:47 - CONCLUSION: 1. No acute hemorrhage or infarction. 2. There is an encephalomalacia consistent with remote insult. 3. Moderate atrophic change and chronic small vessel ischemic changes. José Antonio Price MD Hospital Course This is an 80-year-old female with history of dementia, atrial fibrillation, falls, previous subdural bleed secondary to fall, HTN. Pt. last admitted to this facility for fall after syncope in Oct. patient presented to the emergency room after she was noted altered. Patient brought in by caregivers. Patient had a fall 3 days ago and hit her head. She came to the emergency room, had CT of the head that was negative. She had luke applied and was discharged home. According to caregivers, patient had been extremely lethargic, she wasn' t moving very much and wasn't talking as much. Usually she is able to get up feed herself and can communicate her needs, although she doesn't engage in much conversation. There is no reported fever, no chills. Patient was unable to provide any history. She was oriented to self but otherwise doesn't know where she is. Her labs were completed in the emergency room was unremarkable. UTI was positive for moderate leukocyte esterase and bacteriuria. Blood pressure was uncontrolled, 190s. Patient was given a 500 cc bolus. Started on Rocephin. Blood pressure has come down to 163/70. She remains altered. Caregiver was at bedside providing most details. Patient was admitted for further evaluation and treatment. (1) Altered mental status (2) UTI (urinary tract infection) (3) Scalp laceration (4) Atrial fibrillation (5) History of recent fall (6) Uncontrolled hypertension During the course of the hospitalization, the following took place: 81-year-old elderly female with history of dementia, A. fib, previous falls with subdural bleed, syncopal episode, and NSVT. Patient brought into the emergency room for altered mental status. Patient was seen here in the emergency room 3 days ago after she had a fall and hit her head, had luke applied. Initial CT was negative. Patient brought back in for increased lethargy, was found with UTI in the emergency room. Alteration of mental status due to infection. -Continued Rocephin 1 g IV daily, + ecoli, changed to Ceftin PO Neuro checks-back to baseline, demented, more awake, oriented to self. Doesn't talk much -MRI brain negative. -ammonia, cortisol okay Eyes erythematous, draining. improved, no redness -monitored Recent fall with scalp laceration monitored wound -PT eval and tx Hypertension uncontrolled, improved Continue home medications continue clonidine when necessary systolic greater than 170, diastolic Dementia -Continued home meds History of paroxysmal A. fib and nonsustained VT, stable Continuous cardiac telemetry -Continue Lopressor 25 mg by mouth twice a day PT eval and tx -SNF recommended. Heparin for DVT prophylaxis CM for dc planning, POA agreed with SNF pt. back to baseline. stable for dc Discharged to SNF F/U pcp diet-heart healthy activity-as tolerated. Pt Condition on Discharge: Stable Discharge Disposition: Discharge to SNF Discharge Instructions DIET: Follow Instructions for: Heart Healthy Diet Activities you can perform: Weight Bearing as Addie Follow up Referrals: PCP Follow-up New Medications: ([Cefuroxime]) 250 MG TAB 250 MG PO Q12HR #10 Ref 0 TAB Continued Medications: Cholecalciferol (Vitamin D-1000) 1,000 Unit Tab 1000 UNITS PO DAILY Nutritional Supplement #1 Ref 0 BOTTLE Donepezil (Donepezil) 10 Mg Tab 10 MG PO HS Dementia #30 Ref 0 TAB Fluoxetine (Fluoxetine) 10 Mg Cap 10 MG PO DAILY #30 Ref 0 CAP Loratadine (Loratadine) 10 Mg Tab 10 MG PO DAILY Allergy Management Ref 0 TAB Memantine (Namenda) 10 Mg Tab 10 MG PO BID Alzheimer Disease #30 Ref 0 TAB Metoprolol Tartrate (Metoprolol Tartrate) 25 Mg Tab 25 MG PO BID #60 Ref 0 TAB Multiple Vitamins W/ Minerals (Centrum) 1 Tab 1 TAB PO DAILY Nutritional Supplement Ref 0 TAB Risperidone (Risperidone) 0.5 Mg Tab 0.5 MG PO HS #30 Ref 0 TAB Vitamin E (Alph-E) 400 Unit Cap 400 UNITS PO DAILY Jacqui Frederick March 20, 2017 13:13
--- NOTE | 2017-03-20 13:13 | HHI.PR ---
Subjective Remarks awake, smiles, doesn't talk much voice soft oriented to self follows simple commands c/o pain everywhere, unable to pinpoint no fever conn out, voiding okay Objective Objective Results - Vital Signs Date Time Temp Pulse Resp B/P Pulse Ox O2 Delivery O2 Flow Rate FiO2 03/20/17 10:16 68 03/20/17 08:00 96.6 69 20 176/73 99 03/20/17 04:00 96.4 66 20 153/67 97 03/20/17 00:00 97.5 76 18 143/57 96 03/19/17 20:00 96.6 92 20 138/58 96 03/19/17 18:00 135/65 03/19/17 16:10 95.8 76 16 184/72 96 I/O 03/19/17 03/19/17 03/19/17 03/20/17 03/20/17 03/20/17 06:59 14:59 22:59 06:59 14:59 22:59 Intake Total 60 ml 1667 ml Balance 60 ml 1667 ml Intake Oral 60 ml 240 ml IV Total 1427 ml # Voids 2 5 1 # Bowel Movements 1 0 1 Result Diagram: 03/20/1752 03/20/17851 Imaging Last Impressions Head CT 03/17/17851 Signed Impressions: Service Date/Time: Friday, March 17, 2017 09:18 - CONCLUSION: 1. No acute hemorrhage or mass effect. 2. Old areas of encephalomalacia involving the upper lobes and left occipital lobes consistent with areas of old infarction. 3. Moderate to severe atrophic change. 4. Soft tissue swelling and skin luke over left occipital lobe with no evidence of fracture. José Antonio Price MD Chest X-Ray 03/17/1752 Signed Impressions: Service Date/Time: Friday, March 17, 2017 09:02 - CONCLUSION: No acute disease. José Antonio Price MD Brain MRI 03/17/17 0000 Signed Impressions: Service Date/Time: Friday, March 17, 2017 12:47 - CONCLUSION: 1. No acute hemorrhage or infarction. 2. There is an encephalomalacia consistent with remote insult. 3. Moderate atrophic change and chronic small vessel ischemic changes. José Antonio Price MD Other Results Laboratory Tests Test 03/20/17 08:52 White Blood Count 6.3 Red Blood Count 3.85 Hemoglobin 12.1 Hematocrit 35.4 Mean Corpuscular Volume 92.1 Mean Corpuscular Hemoglobin 31.4 Mean Corpuscular Hemoglobin 34.1 Concent Red Cell Distribution Width 13.9 Platelet Count 161 Mean Platelet Volume 7.4 Sodium Level 148 Potassium Level 3.7 Chloride Level 115 Carbon Dioxide Level 25.2 Anion Gap 8 Blood Urea Nitrogen 18 Creatinine 0.67 Estimat Glomerular Filtration 84 Rate Random Glucose 80 Calcium Level 8.6 Date/Time Procedure Status Source Growth 03/17/17 09:50 Urine Culture - Final Complete Urine Catheterized Urine Escherichia Coli 03/17/17 09:00 Aerobic Blood Culture - Preliminary Resulted Blood Peripheral NO GROWTH IN 3 DAYS 03/17/17 09:00 Anaerobic Blood Culture - Preliminary Resulted Blood Peripheral NO GROWTH IN 3 DAYS ROS General: Other (unable to obtain ROS, demented ) Physical Exam Physical Exam PHYSICAL EXAMINATION GENERAL: This is a well-developed, well-nourished female who appears to be in no acute distress. She is alert and awake, []. HEAD: Normocephalic without any lesion or mass noted. Facial features appear symmetric. EYES: Perrla, Normal eye movement, [] Icterus. [] Conj congestion. OROPHARYNGEAL: Oropharynx without erythema or edema. MOUTH/THROAT: Tongue midline []. Buccal mucosa is moist []. NECK: Supple. No nuchal rigidity or lymphadenopathy. Trachea midline without deviation. Thyroid not palpable, no bruits appreciated. CARDIAC: Regular rhythm, regular rate, S1 and S2 are heard. Murmur []; no gallops or rubs. LUNGS: Clear to auscultation bilaterally. [] wheeze, [] rhonchi or [] rale. No use of accessory muscles on inspiration or expiration. ABDOMEN: Soft, nontender, no organomegaly or masses. Bowel sounds are heard in all four quadrants. No rebound. No guarding. EXTREMITIES: [] edema. Pulses equal bilateral. [] cyanosis. NEUROLOGICAL: Patient mood and affect appropriate. Cranial nerves II through XII grossly intact. Muscle strength 5/5 in the upper and lower extremities bilaterally. Deep tendon reflexes are 2+ in the upper and lower extremities bilaterally. SKIN:Warm and moist PSYCH: Mood and affect appropriate Urinary Catheter: No Vascular Central Line Catheter: No A/P Diagnosis: (1) Altered mental status (2) UTI (urinary tract infection) (3) Scalp laceration (4) Atrial fibrillation (5) History of recent fall (6) Uncontrolled hypertension Assessment and Plan 81-year-old elderly female with history of dementia, A. fib, previous falls with subdural bleed, syncopal episode, and NSVT. Patient brought into the emergency room for altered mental status. Patient was seen here in the emergency room 3 days ago after she had a fall and hit her head, had luke applied. Initial CT was negative. Patient brought back in for increased lethargy, was found with UTI in the emergency room. -Continue Rocephin 1 g IV daily, + ecoli, change to Ceftin Neuro checks-back to baseline, demented, more awake, oriented to self. Doesn't talk much -MRI brain negative. -ammonia, cortisol okay Eyes erythematous, draining. improved, no redness -monitor Recent fall with scalp laceration monitor wound -PT eval and tx Hypertension uncontrolled, improved Continue home medications continue clonidine when necessary systolic greater than 170, diastolic rhythm night Dementia -Continue home meds History of paroxysmal A. fib and nonsustained VT, stable Continuous cardiac telemetry -Continue Lopressor 25 mg by mouth twice a day PT eval and tx Heparin for DVT prophylaxis CM for dc planning, POA agreed with SNF pt. back to baseline. stable for dc Discharge to SNF F/U pcp diet-heart healthy activity-as tolerated. D/W RN D/W Dr. Goetz D/W pt. This patient was seen by myself and Dr. Goetz, this note is written on her behalf Discharge Planning 45 Problem Qualifiers (1) Altered mental status: Qualified Code: R40.0 - Somnolence (2) UTI (urinary tract infection): Qualified Code: N39.0 - Urinary tract infection without hematuria, site unspecified (3) Scalp laceration: Qualified Code: S01.01XD - Scalp laceration, subsequent encounter (4) Atrial fibrillation: Qualified Code: I48.91 - Atrial fibrillation, unspecified type Jacqui Frederick [facility] March 20, 2017 13:13
[2017-03-20] MEDS ORDERED: amLODIPine BESYLATE 5 MG TAB PO SCH (15:00)
[2017-03-20] MEDS ORDERED: CEFUROXIME AXETIL 250 MG TAB PO SCH (21:00)
== END 2017-03-20 16:07 | DRG 690 ==
LOC: NEPC 08:19 → NEDA 11:25 → N05B 14:37
PROVIDERS: ADMIT Internal Medicine; ATTEND Internal Medicine
DX: N39.0 Urinary tract infection, site not specified (principal); I47.2 Ventricular tachycardia; I48.0 Paroxysmal atrial fibrillation; G30.9 Alzheimer's disease, unspecified; I10 Essential (primary) hypertension; F02.80 Dementia in other diseases classified elsewhere, unspecified severity, without behavioral disturbance, psychotic disturbance, mood disturbance, and anxiety; R40.0 Somnolence; S01.01XA Laceration without foreign body of scalp, initial encounter; B96.20 Unspecified Escherichia coli [E. coli] as the cause of diseases classified elsewhere; W19.XXXA Unspecified fall, initial encounter; Y92.009 Unspecified place in unspecified non-institutional (private) residence as the place of occurrence of the external cause
CPT/HCPCS: 51702; 70450; 70551; 71010; 72125; 80048; 80053; 81001; 82140; 82533; 82550; 82948; 83605; 84443; 84484; 85025; 85027; 85610; 87040; 87077; 87086; 87186; 93005; 96360; J0696; J1644; J7030; J7040

== ENCOUNTER 2017-07-01 13:19 | Observation (INO) | payer MEDICARE, BC ==
[~2017-07-01] VITALS: Ht 162.6 cm; Wt 76.0 kg
[~2017-07-01 13:19] MED LIST changes: +Cefuroxime PO; -[UNRECOGNIZED DRUG - OTHER] EACH EYE
[2017-07-01 13:28] VITALS: BP 138/63; PULSE 78; RESP 17; TEMP 97.8; O2SAT 98
[2017-07-01 13:33] VITALS: RESP 17; O2SAT 97
[2017-07-01] MEDS ORDERED: ONDANSETRON HCL 4 MG/2 ML VIAL IV PUSH ONE (13:45)
[2017-07-01] MEDS ORDERED: SODIUM CHLORID 0.9% 500 ML INJ 500 ML IV ONE (13:45)
[2017-07-01] MEDS ORDERED: FLUO-1 PO (13:48)
[2017-07-01] MEDS ORDERED: AMLO5 PO (13:48)
[2017-07-01] MEDS ORDERED: DOXY100C PO (13:49)
--- NOTE | 2017-07-01 13:50 | PD ---
HPI Chief Complaint: Altered Mental Status Time Seen by Provider: 13:30 Travel History International Travel<30 days: No Contact w/Intl Traveler<30days: No Traveled to known affect area: No History of Present Illness HPI 81-year-old female patient brought in via EMS from home with complaint of lethargy and decreased mentation since Friday. She has also had nausea, vomiting, diarrhea since Friday. She has been afebrile though. She has a history of dementia and has a continuous caregiver that is with her in her home. Per EMS the patient's baseline is able to verbally communicate however confused. Patient is not communicating verbally at this time. She is moving all extremities spontaneously and to command. She is incontinent of urine stool at her baseline [facility] Past Medical History Alzheimer's Disease: Yes Asthma: No Blood Disorders: No Anxiety: No Depression: Yes Heart Rhythm Problems: No Cancer: No Cardiovascular Problems: Yes High Cholesterol: No Chemotherapy: No Chest Pain: No Congestive Heart Failure: No COPD: No Cerebrovascular Accident: No Dementia: Yes Diabetes: No Diminished Hearing: Yes Endocrine: No GERD: No Genitourinary: No Hiatal Hernia: No Hypertension: Yes Immune Disorder: No Kidney Stones: No Musculoskeletal: No Neurologic: Yes Psychiatric: Yes Reproductive: No Respiratory: No Immunizations Current: Yes Migraines: No Radiation Therapy: No Renal Failure: No Seizures: No Sickle Cell Disease: No Sleep Apnea: No Thyroid Disease: No Ulcer: No Menopausal: Yes Past Surgical History Abdominal Surgery: No Appendectomy: Yes Cardiac Surgery: Yes Cholecystectomy: Yes Ear Surgery: No Endocrine Surgery: No Eye Surgery: No Genitourinary Surgery: No Gynecologic Surgery: No Hysterectomy: Yes Oral Surgery: No Other Surgery: Yes Social History Alcohol Use: No Tobacco Use: No Substance Use: No Allergies-Medications (Allergen,Severity, Reaction): Coded Allergies: Sulfa (Sulfonamide Antibiotics) (Verified Allergy, Intermediate, hives, 07/01/17) diatrizoate meglumine (Verified Allergy, Intermediate, rash, 07/01/17) gadobenic acid (Verified Allergy, Intermediate, hives, 07/01/17) gadodiamide (Verified Allergy, Intermediate, hives, 07/01/17) tetanus toxoid, adsorbed (Verified Allergy, Intermediate, rash, 07/01/17) gadoteridol (Verified Allergy, Mild, hives, 07/01/17) iodixanol (Verified Allergy, Mild, hives, 07/01/17) iohexol (Verified Allergy, Mild, hives, 07/01/17) Reported Meds & Prescriptions Reported Meds & Active Scripts Active Reported Artificials Tears Drops (Dextran 70/Hypromellose) 30 Ml Drops 1 Drop EACH EYE BID Doxycycline Hyclate 100 Mg Cap 100 Mg PO BID Norvasc (Amlodipine Besylate) 5 Mg Tab 5 Mg PO DAILY Prozac (Fluoxetine HCl) 10 Mg Cap 10 Mg PO DAILY Risperidone 0.5 Mg Tab 1 Mg PO HS Vitamin D-1000 (Cholecalciferol) 1,000 Unit Tab 1,000 Units PO DAILY Metoprolol Tartrate 25 Mg Tab 25 Mg PO BID Review of Systems ROS Limitations: Clinical Condition, Altered Mental Status, Poor Historian Except as stated in HPI: all other systems reviewed are Neg Physical Exam Exam Limitations: Clinical Condition, Altered Mental Status, Poor Historian Narrative GENERAL: Well-nourished well-developed 81-year-old female brought in via EMS with complaint of increasing confusion, lethargy, nausea, vomiting and diarrhea 4 days SKIN: Focused skin assessment pale, warm/dry. HEAD: Atraumatic. Normocephalic. EYES: Pupils equal and round. No scleral icterus. No injection or drainage. ENT: No nasal bleeding or discharge. Mucous membranes pink and moist. NECK: Trachea midline. No JVD. CARDIOVASCULAR: Regular rate and rhythm. No murmur appreciated. RESPIRATORY: No accessory muscle use. Clear to auscultation. Breath sounds equal bilaterally. GASTROINTESTINAL: Abdomen soft, non-tender, nondistended. Hepatic and splenic margins not palpable. MUSCULOSKELETAL: No obvious deformities. No clubbing. No cyanosis. No edema. NEUROLOGICAL: Lethargic but easily awoken and alert when awake. No obvious cranial nerve deficits. Not verbalizing at this time. Data Data Last Documented VS Vital Signs Date Time Temp Pulse Resp B/P (MAP) Pulse Ox O2 Delivery O2 Flow Rate FiO2 07/01/17 15:24 98.1 70 17 148/63 (91) 98 Room Air Orders Orders Electrocardiogram (07/01/17 13:30) Complete Blood Count With Diff (07/01/17 13:30) Comprehensive Metabolic Panel (07/01/17 13:30) Creatine Kinase (Cpk) (07/01/17 13:30) Prothrombin Time / Inr (Pt) (07/01/17 13:30) Act Partial Throm Time (Ptt) (07/01/17 13:30) Troponin I (07/01/17 13:30) Urinalysis - C+S If Indicated (07/01/17 13:30) Lactic Acid Sepsis Protocol (07/01/17 13:30) Blood Culture (07/01/17 13:30) Chest, Single Ap (07/01/17 13:30) Ct Brain W/O Iv Contrast(Rout) (07/01/17 13:30) Blood Glucose (07/01/17 13:30) Ecg Monitoring (07/01/17 13:30) Iv Access Insert/Monitor (07/01/17 13:30) Cath For Specimen (07/01/17 13:30) Oximetry (07/01/17 13:30) Oxygen Administration (07/01/17 13:30) Sodium Chlorid 0.9% 500 Ml Inj (Ns 500 M (07/01/17 13:45) Ondansetron Inj (Zofran Inj) (07/01/17 13:45) Urine Culture (07/01/17 13:45) Ceftriaxone Inj (Rocephin Inj) (07/01/17 15:15) Labs Laboratory Tests Test 07/01/17 13:45 White Blood Count 10.0 TH/MM3 Red Blood Count 3.55 MIL/MM3 Hemoglobin 10.9 GM/DL Hematocrit 32.4 % Mean Corpuscular Volume 91.3 FL Mean Corpuscular Hemoglobin 30.8 PG Mean Corpuscular Hemoglobin Concent 33.7 % Red Cell Distribution Width 14.7 % Platelet Count 161 TH/MM3 Mean Platelet Volume 7.5 FL Neutrophils (%) (Auto) 41.1 % Lymphocytes (%) (Auto) 42.6 % Monocytes (%) (Auto) 10.7 % Eosinophils (%) (Auto) 5.2 % Basophils (%) (Auto) 0.4 % Neutrophils # (Auto) 4.1 TH/MM3 Lymphocytes # (Auto) 4.3 TH/MM3 Monocytes # (Auto) 1.1 TH/MM3 Eosinophils # (Auto) 0.5 TH/MM3 Basophils # (Auto) 0.0 TH/MM3 CBC Comment AUTO DIFF Differential Comment AUTO DIFF CONFIRMED Platelet Estimate NORMAL Platelet Morphology Comment NORMAL Red Cell Morphology Comment NORMAL Prothrombin Time 10.9 SEC Prothromb Time International Ratio 1.0 RATIO Activated Partial Thromboplast Time 26.8 SEC Urine Color YELLOW Urine Turbidity HAZY Urine pH 6.0 Urine Specific [place] 1.017 Urine Protein 30 mg/dL Urine Glucose (UA) NEG mg/dL Urine Ketones NEG mg/dL Urine Occult Blood MOD Urine Nitrite NEG Urine Bilirubin NEG Urine Urobilinogen LESS THAN 2.0 MG/DL Urine Leukocyte Esterase LARGE Urine RBC 72 /hpf Urine WBC 99 /hpf Urine Bacteria MANY /hpf Urine Mucus FEW /lpf Microscopic Urinalysis Comment CATH-CULTURE IND Blood Urea Nitrogen 24 MG/DL Creatinine 0.75 MG/DL Random Glucose 75 MG/DL Total Protein 6.4 GM/DL Albumin 2.6 GM/DL Calcium Level 8.8 MG/DL Alkaline Phosphatase 92 U/L Aspartate Amino Transf (AST/SGOT) 12 U/L Alanine Aminotransferase (ALT/SGPT) 17 U/L Total Bilirubin 0.2 MG/DL Sodium Level 149 MEQ/L Potassium Level 3.5 MEQ/L Chloride Level 114 MEQ/L Carbon Dioxide Level 27.7 MEQ/L Anion Gap 7 MEQ/L Estimat Glomerular Filtration Rate 74 ML/MIN Lactic Acid Level 1.0 mmol/L Total Creatine Kinase 30 U/L Troponin I LESS THAN 0.02 NG/ML MDM Medical Decision Making Medical Screen Exam Complete: Yes Emergency Medical Condition: Yes Medical Record Reviewed: Yes Interpretation(s) Laboratory Tests Test 07/01/17 13:45 White Blood Count 10.0 TH/MM3 Red Blood Count 3.55 MIL/MM3 Hemoglobin 10.9 GM/DL Hematocrit 32.4 % Mean Corpuscular Volume 91.3 FL Mean Corpuscular Hemoglobin 30.8 PG Mean Corpuscular Hemoglobin Concent 33.7 % Red Cell Distribution Width 14.7 % Platelet Count 161 TH/MM3 Mean Platelet Volume 7.5 FL Neutrophils (%) (Auto) 41.1 % Lymphocytes (%) (Auto) 42.6 % Monocytes (%) (Auto) 10.7 % Eosinophils (%) (Auto) 5.2 % Basophils (%) (Auto) 0.4 % Neutrophils # (Auto) 4.1 TH/MM3 Lymphocytes # (Auto) 4.3 TH/MM3 Monocytes # (Auto) 1.1 TH/MM3 Eosinophils # (Auto) 0.5 TH/MM3 Basophils # (Auto) 0.0 TH/MM3 CBC Comment AUTO DIFF Differential Comment AUTO DIFF CONFIRMED Platelet Estimate NORMAL Platelet Morphology Comment NORMAL Red Cell Morphology Comment NORMAL Prothrombin Time 10.9 SEC Prothromb Time International Ratio 1.0 RATIO Activated Partial Thromboplast Time 26.8 SEC Urine Color YELLOW Urine Turbidity HAZY Urine pH 6.0 Urine Specific [place] 1.017 Urine Protein 30 mg/dL Urine Glucose (UA) NEG mg/dL Urine Ketones NEG mg/dL Urine Occult Blood MOD Urine Nitrite NEG Urine Bilirubin NEG Urine Urobilinogen LESS THAN 2.0 MG/DL Urine Leukocyte Esterase LARGE Urine RBC 72 /hpf Urine WBC 99 /hpf Urine Bacteria MANY /hpf Urine Mucus FEW /lpf Microscopic Urinalysis Comment CATH-CULTURE IND Blood Urea Nitrogen 24 MG/DL Creatinine 0.75 MG/DL Random Glucose 75 MG/DL Total Protein 6.4 GM/DL Albumin 2.6 GM/DL Calcium Level 8.8 MG/DL Alkaline Phosphatase 92 U/L Aspartate Amino Transf (AST/SGOT) 12 U/L Alanine Aminotransferase (ALT/SGPT) 17 U/L Total Bilirubin 0.2 MG/DL Sodium Level 149 MEQ/L Potassium Level 3.5 MEQ/L Chloride Level 114 MEQ/L Carbon Dioxide Level 27.7 MEQ/L Anion Gap 7 MEQ/L Estimat Glomerular Filtration Rate 74 ML/MIN Lactic Acid Level 1.0 mmol/L Total Creatine Kinase 30 U/L Troponin I LESS THAN 0.02 NG/ML Differential Diagnosis EMS versus dementia versus electrolyte imbalance versus gastroenteritis versus CVA/TIA versus UTI versus pyelonephritis Narrative Course 81-year-old female brought in via EMS from home for altered mental status. She has a history of dementia. She has a caregiver that stays with her continuously at her house. Since Friday there has been increasing lethargy, nausea, vomiting and diarrhea, however she has remained afebrile. Patient is not verbally communicating today. However she communicates verbally but is confused at her baseline. Patient is moving all extremities spontaneously and to command. EKG, CBC, CMP, troponin and CK, PT INR, UA, lactic acid, blood cultures 2, chest x-ray, Brain CT ordered and pending EKG sinus rhythm with first-degree AV block heart rate 71, CBC hemoglobin 10.9 otherwise shows no acute abnormality, CMP shows no acute abnormality, TROP less than 0.02, CK within normal limits at 30, PT/INR shows no acute abnormality, U/ A shows many bacteria, high WBCs and RBCs and large amount of leukocyte esterase culture indicated and pending, LACTIC within normal limits at 1, BC in micro-and pending CXR no evidence of acute cardiopulmonary disease BRAIN CT shows no acute intracranial abnormality, multifocal old infarct ranges and chronic white matter changes and atrophy S paged for admission for UTI and AMS. Dr. De Leon called and accepted admission for 23hr observation. Diagnosis Primary Impression: UTI (urinary tract infection) Qualified Codes: N39.0 - Urinary tract infection, site not specified; R31.9 - Hematuria, unspecified Additional Impressions: Altered mental status Qualified Codes: R41.82 - Altered mental status, unspecified Dehydration Dementia Qualified Codes: F03.90 - Unspecified dementia without behavioral disturbance Admitting Information Admitting Physician Requests: Observation Hannah Dey Jul 01, 2017 13:50
[2017-07-01] MEDS ORDERED: ARTISOL EACH EYE (13:51)
--- NOTE | 2017-07-01 14:08 | RADRPT ---
EXAM DATE/TIME: 07/01/2017 13:44 [facility] COMPARISON: CHEST SINGLE AP, March 17, 2017, 9:02. INDICATIONS : Syncope. Per caregiver, patient has had a cough, high temperature. MEDICAL HISTORY : Hypertension. Dementia. SURGICAL HISTORY : Cholecystectomy. ENCOUNTER: Initial ACUITY: 4 - 6 days PAIN SCORE: Non-responsive. LOCATION: Bilateral chest FINDINGS: A single view of the chest demonstrates the lungs to be symmetrically aerated without evidence of mas s, infiltrate or effusion. Mild, symmetric biapical pleural/parenchymal scarring again noted. The ca rdiomediastinal contours are unremarkable. Osseous structures are intact. CONCLUSION: No evidence of acute cardiopulmonary disease. Jamarcus Davis MD on July 01, 2017 at 14:06 Board Certified Radiologist. This report was verified electronically.
[2017-07-01 14:09] LABS: APTT (PATIENT) 26.8 SEC (24.3-30.1); PROTHROMBIN TIME - PATIENT 10.9 SEC (9.8-11.6)
[2017-07-01 14:10] LABS: BACTERIA, URINE MANY /hpf; BLOOD, URINE MOD (NEG); COMMENT (UR) CATH-CULTURE IND; CULTURE IF INDICATED CATH CULTURE IND; GLUCOSE,URINE NEG (NEG); KETONE, URINE NEG (NEG); MUCUS URINE FEW /lpf (OCC); NITRITE,URINE NEG (NEG); URINE COLOR YELLOW (YELLW/STRAW)
[2017-07-01 14:11] LABS: AUTOMATED NEUTROPHIL # 4.1 TH/MM3 (1.8-7.7); BASOPHIL % 0.4 % (0.0-2.0); EOSINOPHIL # 0.5 TH/MM3 (0-0.4); EOSINOPHIL % 5.2 % (0.0-4.0); HEMATOCRIT 32.4 % (35.0-46.0); LYMPH % 42.6 % (9.0-44.0); LYMPHOCYTE # 4.3 TH/MM3 (1.0-4.8); MEAN CELL VOLUME 91.3 FL (80.0-100.0); MEAN CORPUSCULAR HEMOGLOBIN 30.8 PG (27.0-34.0); MEAN CORPUSCULAR HGB CONC 33.7 % (32.0-36.0); MONO % 10.7 % (0.0-8.0); NEUT % 41.1 % (16.0-70.0); PLATELET COUNT 161 TH/MM3 (150-450); RED BLOOD COUNT 3.55 MIL/MM3 (4.00-5.30); RED CELL DISTRIBUTION WIDTH 14.7 % (11.6-17.2)
[2017-07-01 14:22] LABS: ALT (GPT) 17 U/L (10-53); ANION GAP 7 MEQ/L (5-15); AST (GOT) 12 U/L (15-37); BICARBONATE 27.7 MEQ/L (21.0-32.0); BLOOD UREA NITROGEN 24 MG/DL (7-18); CHLORIDE 114 MEQ/L (98-107); GLOMERULAR FILTRATION RATE 74 ML/MIN (>89); POTASSIUM 3.5 MEQ/L (3.5-5.1); SODIUM (NA) 149 MEQ/L (136-145)
[2017-07-01 14:26] LABS: ALKALINE PHOSPHATASE 92 U/L (45-117); TOTAL BILIRUBIN ADULT 0.2 MG/DL (0.2-1.0)
[2017-07-01 14:27] LABS: CREATINE KINASE 30 U/L (26-192)
[2017-07-01 14:40] LABS: HEMO FLAGS AUTO DIFF
[2017-07-01 14:42] LABS: PLATELET ESTIMATE SMEAR NORMAL (NORMAL); PLATELET MORPHOLOGY NORMAL (NORMAL); SCAN/DIFF AUTO DIFF CONFIRMED
--- NOTE | 2017-07-01 15:03 | RADRPT ---
EXAM DATE/TIME: 07/01/2017 14:26 [place] COMPARISON: CT BRAIN W/O CONTRAST, March 17, 2017, 9:18. INDICATIONS : Altered mental status. RADIATION DOSE: 56.39 CTDIvol (mGy) MEDICAL HISTORY : Dementia. Alzheimer's. Hypertension. SURGICAL HISTORY : None. ENCOUNTER: Initial ACUITY: 1 day PAIN SCALE: 0/10 LOCATION: cranial TECHNIQUE: Multiple contiguous axial images were obtained of the head. Using automated exposure control and adj ustment of the mA and/or kV according to patient size, radiation dose was kept as low as reasonably a chievable to obtain optimal diagnostic quality images. DICOM format image data is available electro nically for review and comparison. FINDINGS: CEREBRUM: The ventricles are normal for age. No evidence of midline shift, mass lesion, hemorrhage or acute in farction. No extra-axial fluid collections are seen. Chronic low attenuation again seen in the periv entricular white matter. Areas of encephalomalacia again seen in the bilateral temporal and right occ ipital lobes. POSTERIOR FOSSA: The cerebellum and brainstem are intact. The 4th ventricle is midline. The cerebellopontine angle i s unremarkable. EXTRACRANIAL: The visualized portion of the orbits is intact. SKULL: The calvaria is intact. No evidence of skull fracture. CONCLUSION: 1. No bleed or other acute intracranial abnormality. 2. 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 No evidence of an acute ischemic event. 3. Chronic white matter changes and atrophy. Jamarcus Davis MD on July 01, 2017 at 15:00 Board Certified Radiologist. This report was verified electronically.
[2017-07-01] MEDS ORDERED: cefTRIAXone INJ 1,000 MG in SODIUM CHLORIDE 0.9% INJ 100 ML IV ONE (15:15)
[2017-07-01 15:24] VITALS: BP 148/63; PULSE 70; RESP 17; TEMP 98.1; O2SAT 98
[2017-07-01] MEDS ORDERED: ACETAMINOPHEN 325 MG TAB PO PRN (16:30)
[2017-07-01] MEDS ORDERED: SODIUM CHLORIDE 0.9% FLUSH 10 ML FLUSH IV FLUSH PRN (16:30)
[2017-07-01] MEDS ORDERED: NALOXONE HCL 0.4 MG/ML AMP IV PRN (16:30)
[2017-07-01] MEDS ORDERED: ONDANSETRON HCL 4 MG/2 ML VIAL IVP PRN (16:30)
[2017-07-01 16:55] VITALS: BP 138/62; PULSE 93; RESP 16; TEMP 98; O2SAT 98
[2017-07-01] MEDS: SODIUM CHLOR 0.45% 1000 ML INJ 1,000 ML IV SCH (17:00)
--- NOTE | 2017-07-01 17:44 | HHI.HP ---
HPI Service [facility] Primary Care Physician Jose Alberto Richard MD Admission Diagnosis UTI/AMS Diagnoses: (1) Anemia Diagnosis: Secondary (2) Hypernatremia Diagnosis: Principal (3) Dementia Diagnosis: Secondary (4) Dehydration Diagnosis: Principal (5) UTI (urinary tract infection) Diagnosis: Principal (6) Altered mental status Diagnosis: Secondary (Victoria Walker) Travel History International Travel<30 Days: No Contact w/Intl Traveler <30 Da: No Traveled to Known Affected Are: No (Victoria Walker) Sepsis Criteria Sepsis Criteria (SIRS+source): Infect source susp/known (Victoria Walker) Review of Systems ROS Limitations: Altered Mental Status, Poor Historian, Other (not speaking but nodds head and smiled X 1) Eyes: COMPLAINS OF: Eye inflammation (denies any pain) (Victoria Walker) Past Family Social History Past Medical History Per the record Alzheimers Dementia CVD [place] Depression HTN Past Surgical History Appendectomy Cardiac surgery GB Hysterectomy Reported Medications Norvasc Prozac Vitamin D Lopressor Doxycycline (Victoria Walker) Allergies: Coded Allergies: Sulfa (Sulfonamide Antibiotics) (Verified Allergy, Intermediate, hives, 07/01/17) diatrizoate meglumine (Verified Allergy, Intermediate, rash, 07/01/17) gadobenic acid (Verified Allergy, Intermediate, hives, 07/01/17) gadodiamide (Verified Allergy, Intermediate, hives, 07/01/17) tetanus toxoid, adsorbed (Verified Allergy, Intermediate, rash, 07/01/17) gadoteridol (Verified Allergy, Mild, hives, 07/01/17) iodixanol (Verified Allergy, Mild, hives, 07/01/17) iohexol (Verified Allergy, Mild, hives, 07/01/17) Active Ordered Medications IVF, Antibiotics initiated Family History NA Social History No known ETOH, tobacco or drugs, per the record lives alone with caregiver (Victoria Walker) Physical Exam Vital Signs Vital Signs Date Time Temp Pulse Resp B/P (MAP) Pulse Ox O2 Delivery O2 Flow Rate FiO2 07/01/17 16:55 98.0 93 16 138/62 (87) 98 Room Air 07/01/17 15:24 98.1 70 17 148/63 (91) 98 Room Air 07/01/17 13:33 98 Room Air 07/01/17 13:33 17 97 Room Air 07/01/17 13:30 78 17 98 Room Air 07/01/17 13:28 97.8 78 17 138/63 (88) 98 Physical Exam GENERAL: This is a elderly, patient resting on the stretcher, No acute facial grimmace or SOB SKIN: No rashes, Cool and dry. HEAD: Atraumatic. Normocephalic. EYES: Pupils equal round and reactive. Mild sclera erythema, No drainage. ENT: Nose without bleeding, purulent drainage, Airway patent. NECK: Trachea midline. No JVD or lymphadenopathy. Supple, CARDIOVASCULAR: Regular rate and rhythm without murmurs, gallops, or rubs. RESPIRATORY: Clear to auscultation. Breath sounds equal bilaterally. No wheezes , rales, or rhonchi. Cough with swallow GASTROINTESTINAL: Abdomen soft, non-tender, nondistended. No guarding. MUSCULOSKELETAL: Extremities without clubbing, cyanosis, or edema. No joint tenderness, effusion, or edema noted. No calf tenderness. Negative Homans sign bilaterally. NEUROLOGICAL: Awake and alert. nonverbal, shakes head yes, or no to simple questions. Laboratory Laboratory Tests Test 07/01/17 13:45 White Blood Count 10.0 Red Blood Count 3.55 Hemoglobin 10.9 Hematocrit 32.4 Mean Corpuscular Volume 91.3 Mean Corpuscular Hemoglobin 30.8 Mean Corpuscular Hemoglobin Concent 33.7 Red Cell Distribution Width 14.7 Platelet Count 161 Mean Platelet Volume 7.5 Neutrophils (%) (Auto) 41.1 Lymphocytes (%) (Auto) 42.6 Monocytes (%) (Auto) 10.7 Eosinophils (%) (Auto) 5.2 Basophils (%) (Auto) 0.4 Neutrophils # (Auto) 4.1 Lymphocytes # (Auto) 4.3 Monocytes # (Auto) 1.1 Eosinophils # (Auto) 0.5 Basophils # (Auto) 0.0 CBC Comment AUTO DIFF Differential Comment AUTO DIFF CONFIRMED Platelet Estimate NORMAL Platelet Morphology Comment NORMAL Red Cell Morphology Comment NORMAL Prothrombin Time 10.9 Prothromb Time International Ratio 1.0 Activated Partial Thromboplast Time 26.8 Urine Color YELLOW Urine Turbidity HAZY Urine pH 6.0 Urine Specific [place] 1.017 Urine Protein 30 Urine Glucose (UA) NEG Urine Ketones NEG Urine Occult Blood MOD Urine Nitrite NEG Urine Bilirubin NEG Urine Urobilinogen LESS THAN 2.0 Urine Leukocyte Esterase LARGE Urine RBC 72 Urine WBC 99 Urine Bacteria MANY Urine Mucus FEW Microscopic Urinalysis Comment CATH-CULTURE IND Blood Urea Nitrogen 24 Creatinine 0.75 Random Glucose 75 Total Protein 6.4 Albumin 2.6 Calcium Level 8.8 Alkaline Phosphatase 92 Aspartate Amino Transf (AST/SGOT) 12 Alanine Aminotransferase (ALT/SGPT) 17 Total Bilirubin 0.2 Sodium Level 149 Potassium Level 3.5 Chloride Level 114 Carbon Dioxide Level 27.7 Anion Gap 7 Estimat Glomerular Filtration Rate 74 Lactic Acid Level 1.0 Total Creatine Kinase 30 Troponin I LESS THAN 0.02 Date/Time Source Procedure Growth Status 07/01/17 13:45 Blood Peripheral Aerobic Blood Culture Pending Received 07/01/17 13:45 Blood Peripheral Anaerobic Blood Culture Pending Received 07/01/17 13:45 Urine Catheterized Urine Urine Culture Pending Received (Victoria Walker) Result Diagram: 07/01/17 1345 07/01/17 1345 Imaging Last Impressions Head CT 07/01/17 1330 Signed Impressions: Service Date/Time: Saturday, July 01, 2017 14:26 - CONCLUSION: 1. No bleed or other acute intracranial abnormality. 2. 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 No evidence of an acute ischemic event. 3. Chronic white matter changes and atrophy. Jamarcus Davis MD Chest X-Ray 07/01/17 1330 Signed Impressions: Service Date/Time: Saturday, July 01, 2017 13:44 - CONCLUSION: No evidence of acute cardiopulmonary disease. Jamarcus Davis MD Course Hydration Empiric antibiotics Monitor AMS vital signs (Victoria Walker) Septic Shock Reassessment Heart: Regular rate and rhythm Lungs: Clear Skin: Warm, Dry Peripheral Pulses: Bounding Right Radial Bounding Left Radial Bounding Right Popliteal Bounding Left Popliteal Bounding Right Dorsalis Pedis Bounding Left Dorsalis Pedis Bounding Right Posterior Tibial Bounding Left Posterior Tibial Capillary Refill: Brisk (Victoria Walker) Caprini VTE Risk Assessment Caprini VTE Risk Assessment: No/Low Risk (score <= 1) Caprini Risk Assessment Model Point Value = 1 Point Value = 2 Point Value = 3 Point Value = 5 Age 41-60 Minor surgery BMI > 25 kg/m2 Swollen legs Varicose veins or History of unexplained or recurrent spontaneous Oral contraceptives or hormone replacement Sepsis (< 1 month) Serious lung disease, including pneumonia (< 1 month) Abnormal pulmonary function Acute myocardial infarction Congestive heart failure (< 1 month) History of inflammatory bowel disease Medical patient at bed rest Age 61-74 Arthroscopic surgery Major open surgery (> 45 min) Laparoscopic surgery (> 45 min) Malignancy Confined to bed (> 72 hours) Immobilizing plaster cast Central venous access Age >= 75 History of VTE Family history of VTE Factor V Leiden Prothrombin [id number] Lupus anticoagulant Anticardiolipin antibodies Elevated serum homocysteine Heparin-induced thrombocytopenia Other congenital or acquired thrombophilia Stroke (< 1 month) Elective arthroplasty Hip, pelvis, or leg fracture Acute spinal cord injury (< 1 month) Prophylaxis Regimen Total Risk Factor Score Risk Level Prophylaxis Regimen 0-1 Low Early ambulation 2 Moderate Order ONE of the following: *Sequential Compression Device (SCD) *Heparin 5000 units SQ BID 3-4 Higher Order ONE of the following medications: *Heparin 5000 units SQ TID *Enoxaparin/Lovenox 40 mg SQ daily (WT < 150 kg, CrCl > 30 mL/min) *Enoxaparin/Lovenox 30 mg SQ daily (WT < 150 kg, CrCl > 10-29 mL/min) *Enoxaparin/Lovenox 30 mg SQ BID (WT < 150 kg, CrCl > 30 mL/min) AND/OR *Sequential Compression Device (SCD) 5 or more Highest Order ONE of the following medications: *Heparin 5000 units SQ TID (Preferred with Epidurals) *Enoxaparin/Lovenox 40 mg SQ daily (WT < 150 kg, CrCl > 30 mL/min) *Enoxaparin/Lovenox 30 mg SQ daily (WT < 150 kg, CrCl > 10-29 mL/min) *Enoxaparin/Lovenox 30 mg SQ BID (WT < 150 kg, CrCl > 30 mL/min) AND *Sequential Compression Device (SCD) (Victoria Walker) Assessment and Plan Assessment and Plan UTI, R/O Urosepsis Hydration, empiric IV antibiotics, monitor intake and output, vital signs q4hr. Treat any abnormals, monitor fever., labs Anemia monitor labs, no active blood loss noted, probable secondary to chronic disease Hypernatremia monitor labs, recheck in am Acute Kidney Injury Continue hydration, monitor labs, Reported nausea and vomiting, diarrhea, currently taking PO fluids, cough noted, Will have speech eval swallow, appears delayed Increased AMS, not speaking, but nodds to simple questions, OOB with help only Hx Alzheimers Dementia Medical management, speech eval, PT eval for tomorrow Monitor bowel regimin DVT moniotring, Heparin SC PUD monitoring, Pepcid Discussed with Dr. De Leon Discussed With: Nurse, Other (Dr. De Leon, seen on his behalf) (Victoria Walker) Assessment and Plan pt seen and examined with pulmonary care nurse at bedside inER chart reviwed dw pt's pulmonary care nurse agree with above plann of care as dw stamper blocker dw rn in ER (Dea De Leon MD) Problem Qualifiers (1) Dementia: Qualified Codes: F03.90 - Unspecified dementia without behavioral disturbance (2) UTI (urinary tract infection): Qualified Codes: N39.0 - Urinary tract infection, site not specified; R31.9 - Hematuria, unspecified (3) Altered mental status: Qualified Codes: R41.82 - Altered mental status, unspecified Victoria Walker Jul 01, 2017 17:44 Dea De Leon MD Jul 01, 2017 21:26
[2017-07-01 18:35] VITALS: BP 126/81; TEMP 97.8
[2017-07-01 20:32] VITALS: BP 135/60; PULSE 79; RESP 18; TEMP 98.2; O2SAT 96
[2017-07-01] MEDS ORDERED: HYPROMELLOSE EACH EYE SCH (21:00)
[2017-07-01] MEDS ORDERED: DEXTRAN EACH EYE SCH (21:00)
[2017-07-01] MEDS: FAMOTIDINE 20 MG TAB PO SCH (22:14)
[2017-07-01] MEDS: METOPROLOL TARTRATE 25 MG TAB PO SCH (22:14)
[2017-07-01] MEDS: ARTIFICIAL TEARS OPTH SOLN 15 ML BTL EACH EYE SCH (22:15)
[2017-07-01] MEDS: HEPARIN SODIUM - SQ 10,000 UNITS/ML VIAL SQ SCH (22:15)
[2017-07-01] MEDS: SODIUM CHLORIDE 0.9% FLUSH 10 ML FLUSH IV FLUSH SCH (22:19)
[2017-07-02] VITALS (8 sets, daily range): BP systolic 114–150; BP diastolic 57–67; PULSE 74–88; RESP 16–18; TEMP 97.9–98.8; O2SAT 94–98
[2017-07-02] MEDS: SODIUM CHLOR 0.45% 1000 ML INJ 1,000 ML IV SCH ×3 (06:20→19:40)
[2017-07-02] MEDS: HEPARIN SODIUM - SQ 10,000 UNITS/ML VIAL SQ SCH ×2 (08:00→20:41)
[2017-07-02 08:55] LABS: AUTOMATED NEUTROPHIL # 2.9 TH/MM3 (1.8-7.7); BASOPHIL % 0.3 % (0.0-2.0); EOSINOPHIL # 0.3 TH/MM3 (0-0.4); EOSINOPHIL % 4.7 % (0.0-4.0); HEMATOCRIT 34.7 % (35.0-46.0); HEMO FLAGS DIFF FINAL; LYMPH % 43.8 % (9.0-44.0); LYMPHOCYTE # 2.9 TH/MM3 (1.0-4.8); MEAN CELL VOLUME 92.3 FL (80.0-100.0); MEAN CORPUSCULAR HGB CONC 33.5 % (32.0-36.0); MONO % 8.4 % (0.0-8.0); NEUT % 42.8 % (16.0-70.0); PLATELET COUNT 161 TH/MM3 (150-450); RED BLOOD COUNT 3.76 MIL/MM3 (4.00-5.30); RED CELL DISTRIBUTION WIDTH 14.8 % (11.6-17.2); WHITE BLOOD COUNT 6.7 TH/MM3 (4.0-11.0)
[2017-07-02] MEDS: METOPROLOL TARTRATE 25 MG TAB PO SCH ×2 (09:00→20:41)
[2017-07-02] MEDS: CHOLECALCIFEROL (VIT D3) 1000 UNIT TAB PO SCH (09:00)
[2017-07-02] MEDS: amLODIPine BESYLATE 5 MG TAB PO SCH (09:00)
[2017-07-02] MEDS: ARTIFICIAL TEARS OPTH SOLN 15 ML BTL EACH EYE SCH ×2 (09:00→20:41)
[2017-07-02] MEDS: SODIUM CHLORIDE 0.9% FLUSH 10 ML FLUSH IV FLUSH SCH ×2 (09:00→20:41)
--- NOTE | 2017-07-02 09:04 | HHI.PR ---
Subjective Subjective Remarks Resting in the bed Eyes open awake Sitter in room states patient is verbal but very minimal amounts Currently not speaking Color is pale Special Education Classroom Aide is granddaughter who is in [place] at [facility], patient has sitters pretty much around the clock while at home (Victoria Walker) Review of Systems Constitutional Constitutional Remarks Unable to assess ROS with patient (Victoria Walker) Vitals/Results Vital Signs Vital Signs Date Time Temp Pulse Resp B/P (MAP) Pulse Ox O2 Delivery O2 Flow Rate FiO2 07/02/17 07:40 98.7 78 18 150/67 (94) 97 07/02/17 03:29 98.2 76 18 114/57 (76) 96 07/02/17 00:33 97.9 74 18 123/58 (79) 96 07/01/17 20:32 98.2 79 18 135/60 (85) 96 07/01/17 18:35 97.8 72 16 126/81 (96) 99 07/01/17 16:55 98.0 93 16 138/62 (87) 98 Room Air 07/01/17 15:24 98.1 70 17 148/63 (91) 98 Room Air 07/01/17 13:33 98 Room Air 07/01/17 13:33 17 97 Room Air 07/01/17 13:30 78 17 98 Room Air 07/01/17 13:28 97.8 78 17 138/63 (88) 98 (Victoria Walker) CBC/BMP: 07/02/17 0734 07/01/17 1345 Lab Results Laboratory Tests Test 07/01/17 13:45 07/02/17 07:34 White Blood Count 10.0 TH/MM3 6.7 TH/MM3 Red Blood Count 3.55 MIL/MM3 3.76 MIL/MM3 Hemoglobin 10.9 GM/DL 11.6 GM/DL Hematocrit 32.4 % 34.7 % Mean Corpuscular Volume 91.3 FL 92.3 FL Mean Corpuscular Hemoglobin 30.8 PG 31.0 PG Mean Corpuscular Hemoglobin Concent 33.7 % 33.5 % Red Cell Distribution Width 14.7 % 14.8 % Platelet Count 161 TH/MM3 161 TH/MM3 Mean Platelet Volume 7.5 FL 7.2 FL Neutrophils (%) (Auto) 41.1 % 42.8 % Lymphocytes (%) (Auto) 42.6 % 43.8 % Monocytes (%) (Auto) 10.7 % 8.4 % Eosinophils (%) (Auto) 5.2 % 4.7 % Basophils (%) (Auto) 0.4 % 0.3 % Neutrophils # (Auto) 4.1 TH/MM3 2.9 TH/MM3 Lymphocytes # (Auto) 4.3 TH/MM3 2.9 TH/MM3 Monocytes # (Auto) 1.1 TH/MM3 0.6 TH/MM3 Eosinophils # (Auto) 0.5 TH/MM3 0.3 TH/MM3 Basophils # (Auto) 0.0 TH/MM3 0.0 TH/MM3 CBC Comment AUTO DIFF DIFF FINAL Differential Comment AUTO DIFF CONFIRMED Platelet Estimate NORMAL Platelet Morphology Comment NORMAL Red Cell Morphology Comment NORMAL Prothrombin Time 10.9 SEC Prothromb Time International Ratio 1.0 RATIO Activated Partial Thromboplast Time 26.8 SEC Urine Color YELLOW Urine Turbidity HAZY Urine pH 6.0 Urine Specific [place] 1.017 Urine Protein 30 mg/dL Urine Glucose (UA) NEG mg/dL Urine Ketones NEG mg/dL Urine Occult Blood MOD Urine Nitrite NEG Urine Bilirubin NEG Urine Urobilinogen LESS THAN 2.0 MG/DL Urine Leukocyte Esterase LARGE Urine RBC 72 /hpf Urine WBC 99 /hpf Urine Bacteria MANY /hpf Urine Mucus FEW /lpf Microscopic Urinalysis Comment CATH-CULTURE IND Blood Urea Nitrogen 24 MG/DL Creatinine 0.75 MG/DL Random Glucose 75 MG/DL Total Protein 6.4 GM/DL Albumin 2.6 GM/DL Calcium Level 8.8 MG/DL Alkaline Phosphatase 92 U/L Aspartate Amino Transf (AST/SGOT) 12 U/L Alanine Aminotransferase (ALT/SGPT) 17 U/L Total Bilirubin 0.2 MG/DL Sodium Level 149 MEQ/L Potassium Level 3.5 MEQ/L Chloride Level 114 MEQ/L Carbon Dioxide Level 27.7 MEQ/L Anion Gap 7 MEQ/L Estimat Glomerular Filtration Rate 74 ML/MIN Lactic Acid Level 1.0 mmol/L Total Creatine Kinase 30 U/L Troponin I LESS THAN 0.02 NG/ML Microbiology Microbiology 07/01/17 Aerobic Blood Culture, Received Pending 07/01/17 Anaerobic Blood Culture, Received Pending 07/01/17 Aerobic Blood Culture, Received Pending 07/01/17 Anaerobic Blood Culture, Received Pending 07/01/17 Urine Culture, Received Pending Imaging Remarks Last Impressions Head CT 07/01/17 1330 Signed Impressions: Service Date/Time: Saturday, July 01, 2017 14:26 - CONCLUSION: 1. No bleed or other acute intracranial abnormality. 2. 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 No evidence of an acute ischemic event. 3. Chronic white matter changes and atrophy. Jamarcus Davis MD Chest X-Ray 07/01/170 Signed Impressions: Service Date/Time: Saturday, July 01, 2017 13:44 - CONCLUSION: No evidence of acute cardiopulmonary disease. Jamarcus Davis MD Current Medications Administered Medications Medications (Trade) Dose Ordered Sig/Rolando Route PRN Reason Start Time Stop Time Status Last Admin Dose Admin Sodium Chloride 1,000 ml @ 75 mls/hr [id number] IV 07/01/17 17:00 07/02/17 06:48 Sodium Chloride (NS Flush) 2 ml BID IV FLUSH 07/01/17 21:00 07/01/17 22:19 Heparin Sodium (Porcine) (Heparin Inj) 5,000 units Q12H SQ 07/01/17 20:00 07/01/17 22:15 Metoprolol Tartrate (Lopressor) 25 mg BID PO 07/01/17 21:00 07/01/17 22:14 Famotidine (Pepcid) 20 mg HS PO 07/01/17 21:00 07/01/17 22:14 Artificial Tears (Tears Naturale Opth Soln) 1 drop BID EACH EYE 07/01/17 21:00 07/01/17 22:15 (Victoria Walker) Physical Exam General General Appearance: Comfortable Appearance Remarks Nonverbal frail (Victoria Walker) Eyes Eye Exam: Pupils Reactive (Victoria Walker) Ears & Nose Ears & Nose Exam: Nasal Mucosa Nora (pale) (Victoria Walker) Throat Throat Exam: Oral Mucosa Nora & Moist (pale) (Victoria Walker) Neck Neck Exam: Neck Supple (Victoria Walker) Pulmonary Resp Exam: Clear Bilaterally, Breath Sounds Equal (low volumes), No Distress (Victoria Walker) Cardiology CV Exam: Regular (AaronVictoria lopez) Gastrointestinal/Abdomen GI Exam: Soft, Bowel Sounds Present (soft) (Victoria Walker) Genitourinary Remarks To be assessed (Victoria Walker) Musculoskeletal MS Exam: Atrophy (RussellVictoria lopez) Integumentary Skin Exam: Warm, Dry (pale) (Victoria Walker) Extremeties Extremities Exam: No Edema (lower extremity none) (Victoria Walker) Neurologic Neuro Exam: Awake (RussellVictoria lopez) Assessment/Plan Assessment/Plan UTI, R/O Urosepsis Hydration continues with IV fluids, patient does appear to be more awake today but is still nonverbal probable secondary to her dementia, continue empiric IV antibiotics, monitor intake and output, vital signs q4hr. Treat any abnormals, monitor fever., labs, monitor patient's ability to void, Rubalcava catheter if needed, or straight catheter 1 if no void in 6-8 hours. According to the sitter patient has had problems in the past with urinary retention, then will void a copious amount of urine Anemia monitor labs, no active blood loss noted, probable secondary to chronic disease, normalized this morning Hypernatremia monitor labs, a.m. labs are pending Acute Kidney Injury Continue hydration, monitor labs, Reported nausea and vomiting, diarrhea, currently taking PO fluids, cough noted, Will have speech eval swallow, appears delayed Increased AMS, not speaking, but nodds to simple questions, OOB with help only Hx Alzheimers Dementia Medical management, speech eval, PT eval and treat to assess her strength and mobility pending, discharge planning will be based on patient's needs, she does have caregivers with her at all times, land is probable home with her caregivers when she is stable Monitor bowel regimin DVT moniotring, Heparin SC PUD monitoring, Pepcid Discussed With: Nurse, Other (Dr. De Leon, seen on his behalf) (Victoria Walker) Assessment/Plan pt seen and examined as above labs and meds reviewed dw rn paln of care dw supervisor diagnostic dw care at bedside awaiting for urine culture (Dea De Leon MD) Victoria Walker Jul 02, 2017 09:04 Dea De Leon MD Jul 02, 2017 12:39
[2017-07-02 09:08] LABS: POTASSIUM 3.6 MEQ/L (3.5-5.1)
--- NOTE | 2017-07-02 14:57 | EKG ---
Date Performed: 07/01/2017 Time Performed: 13:36:30 PTAGE: 81 years EKG: Sinus rhythm WITH FIRST DEGREE AV BLOCK POSSIBLE RIGHT VENTRICULAR CONDUCTION DELAY ABNORMAL ECG PREVIOUS TRACING 03/17/17 First degree AV block is new from the old tracing. DOCTOR: Jovan Valle Interpretating Date/Time 07/02/2017 14:56:11
[2017-07-02] MEDS: cefTRIAXone INJ 1,000 MG in SODIUM CHLORIDE 0.9% INJ 100 ML IV SCH (17:06)
[2017-07-02] MEDS: FAMOTIDINE 20 MG TAB PO SCH (20:40)
[2017-07-03] VITALS (10 sets, daily range): BP systolic 119–162; BP diastolic 58–70; PULSE 71–86; RESP 17–20; TEMP 97.9–99.4; O2SAT 94–97
[2017-07-03] MEDS: SODIUM CHLOR 0.45% 1000 ML INJ 1,000 ML IV SCH ×2 (00:01→22:20)
--- NOTE | 2017-07-03 07:50 | HHI.FF ---
Face to Face Verification Diagnosis: (1) Altered mental status (2) UTI (urinary tract infection) Physical Therapy Order: Evaluate and Treat Home Health Nursing Order: Medical education Signs/symptoms of disease process Nursing assessment with vital signs I have seen patient Mi Wing on 07/03/17. My clinical findings support the need for the requested home health care services because: Deconditioned w/ increased weakness Limited ability to care for self Need for psychosocial assistance Impaired cognition/judgement I certify that my clinical findings support that this patient is homebound because: Impaired cognitive ability/safety Unsteady gait/balance Unsafe to leave home unassisted Need for psychosocial assistance Jacqui Frederick [facility] Jul 03, 2017 07:50
--- NOTE | 2017-07-03 08:01 | HHI.PR ---
Subjective Subjective Remarks non verbal per caregiver, more awake, appears to be more at her baselin no fever unable to obtain ROS Review of Systems Constitutional Constitutional Remarks unable to obtain ROS Vitals/Results Vital Signs Vital Signs Date Time Temp Pulse Resp B/P (MAP) Pulse Ox O2 Delivery O2 Flow Rate FiO2 07/03/17 07:00 84 07/03/17 05:04 98.3 72 18 128/60 (82) 96 07/03/17 04:00 73 07/03/17 01:52 98.7 74 17 147/65 (92) 97 07/03/17 00:00 74 07/02/17 21:15 98.5 83 17 147/66 (93) 94 07/02/17 19:59 88 07/02/17 15:37 98.2 76 18 121/58 (79) 97 07/02/17 11:02 98.8 77 16 140/63 (88) 98 07/02/17 10:41 76 CBC/BMP: 07/02/17 0734 07/02/17 0734 Physical Exam General General Appearance: Well Developed, Comfortable Eyes Eye Exam: Pupils Reactive Ears & Nose Ears & Nose Exam: Nasal Mucosa [place] Throat Throat Exam: Oral Mucosa [place] & Moist Neck Neck Exam: Neck Supple Pulmonary Resp Exam: Clear Bilaterally, Breath Sounds Equal, No Distress Cardiology CV Exam: Regular Gastrointestinal/Abdomen GI Exam: Soft, Non-Tender, Bowel Sounds Present, No Hepatosplenomegaly Musculoskeletal MS Exam: Atrophy, Unable to Ambulate Integumentary Skin Exam: Warm, Dry Extremeties Extremities Exam: No Edema, Pedal Pulses Palpable Neurologic Neuro Exam: Awake, No Focal Deficits VTE Prophylaxis VTE Prophylaxis Meds: Heparin PUD Prophylasis PUD Remarks PEPCID Assessment/Plan Problem List: (1) Altered mental status ICD Codes: R41.82 - Altered mental status, unspecified Status: Acute (2) UTI (urinary tract infection) ICD Codes: N39.0 - Urinary tract infection, site not specified Status: Acute (3) Hypernatremia ICD Codes: E87.0 - Hyperosmolality and hypernatremia (4) Dehydration ICD Codes: E86.0 - Dehydration Status: Acute (5) Dementia ICD Codes: F03.90 - Unspecified dementia without behavioral disturbance Status: Acute Assessment/Plan AMS sec. UTI, ? urinary retention, dehydration continue with Rocephin UC + GNR, sens. pending mentation improving continue with IVF Anemia CBC stable Hypernatremia continue IVF labs pending Alzheimers Dementia continue with medical management PT ST CM for dc planning, has HHC at home + caregivers DVT prophylaxis with Heparin SC PUD prophylaxis with Pepcid CM for dc planning, poss home with hhc today after sens is back D/W RN D/W caregiver D/W Dr. De Leon D/W CM She was seen by myself and Dr. De Leon, this note is written on his behalf Problem Qualifiers (1) Altered mental status: Qualified Codes: R41.82 - Altered mental status, unspecified (2) UTI (urinary tract infection): Qualified Codes: N39.0 - Urinary tract infection, site not specified; R31.9 - Hematuria, unspecified (3) Dementia: Qualified Codes: F03.90 - Unspecified dementia without behavioral disturbance Jacqui Frederick Jul 03, 2017 08:01
--- NOTE | 2017-07-03 08:03 | HHI.DCPOC ---
Discharge Care Plan Diagnosis: (1) UTI (urinary tract infection) (2) Altered mental status Your Health Problems Are: Difficulty with ADL Goals to Promote Your Health * To prevent worsening of your condition and complications * To maintain your health at the optimal level Directions to Meet Your Goals Take your medications as prescribed Follow your dietary instruction Follow activity as directed Keep your appointments as scheduled Take your immunizations and boosters as scheduled If your symptoms worsen call your PCP, if no PCP go to Urgent Care Center or Emergency Room Smoking is Dangerous to Your Health. Avoid second hand smoke Call the 24-hour hour crisis hotline for domestic abuse at Jacqui Frederick [facility] Jul 03, 2017 08:03
[2017-07-03 08:46] LABS: BICARBONATE 25.9 MEQ/L (21.0-32.0); POTASSIUM 3.4 MEQ/L (3.5-5.1)
[2017-07-03] MEDS: ARTIFICIAL TEARS OPTH SOLN 15 ML BTL EACH EYE SCH ×2 (09:49→21:11)
[2017-07-03] MEDS: HEPARIN SODIUM - SQ 10,000 UNITS/ML VIAL SQ SCH ×2 (09:49→21:12)
[2017-07-03] MEDS: SODIUM CHLORIDE 0.9% FLUSH 10 ML FLUSH IV FLUSH SCH ×2 (09:50→21:11)
[2017-07-03] MEDS: CHOLECALCIFEROL (VIT D3) 1000 UNIT TAB PO SCH (09:50)
[2017-07-03] MEDS: METOPROLOL TARTRATE 25 MG TAB PO SCH ×2 (09:50→21:10)
[2017-07-03] MEDS: amLODIPine BESYLATE 5 MG TAB PO SCH (09:50)
[2017-07-03] MEDS ORDERED: POTASSIUM CHLORIDE 20 MEQ CONTROLLED RELEASE TAB PO ONE (13:00)
[2017-07-03] MEDS: cefTRIAXone INJ 1,000 MG in SODIUM CHLORIDE 0.9% INJ 100 ML IV SCH (15:18)
[2017-07-03] MEDS: FAMOTIDINE 20 MG TAB PO SCH (21:10)
[2017-07-04] MEDS: SODIUM CHLOR 0.45% 1000 ML INJ 1,000 ML IV SCH (03:36)
[2017-07-04 03:53] VITALS: BP 126/59; PULSE 74; RESP 18; TEMP 98.7; O2SAT 94
[2017-07-04] MEDS: METOPROLOL TARTRATE 25 MG TAB PO SCH (08:11)
[2017-07-04] MEDS: ARTIFICIAL TEARS OPTH SOLN 15 ML BTL EACH EYE SCH (08:11)
[2017-07-04] MEDS: CHOLECALCIFEROL (VIT D3) 1000 UNIT TAB PO SCH (08:11)
[2017-07-04] MEDS: amLODIPine BESYLATE 5 MG TAB PO SCH (08:11)
[2017-07-04] MEDS: SODIUM CHLORIDE 0.9% FLUSH 10 ML FLUSH IV FLUSH SCH (08:11)
[2017-07-04] MEDS: HEPARIN SODIUM - SQ 10,000 UNITS/ML VIAL SQ SCH (08:11)
[2017-07-04] MEDS ORDERED: CEFU1TAB20 PO (08:30)
--- NOTE | 2017-07-04 08:33 | HHI.PR ---
Subjective Subjective Remarks non verbal per caregiver, more awake, appears to be more at her baseline. endorses pt. has multiple UTIs, poss sec. to retention. At times only voids 2x a day no fever unable to obtain ROS Review of Systems Constitutional Constitutional Remarks unable to obtain ROS Vitals/Results Vital Signs Vital Signs Date Time Temp Pulse Resp B/P (MAP) Pulse Ox O2 Delivery O2 Flow Rate FiO2 07/04/17 03:53 98.7 74 18 126/59 (81) 94 07/03/17 23:27 98.6 71 18 143/66 (91) 96 07/03/17 19:57 98.6 85 18 162/70 (100) 97 07/03/17 17:22 97.9 84 20 133/63 (86) 95 07/03/17 11:27 99.4 86 18 121/59 (79) 94 CBC/BMP: 07/02/17 0734 07/03/17 0723 Physical Exam General General Appearance: Well Developed, Comfortable Eyes Eye Exam: Pupils Reactive Ears & Nose Ears & Nose Exam: Nasal Mucosa [place] Throat Throat Exam: Oral Mucosa [place] & Moist Neck Neck Exam: Neck Supple Pulmonary Resp Exam: Clear Bilaterally, Breath Sounds Equal, No Distress Cardiology CV Exam: Regular Gastrointestinal/Abdomen GI Exam: Soft, Non-Tender, Bowel Sounds Present, No Hepatosplenomegaly Musculoskeletal MS Exam: Atrophy, Unable to Ambulate Integumentary Skin Exam: Warm, Dry Extremeties Extremities Exam: No Edema, Pedal Pulses Palpable Neurologic Neuro Exam: Awake, No Focal Deficits VTE Prophylaxis VTE Prophylaxis Meds: Heparin PUD Prophylasis PUD Remarks PEPCID Assessment/Plan Problem List: (1) Altered mental status ICD Codes: R41.82 - Altered mental status, unspecified Status: Acute (2) UTI (urinary tract infection) ICD Codes: N39.0 - Urinary tract infection, site not specified Status: Acute (3) Hypernatremia ICD Codes: E87.0 - Hyperosmolality and hypernatremia (4) Dehydration ICD Codes: E86.0 - Dehydration Status: Acute (5) Dementia ICD Codes: F03.90 - Unspecified dementia without behavioral disturbance Status: Acute Assessment/Plan AMS sec. UTI, ? urinary retention, dehydration continue with Rocephin UC + GNR, sens. pending mentation improving continue with IVF recommends she f/u urology, d/w caregiver. Anemia CBC stable Hypernatremia continue IVF Na 144 Alzheimers Dementia continue with medical management PT ST CM for dc planning, has HHC at home + caregivers DVT prophylaxis with Heparin SC PUD prophylaxis with Pepcid CM for dc planning, home today with HHC, sens still pending F/U urology, pcp diet -heart healthy enc. fluids activity-as tolerated D/W RN D/W caregiver D/W Dr. De Leon D/W CM She was seen by myself and Dr. De Leon, this note is written on his behalf Discharge Minutes: 45 Problem Qualifiers (1) Altered mental status: Qualified Codes: R41.82 - Altered mental status, unspecified (2) UTI (urinary tract infection): Qualified Codes: N39.0 - Urinary tract infection, site not specified; R31.9 - Hematuria, unspecified (3) Dementia: Qualified Codes: F03.90 - Unspecified dementia without behavioral disturbance Jacqui Frederick Jul 04, 2017 08:32
[2017-07-04 08:35] VITALS: BP 152/67; PULSE 73; RESP 18; TEMP 98.3; O2SAT 95
--- NOTE | 2017-07-04 17:51 | HHI.DS ---
Discharge Summary Admission Date Jul 01, 2017 at 15:47 Discharge Date: Jul 04, 2017 Admitting Diagnosis UTI/AMS (1) Anemia ICD Codes: D64.9 - Anemia, unspecified Diagnosis: Secondary (2) Hypernatremia ICD Codes: E87.0 - Hyperosmolality and hypernatremia Diagnosis: Principal (3) Dementia ICD Codes: F03.90 - Unspecified dementia without behavioral disturbance Diagnosis: Secondary Status: Acute (4) Dehydration ICD Codes: E86.0 - Dehydration Diagnosis: Principal Status: Acute (5) UTI (urinary tract infection) ICD Codes: N39.0 - Urinary tract infection, site not specified Diagnosis: Principal Status: Acute (6) Altered mental status ICD Codes: R41.82 - Altered mental status, unspecified Diagnosis: Secondary Status: Acute CBC/BMP: 07/02/17 0734 07/03/17 0723 Significant Findings Laboratory Tests Test 07/02/17 07:34 07/03/17 07:23 Red Blood Count 3.76 MIL/MM3 (4.00-5.30) Hematocrit 34.7 % (35.0-46.0) Monocytes (%) (Auto) 8.4 % (0.0-8.0) Eosinophils (%) (Auto) 4.7 % (0.0-4.0) Sodium Level 146 MEQ/L (136-145) Chloride Level 111 MEQ/L (98-107) 110 MEQ/L (98-107) Estimat Glomerular Filtration Rate 81 ML/MIN (>89) 87 ML/MIN (>89) Potassium Level 3.4 MEQ/L (3.5-5.1) Hospital Course 81-year-old female brought in via EMS from home for altered mental status. She has a history of dementia. She has a caregiver that stays with her continuously at her house. Since Friday there has been increasing lethargy, nausea, vomiting and diarrhea, however she has remained afebrile. Patient was not verbally communicating today. However she communicates verbally but is confused at her baseline. Patient was moving all extremities spontaneously and to command. EKG, CBC, CMP, troponin and CK, PT INR, UA, lactic acid, blood cultures 2, chest x-ray, Brain CT ordered in the ED. 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 UTI, ? urinary retention, dehydration Put on Rocephin Followed cultures-- UC + GNR,= Escherichia coli mentation improved continued with IVF recommended she f/u urology, d/w caregiver. Anemia CBC stable No active bleeding Hypernatremia Put on IV fluids, sodium improved 144. Alzheimers Dementia continued with medical management PT ST ordered Put on appropriate DVT prophylaxis with Heparin SC and PUD prophylaxis with Pepcid Patient's condition improved, no fever. Mentation back to baseline CM consulted for dc planning Patient discharged home with home health care and caregivers in stable condition Instructed caregivers to: F/U urology, pcp diet -heart healthy enc. fluids activity-as tolerated Pt Condition on Discharge: Stable Discharge Disposition: Disch w/ Home Health Serv Discharge Instructions DIET: Follow Instructions for: As Tolerated, No Restrictions Speech Therapy-Diet Recommends: Honey Thickened Liquids, Mechanical Soft Activities you can perform: Weight Bearing as Addie Follow up Referrals: PCP Follow-up Urology New Medications: Cefuroxime (Cefuroxime) 500 Mg Tab 500 MG PO BID for Infection for 5 Days, #10 TAB 0 Refills Continued Medications: Amlodipine (Norvasc) 5 Mg Tab 5 MG PO DAILY for Blood Pressure Management, #30 TAB 0 Refills Cholecalciferol (Vitamin D-1000) 1,000 Unit Tab 1000 UNITS PO DAILY for Nutritional Supplement, #1 BOTTLE 0 Refills Dextran 70/Hypromellose (Artificials Tears Drops) 30 Ml Drops 1 DROP EACH EYE BID Fluoxetine (Prozac) 10 Mg Cap 10 MG PO DAILY, #30 CAP 0 Refills Metoprolol Tartrate (Metoprolol Tartrate) 25 Mg Tab 25 MG PO BID, #60 TAB 0 Refills Risperidone (Risperidone) 0.5 Mg Tab 1 MG PO HS, #30 TAB 0 Refills Discontinued Medications: Doxycycline Hyclate (Doxycycline Hyclate) 100 Mg Cap 100 MG PO BID for Infection, CAP 0 Refills Gross,Jacqui G. [employer] Jul 04, 2017 17:51
== END 2017-07-04 11:37 | disposition home or self-care (01) ==
LOC: NEPC 13:19 → NEDA 15:47 → NEPGCP 18:46
PROVIDERS: ADMIT Specialist; ATTEND Specialist
DX: D64.9 Anemia, unspecified (principal); E86.0 Dehydration; F02.80 Dementia in other diseases classified elsewhere, unspecified severity, without behavioral disturbance, psychotic disturbance, mood disturbance, and anxiety; R94.31 Abnormal electrocardiogram [ECG] [EKG]; N39.0 Urinary tract infection, site not specified; B96.20 Unspecified Escherichia coli [E. coli] as the cause of diseases classified elsewhere; R19.7 Diarrhea, unspecified; R11.2 Nausea with vomiting, unspecified; I10 Essential (primary) hypertension; E87.0 Hyperosmolality and hypernatremia; N17.9 Acute kidney failure, unspecified; G30.9 Alzheimer's disease, unspecified; R32 Unspecified urinary incontinence
CPT/HCPCS: 70450; 71010; 80048; 80053; 81001; 82550; 83605; 84484; 85025; 85610; 85730; 87040; 87077; 87086; 87186; 92526; 92610; 93005; 96360; 96361; 96365; 96366; 96372; 96375; 96376; 97162; 99285; G0378; G8987; G8988; G8996; G8997; G8998; J0696; J1644; J2405; J7040; P9612